=== PATIENT | female | born 1970 | race Two or more races ===

== ENCOUNTER 2019-03-24 11:35 | Inpatient (IN) | payer OTHER ==
[2019-03-24 12:16] VITALS: BMI 38.9
--- NOTE | 2019-03-24 13:00 | PDOC ---
History of Present Illness - General Chief Complaint: Edema Stated Complaint: Edema Time Seen by Provider: 03/24/19 13:00 History Source: Patient Exam Limitations: No Limitations - History of Present Illness Initial Comments: 03/24/19 13:15 48 year old female with PMH DVT/PE on Coumadin, chronic LLE wound (no wound care , uninsured) presented to ED for bruising since yesterday. Pt reported nontraumatic bruising to bilateral arms and legs. Pt reported her LLE wound has been present for 8 years, but has been increasingly painful over the last couple of days, limiting her mobility. Past History - Past Medical History Allergies/Adverse Reactions: Allergies Allergy/AdvReac Type Severity Reaction Status Date / Time No Known Allergies Allergy Verified 03/24/19 12:16 Home Medications: Ambulatory Orders Ferrous Sulfate Liquid [Feosol Liquid] 300 mg PO TID 09/11/12 Furosemide [Lasix -] 40 mg PO HS 09/11/12 Mesalamine [Asacol -] 800 mg PO TID 09/11/12 Multivitamin [Multivitamins] 1 each PO DAILY 09/11/12 Warfarin Sodium [Coumadin] 4 mg PO HS 09/11/12 Amox-Tr/K Cl [Augmentin] 1 each PO BID #14 tablet 09/19/12 Oxycodone HCl/Acetaminophen [Percocet 5-325 mg Tablet] 1 - 2 tab PO Q6H PRN #0 tablet 09/19/12 Pantoprazole Sodium [Protonix -] 40 mg PO BID #0 tablet.ec 09/19/12 Anemia: Yes Cardiac Disorders: Yes (afib) COPD: No GI Disorders: Yes (ulcerative colitis) HTN: Yes - Immunization History Immunization Up to Date: Yes - Suicide/Smoking/Psychosocial Hx Smoking Status: No Smoking History: Never smoked Have you smoked in the past 12 months: No Number of Cigarettes Smoked Daily: 0 If you are a former smoker, when did you quit?: stopped 5 yrs ago Cigars Per Day: 0 Information on smoking cessation initiated: No Hx Alcohol Use: No Drug/Substance Use Hx: No Substance Use Type: None Hx Substance Use Treatment: No Review of Systems - Review of Systems Able to Perform ROS?: Yes Comments:: 03/24/19 13:17 General: denied fever, chills, generalized weakness. HEENT: denied sore throat, rhinorrhea, ear pain. Heart: denied chest pain, palpitations, syncope, diaphoresis. Respiratory: denied shortness of breath, cough, sputum production, hemoptysis. Abdomen: denied abdominal pain, nausea, vomiting, diarrhea, constipation, blood in stool. : denied dysuria, increased urinary frequency, hematuria, urinary incontinence , flank pain. Back: denied back pain. Musculoskeletal: denied joint pain, muscle pain, joint swelling. Neurological: denied headache, dizziness, numbness, tingling, weakness. Skin: admitted to bruising. denied rash, laceration, abrasion. *Physical Exam - Vital Signs Last Vital Signs Temp Pulse Resp BP Pulse Ox 97.9 F 95 H 16 109/62 100 03/24/19 11:35 03/24/19 11:35 03/24/19 11:35 03/24/19 11:35 03/24/19 11:35 - Physical Exam Comments: 03/24/19 13:17 Constitutional: Well-nourished, Well-developed, appearing stated age. morbidly obese. HEENT: head is normocephalic, atraumatic. EOMI. PERRLA. Neck: supple. Full ROM. Heart: regular rhythm. no murmurs, rubs or gallops. Lungs: clear to auscultation bilaterally. no crackles, rhonchi or wheezing. no stridor. Abdomen: soft, nontender. normal bowel sounds. no rebound, guarding, masses. Extremities: peripheral pulses intact. no lower extremity edema. Neurological: CN 2-12 grossly intact. moves all four extremities. Psych: awake, alert, oriented x3. follows commands. answers questions appropriately. Skin: diffuse ecchymoses to left hand, right hand, left foot, right foot. 30 cm cricumferential ulcer to left medial lower leg, draining purulent fluid. erythema to left foot. ED Treatment Course - LABORATORY CBC & Chemistry Diagram: 03/25/19 09:30 03/25/19 09:30 Medical Decision Making - Medical Decision Making 03/24/19 13:18 48 year old female with above PMH presented to ED for diffuse ecchymoses since yesterday. Pt also complaining of increasing pain to chronic LLE wound. Initial Vital Signs Temp Pulse Resp BP Pulse Ox 97.9 F 95 H 16 109/62 100 03/24/19 11:35 03/24/19 11:35 03/24/19 11:35 03/24/19 11:35 03/24/19 11:35 Afebrile. No tachycardia. No tachypnea. Mild hypotension. No hypoxia on room air. Labs ordered: CBC, CMP, coags, BNP, blood cultures, phos, mag, Imaging ordered: none Medications ordered: tylenol IV 03/24/19 14:07 CBC WBC 20.3 K/mm3 (4.0-10.0) H 03/24/19 13:07 RBC 2.66 M/mm3 (3.60-5.2) L 03/24/19 13:07 Hgb 6.0 GM/dL (10.7-15.3) L* 03/24/19 13:07 Hct 19.7 % (32.4-45.2) L D 03/24/19 13:07 MCV 74.1 fl (80-96) L 03/24/19 13:07 MCH 22.4 pg (25.7-33.7) L 03/24/19 13:07 MCHC 30.3 g/dl (32.0-36.0) L 03/24/19 13:07 RDW 21.4 % (11.6-15.6) H 03/24/19 13:07 Plt Count 598 K/MM3 (134-434) H 03/24/19 13:07 MPV 7.3 fl (7.5-11.1) L 03/24/19 13:07 Absolute Neuts (auto) 18.2 K/mm3 (1.5-8.0) H 03/24/19 13:07 Neutrophils % 89.6 % (42.8-82.8) H 03/24/19 13:07 Neutrophils % (Manual) 90.0 % (42.8-82.8) H 03/24/19 13:07 Band Neutrophils % 3.0 % 03/24/19 13:07 Lymphocytes % 6.1 % (8-40) L D 03/24/19 13:07 Lymphocytes % (Manual) 4.0 % (8-40) L 03/24/19 13:07 Monocytes % 4.2 % (3.8-10.2) 03/24/19 13:07 Monocytes % (Manual) 3 % (3.8-10.2) L 03/24/19 13:07 Eosinophils % 0.0 % (0-4.5) D 03/24/19 13:07 Eosinophils % (Manual) 0.0 % (0-4.5) 03/24/19 13:07 Basophils % 0.1 % (0-2.0) 03/24/19 13:07 Basophils % (Manual) 0.0 % (0-2.0) 03/24/19 13:07 Myelocytes % (Man) 0 % (0-2) 03/24/19 13:07 Promyelocytes % (Man) 0 % (0-2) 03/24/19 13:07 Blast Cells % (Manual) 0 % (0-0) 03/24/19 13:07 Nucleated RBC % 0 % (0-0) 03/24/19 13:07 Metamyelocytes 0 % (0-2) 03/24/19 13:07 Hypochromia 1+ 03/24/19 13:07 Platelet Estimate Increased 03/24/19 13:07 Platelet Comment Present 03/24/19 13:07 Polychromasia 1+ 03/24/19 13:07 Poikilocytosis 1+ 03/24/19 13:07 Anisocytosis 2+ 03/24/19 13:07 Microcytosis 1+ 03/24/19 13:07 Macrocytosis 0 03/24/19 13:07 Tear Drop Cells 1+ 03/24/19 13:07 Ovalocytes 1+ 03/24/19 13:07 Microcytic anemia Leukocytosis with left shift. Thrombocytosis. CMP Sodium 141 mmol/L (136-145) 03/24/19 13:07 Potassium 4.0 mmol/L (3.5-5.1) 03/24/19 13:07 Chloride 108 mmol/L (98-107) H 03/24/19 13:07 Carbon Dioxide 26 mmol/L (21-32) 03/24/19 13:07 Anion Gap 7 MMOL/L (8-16) L 03/24/19 13:07 BUN 20.8 mg/dL (7-18) H 03/24/19 13:07 Creatinine 0.8 mg/dL (0.55-1.3) 03/24/19 13:07 Est GFR (CKD-EPI)AfAm 100.33 03/24/19 13:07 Est GFR (CKD-EPI)NonAf 86.57 03/24/19 13:07 Random Glucose 123 mg/dL (74-106) H 03/24/19 13:07 Calcium 7.8 mg/dL (8.5-10.1) L 03/24/19 13:07 Phosphorus 2.3 mg/dL (2.5-4.9) L 03/24/19 13:07 Magnesium 2.3 mg/dL (1.8-2.4) 03/24/19 13:07 Total Bilirubin 0.2 mg/dL (0.2-1) 03/24/19 13:07 AST 11 U/L (15-37) L 03/24/19 13:07 ALT 20 U/L (13-61) 03/24/19 13:07 Alkaline Phosphatase 122 U/L (45-117) H 03/24/19 13:07 B-Natriuretic Peptide 301.5 pg/ml (5-125) H 03/24/19 13:07 Total Protein 5.9 g/dl (6.4-8.2) L 03/24/19 13:07 Albumin 2.3 g/dl (3.4-5.0) L 03/24/19 13:07 TSH 0.79 uIU/ml (0.358-3.74) 03/24/19 13:07 Serum , Qual Negative 03/24/19 13:07 No electrolyte abnormalities. No MANDO. Corrected Calcium 8.7 Low phosphorus. Normal TSH. Mildly elevated BNP. Pt reassessed, pain not improved with Tylenol. Pt informed of results and need for blood transfusion, admission, wound care, IV antibiotics. Pt agree with plan for care. Medications ordered: 1 phos packet, morphine 4 mg IV, vancomycin, zosyn Labs ordered: stool for blood, T/S 03/24/19 15:[address] Hurtado about the patient, pt to be admitted. She recommended CT abdomen/pelvis to rule out retroperitoneal bleeding. Imaging ordered: CT abdomen/pelvis with IV contrast. 03/24/19 17:38 Stool for blood positive. 03/25/19 15:04 Follow up: CT abdomen/pelvis report: Comparison: Prior CT scan of the abdomen pelvis dated 04/29/2012 Visualized lung base appears unremarkable and the heart is within normal limits in size. There is a [id number] hiatus hernia. The stomach is nondistended limiting evaluation of its wall. The liver, spleen, gallbladder , pancreas, both adrenal glands and both kidneys appear unremarkable. There is no evidence of small bowel obstruction. Normal-appearing terminal ileum and appendix. Normal stool burden the colon without wall thickening. There is suggestion of a few diverticula in the mid descending colon without evidence of acute diverticulitis. Inferior vena cava filter is in satisfactory position. No free air, free fluid or gross enlarged lymph nodes are identified. Partially distended urinary bladder without wall thickening. Normal size uterus. There is a cyst in the right and left ovary measuring approximately 2.3 cm on the right and 2.3 cm on the left suggestive of dominant follicles. Perirectal and pericecal fat are clear. There is 1.4 cm anterolisthesis of L5 over S1 with bilateral spondylolysis of L5 pars interarticularis The rest of the included the visualized osseous structures appear intact. Impression: Interval small to moderate size hiatus hernia. Inferior vena cava filter is in satisfactory position. A few diverticula in the mid descending colon without wall thickening or evidence of acute diverticulitis. No CT evidence of an acute process in the abdomen and pelvis. Correlate clinically to determine further evaluation and follow-up. CXR report: Since 08/22/2012, the cardiac silhouette remains within normal limits in size with mild atherosclerotic unfolding of the aortic arch and mild bilateral increased lung markings. Mild elevation of the right hemidiaphragm. Mediastinum and visualized osseous structures appear intact Impression: Mild increased lung markings without gross evidence of focal infiltrates or gross pulmonary venous congestion. Correlate clinically for follow-up. *DC/Admit/Observation/Transfer Diagnosis at time of Disposition: Supratherapeutic INR, Leukocytosis, Wound of lower extremity, Anemia - Discharge Dispostion Condition at time of disposition: Stable Decision to Admit order: Yes - Referrals - Patient Instructions - Post Discharge Activity
[2019-03-24] MEDS ORDERED: ACETAMINOPHEN 1000 MG/100 ML VIAL (NON FORMULARY) IVPB ONE (13:15)
[2019-03-24] MEDS ORDERED: ACETAMINOPHEN INJECTION 100 ML IVPB ONE (13:26)
[2019-03-24 13:36] LABS: BASO % 0.1 % (0-2.0); HEMATOCRIT 19.7 % (32.4-45.2); LYMPH % 6.1 % (8-40); MCH 22.4 pg (25.7-33.7); MCHC 30.3 g/dl (32.0-36.0); MEAN CELL VOLUME 74.1 fl (80-96); MEAN PLT VOLUME 7.3 fl (7.5-11.1); MONO % 4.2 % (3.8-10.2); NEUT % 89.6 % (42.8-82.8); PLATELET COUNT 598 K/MM3 (134-434); RBC 2.66 M/mm3 (3.60-5.2); RDW 21.4 % (11.6-15.6); WHITE BLOOD COUNT 20.3 K/mm3 (4.0-10.0)
[2019-03-24 13:42] LABS: PROTHROMBIN TIME (PATIENT) 63.8 SEC (9.7-13.0)
[2019-03-24 13:45] LABS: ACTIVATED PTT 60.4 SECONDS (25.2-36.5)
[2019-03-24 14:05] LABS: INR 5.32 (0.83-1.09)
[2019-03-24] MEDS ORDERED: SODIUM CHLORIDE 1,000 ML IV STA (14:10)
[2019-03-24 14:13] LABS: ALBUMIN 2.3 g/dl (3.4-5.0); BILIRUBIN,TOTAL 0.2 mg/dL (0.2-1); BLOOD UREA NITROGEN 20.8 mg/dL (7-18); CALCIUM 7.8 mg/dL (8.5-10.1); CREATININE 0.8 mg/dL (0.55-1.3); MAGNESIUM 2.3 mg/dL (1.8-2.4); N-TERMINAL BNP 301.5 pg/ml (5-125); PHOSPHOROUS 2.3 mg/dL (2.5-4.9); TOT PROT 5.9 g/dl (6.4-8.2)
[2019-03-24] MEDS ORDERED: morphine CARPU-JECT 4 MG/1 ML DISP.SYRIN IVPUSH ONE ×2 (14:18→18:35)
[2019-03-24] MEDS ORDERED: NAPH,MB-DB/K PH,MBDB POWDER PACKET PO ONE (14:19)
[2019-03-24] MEDS ORDERED: VANCOMYCIN 1,000 MG in DEXTROSE 5%-WATER - 250 ML IVPB ONE (14:20)
[2019-03-24] MEDS ORDERED: PIPERACILLIN/TAZOB 4.5 GM 4.5 GM in DEXTROSE 5%-WATER 100 ML IVPB ONE (14:20)
[2019-03-24] MEDS ORDERED: CALCIUM CARBONATE 650 MG TABLET PO ONE (14:30)
[2019-03-24 14:47] LABS: ANISOCYTOSIS 2+; MACROCYTOSIS 0; OVALOCYTE 1+; PLATELET ESTIMATE INCREASED; TEAR DROP CELLS 1+
[2019-03-24] MEDS ORDERED: PIPERACILLIN/TAZOB 4.5 GM 4.5 GM/100 ML BAG IVPB ONE (14:49)
[2019-03-24] MEDS ORDERED: VANCOMYCIN 1 GRAM (PRE-DOCKED) 1,000 MG/250 ML BAG IVPB ONE (14:49)
[2019-03-24] MEDS ORDERED: morphine SULFATE 4 MG/ML VIAL ONE ×2 (14:49→18:25)
--- NOTE | 2019-03-24 15:27 | PDOC ---
Documentation entered by Meliton Henning SCRIBE, acting as scribe for Nathaly Cano MD. Nathaly Cano MD: This documentation has been prepared by the Milady phillips Nirvannie, SCRIBE, under my direction and personally reviewed by me in its entirety. I confirm that the documentation accurately reflects all work, treatment, procedures, and medical decision making performed by me. Attending Attestation - Resident Resident Name: Kyleigh Isabel - ED Attending Attestation I have performed the following: I have examined & evaluated the patient, The case was reviewed & discussed with the resident, I agree w/resident's findings & plan, Exceptions are as noted - HPI HPI: 03/24/19 14:10 The patient is a 48 year old female, with a significant past medical history of anemia, ulcerative colitis, DVT/PE, and Afib (on Coumadin), who presents to the emergency department with, blt nontraumatic upper and lower extremity bruising and LLE ulcer with increased pain. She denies recent chest pain or shortness of breath. Allergies: NKDA - Physicial Exam PE: 03/24/19 13:12 GENERAL: Awake, alert, and fully oriented, in no acute distress HEAD: No signs of trauma EYES: PERRLA, EOMI, sclera anicteric, conjunctiva clear ENT: Auricles normal inspection, hearing grossly normal, nares patent, oropharynx clear without exudates. Moist mucosa NECK: Normal ROM, supple, no lymphadenopathy, JVD, or masses LUNGS: Breath sounds equal, clear to auscultation bilaterally. No wheezes, and no crackles HEART: Regular rate and rhythm, normal S1 and S2, no murmurs, rubs or gallops ABDOMEN: Soft, nontender, normoactive bowel sounds. No guarding, no rebound. No masses EXTREMITIES: Normal range of motion. 3+ pitting edema to RLE. No clubbing or cyanosis. No cords, erythema, or tenderness. LLE with large wound 30 cm long ( extending from knee to the ankle, circumferential), +malodorous yellow discharge from the entire wound. No muscle exposure. L foot erythematous and significantly swollen and tender with warmth. NEUROLOGICAL: Cranial nerves II through XII grossly intact. Normal speech. Motor and sensation intact SKIN: Warm, Dry, normal turgor. - Medical Decision Making Pt found to have severe anemia, as well as leukocytosis. Treated with broad spectrum abx for large leg wound. Will admit.
--- NOTE | 2019-03-24 17:33 | HP ---
Admitting History and Physical - Primary Care Physician PCP: Salome Hurtado - Admission History of Present Illness: 48 year old female with PMH DVT/PE on Coumadin, chronic LLE wound (no wound care , uninsured) presented to ED for bruising since yesterday. Pt reported nontraumatic bruising to bilateral arms and legs. Pt reported her LLE wound has been present for 8 years, but has been increasingly painful over the last couple of days, limiting her mobility. - Past Medical History Pulmonary: Yes: Pulmonary Embolus ...LMP: 11/06/11 Heme/Onc: Yes: Other (dvt) - Smoking History Smoking history: Never smoked Have you smoked in the past 12 months: No Aproximately how many cigarettes per day: 0 If you are a former smoker, when did you quit?: stopped 5 yrs ago - Alcohol/Substance Use Hx Alcohol Use: No Home Medications - Allergies Allergies/Adverse Reactions: Allergies Allergy/AdvReac Type Severity Reaction Status Date / Time No Known Allergies Allergy Verified 03/24/19 12:16 - Home Medications Home Medications: Ambulatory Orders Ferrous Sulfate Liquid [Feosol Liquid] 300 mg PO TID 09/11/12 Furosemide [Lasix -] 40 mg PO HS 09/11/12 Mesalamine [Asacol -] 800 mg PO TID 09/11/12 Multivitamin [Multivitamins] 1 each PO DAILY 09/11/12 Warfarin Sodium [Coumadin] 4 mg PO HS 09/11/12 Amox-Tr/K Cl [Augmentin] 1 each PO BID #14 tablet 09/19/12 Oxycodone HCl/Acetaminophen [Percocet 5-325 mg Tablet] 1 - 2 tab PO Q6H PRN #0 tablet 09/19/12 Pantoprazole Sodium [Protonix -] 40 mg PO BID #0 tablet.ec 09/19/12 Physical Examination Vital Signs: Vital Signs Temperature 97.9 F 03/24/19 11:35 Pulse Rate 95 H 03/24/19 11:35 Respiratory Rate 16 03/24/19 11:35 Blood Pressure 109/62 03/24/19 11:35 O2 Sat by Pulse Oximetry (%) 100 03/24/19 11:35 Constitutional: Yes: No Distress HENT: Yes: Atraumatic Neck: Yes: Supple Cardiovascular: Yes: Regular Rate and Rhythm Respiratory: Yes: CTA Bilaterally Gastrointestinal: Yes: Normal Bowel Sounds Edema: No Neurological: Yes: Alert, Oriented Labs: CBC, BMP 03/24/19 13:07 03/24/19 13:07 Problem List - Problems (1) Anemia Assessment/Plan: getting blood transfusion Code(s): D64.9 - ANEMIA, UNSPECIFIED (2) Leukocytosis Code(s): D72.829 - ELEVATED WHITE BLOOD CELL COUNT, UNSPECIFIED (3) Supratherapeutic INR Code(s): R79.1 - ABNORMAL COAGULATION PROFILE (4) Wound of lower extremity Assessment/Plan: iv abx id and vascular consult Code(s): S81.809A - UNSPECIFIED OPEN WOUND, UNSPECIFIED LOWER LEG, INIT ENCNTR Assessment/Plan Laboratory Tests 03/24/19 03/24/19 03/24/19 13:07 13:07 13:07 WBC 20.3 H RBC 2.66 L Hgb 6.0 L* Hct 19.7 L D MCV 74.1 L MCH 22.4 L MCHC 30.3 L RDW 21.4 H Plt Count 598 H MPV 7.3 L Absolute Neuts (auto) 18.2 H Neutrophils % 89.6 H Neutrophils % (Manual) 90.0 H Band Neutrophils % 3.0 Lymphocytes % 6.1 L D Lymphocytes % (Manual) 4.0 L Monocytes % 4.2 Monocytes % (Manual) 3 L Eosinophils % 0.0 D Eosinophils % (Manual) 0.0 Basophils % 0.1 Basophils % (Manual) 0.0 Myelocytes % (Man) 0 Promyelocytes % (Man) 0 Blast Cells % (Manual) 0 Nucleated RBC % 0 Metamyelocytes 0 Hypochromia 1+ Platelet Estimate Increased Platelet Comment Present Polychromasia 1+ Poikilocytosis 1+ Anisocytosis 2+ Microcytosis 1+ Macrocytosis 0 Tear Drop Cells 1+ Ovalocytes 1+ PT with INR 63.80 H INR 5.32 H* PTT (Actin FS) 60.4 H Sodium 141 Potassium 4.0 Chloride 108 H Carbon Dioxide 26 Anion Gap 7 L BUN 20.8 H Creatinine 0.8 Est GFR (CKD-EPI)AfAm 100.33 Est GFR (CKD-EPI)NonAf 86.57 Random Glucose 123 H Calcium 7.8 L Phosphorus 2.3 L Magnesium 2.3 Total Bilirubin 0.2 AST 11 L ALT 20 Alkaline Phosphatase 122 H B-Natriuretic Peptide 301.5 H Total Protein 5.9 L Albumin 2.3 L TSH 0.79 Serum , Qual Stool Occult Blood Crossmatch 03/24/19 03/24/19 03/24/19 13:07 15:41 16:00 WBC RBC Hgb Hct MCV MCH MCHC RDW Plt Count MPV Absolute Neuts (auto) Neutrophils % Neutrophils % (Manual) Band Neutrophils % Lymphocytes % Lymphocytes % (Manual) Monocytes % Monocytes % (Manual) Eosinophils % Eosinophils % (Manual) Basophils % Basophils % (Manual) Myelocytes % (Man) Promyelocytes % (Man) Blast Cells % (Manual) Nucleated RBC % Metamyelocytes Hypochromia Platelet Estimate Platelet Comment Polychromasia Poikilocytosis Anisocytosis Microcytosis Macrocytosis Tear Drop Cells Ovalocytes PT with INR INR PTT (Actin FS) Sodium Potassium Chloride Carbon Dioxide Anion Gap BUN Creatinine Est GFR (CKD-EPI)AfAm Est GFR (CKD-EPI)NonAf Random Glucose Calcium Phosphorus Magnesium Total Bilirubin AST ALT Alkaline Phosphatase B-Natriuretic Peptide Total Protein Albumin TSH Serum , Qual Negative Stool Occult Blood Positive Crossmatch See Detail Active Medications Generic Name Dose Route Start Last Admin Trade Name Freq PRN Reason Stop Dose Admin Acetaminophen 650 mg 03/24/19 17:38 03/25/19 13:29 Tylenol - PO 650 mg Q6H PRN Administration FEVER Furosemide 40 mg 03/24/19 18:00 03/25/19 09:13 Lasix - PO 40 mg DAILY CELESTE Administration Vancomycin HCl 1,250 mg/ 250 mls @ 250 mls/2 hr 03/25/19 14:00 03/25/19 15:05 Dextrose IVPB 250 mls/2 hr Q24H CELESTE Administration Protocol Piperacillin Sod/Tazobactam 50 mls @ 100 mls/hr 03/25/19 18:00 Sod 3.375 gm/ Dextrose IVPB Q8H-IV CELESTE Protocol Mesalamine 800 mg 03/24/19 22:00 03/25/19 13:30 Asacol Hd - PO 800 mg TID CELESTE Administration Oxycodone HCl 10 mg 03/24/19 17:38 03/25/19 09:46 Roxicodone - PO 10 mg Q6H PRN Administration PAIN SCALE 6-10 Pantoprazole Sodium 40 mg 03/24/19 22:00 03/25/19 09:13 Protonix - PO 40 mg BID CELESTE Administration
[2019-03-24] MEDS ORDERED: FUROSEMIDE 40 MG TABLET (FP) ONE (18:25)
[2019-03-24] MEDS: FUROSEMIDE 40 MG TABLET (FP) PO SCH (18:34)
[2019-03-24] MEDS: MESALAMINE 800 MG TABLET.DR PO SCH (21:17)
[2019-03-24] MEDS: PANTOPRAZOLE 40 MG TABLET (FP) PO SCH (21:17)
[2019-03-24] MEDS: oxyCODONE HCL 5 MG TABLET PO PRN (21:18)
[2019-03-24 22:05] LABS: BASO % 0.2 % (0-2.0); EOS % 0.4 % (0-4.5); LYMPH % 7.6 % (8-40); MCH 22.4 pg (25.7-33.7); MCHC 29.7 g/dl (32.0-36.0); MEAN CELL VOLUME 75.4 fl (80-96); MEAN PLT VOLUME 7.2 fl (7.5-11.1); MONO % 4.9 % (3.8-10.2); NEUT % 86.9 % (42.8-82.8); PLATELET COUNT 601 K/MM3 (134-434); RBC 2.52 M/mm3 (3.60-5.2); RDW 21.3 % (11.6-15.6); WHITE BLOOD COUNT 17.7 K/mm3 (4.0-10.0)
[2019-03-24 22:15] LABS: HEMOGLOBIN 5.6 GM/dL (10.7-15.3)
[2019-03-24 22:18] LABS: PROTHROMBIN TIME (PATIENT) 53.5 SEC (9.7-13.0)
[2019-03-24 22:39] LABS: INR 4.47 (0.83-1.09)
[2019-03-25] MEDS: ACETAMINOPHEN 325 MG TABLET (FP) PO PRN ×2 (00:18→13:29)
[2019-03-25] MEDS: oxyCODONE HCL 5 MG TABLET PO PRN ×4 (03:46→22:09)
[2019-03-25] MEDS: MESALAMINE 800 MG TABLET.DR PO SCH ×3 (05:59→22:08)
[2019-03-25] MEDS: FUROSEMIDE 40 MG TABLET (FP) PO SCH (09:13)
[2019-03-25] MEDS: PANTOPRAZOLE 40 MG TABLET (FP) PO SCH ×2 (09:13→22:09)
[2019-03-25 10:29] LABS: BASO % 0.3 % (0-2.0); EOS % 0.6 % (0-4.5); HEMATOCRIT 26.8 % (32.4-45.2); HEMOGLOBIN 8.6 GM/dL (10.7-15.3); LYMPH % 10.9 % (8-40); MCH 25.3 pg (25.7-33.7); MCHC 32.1 g/dl (32.0-36.0); MEAN CELL VOLUME 78.8 fl (80-96); MEAN PLT VOLUME 7.7 fl (7.5-11.1); MONO % 7.3 % (3.8-10.2); NEUT % 80.9 % (42.8-82.8); PLATELET COUNT 518 K/MM3 (134-434); RDW 21.1 % (11.6-15.6); WHITE BLOOD COUNT 12.7 K/mm3 (4.0-10.0)
[2019-03-25 11:46] LABS: ALBUMIN 2.1 g/dl (3.4-5.0); BILIRUBIN,TOTAL 0.7 mg/dL (0.2-1); BLOOD UREA NITROGEN 11.4 mg/dL (7-18); CALCIUM 7.4 mg/dL (8.5-10.1); CREATININE 0.8 mg/dL (0.55-1.3); POTASSIUM 4.2 mmol/L (3.5-5.1); TOT PROT 5.8 g/dl (6.4-8.2)
--- NOTE | 2019-03-25 12:44 | EKG ---
Test Reason : Blood Pressure : / mmHG Vent. Rate : 113 BPM Atrial Rate : 113 BPM P-R Int : 126 ms QRS Dur : 084 ms QT Int : 318 ms P-R-T Axes : 014 -04 -14 degrees QTc Int : 436 ms SINUS TACHYCARDIA MODERATE VOLTAGE CRITERIA FOR LVH, MAY BE NORMAL VARIANT BORDERLINE ECG WHEN COMPARED WITH ECG OF 23-APR-2012 11:52, VENT. RATE HAS INCREASED BY 37 BPM Confirmed by Osbaldo Moya MD ([id number]) on 03/25/2019 12:44:05 PM Referred By: Confirmed By:Osbaldo Moya MD
--- NOTE | 2019-03-25 13:18 | CON.ID ---
Consult Consult Specialty:: infectious diseases Referred by:: Reason for Consultation:: left ext wound - History of Present Illness Chief Complaint: non healing wound of the left leg History of Present Illness: 48 year old female with PMH DVT/PE on Coumadin, chronic LLE wound presented to ED for bruising since yesterday. Pt reported nontraumatic bruising to bilateral arms and legs. Pt reported her LLE wound has been present for 9 years, but has been increasingly painful over the last couple of days, limiting her mobility. i removed the dressing and looked at the wound the wound is extensive and goes from the ankle to the knee joint--she has lost skin uptill that point wound draining foul smelling and is extensive - History Source History Provided By: Patient, Medical Record Limitations to Obtaining History: Language Barrier - Past Medical History Pulmonary: Yes: Pulmonary Embolus ...LMP: 11/06/11 - Alcohol/Substance Use Hx Alcohol Use: No - Smoking History Smoking history: Never smoked Have you smoked in the past 12 months: No Aproximately how many cigarettes per day: 0 If you are a former smoker, when did you quit?: stopped 5 yrs ago Home Medications - Allergies Allergies/Adverse Reactions: Allergies Allergy/AdvReac Type Severity Reaction Status Date / Time No Known Allergies Allergy Verified 03/24/19 12:16 - Home Medications Home Medications: Ambulatory Orders Ferrous Sulfate Liquid [Feosol Liquid] 300 mg PO TID 09/11/12 Furosemide [Lasix -] 40 mg PO HS 09/11/12 Mesalamine [Asacol -] 800 mg PO TID 09/11/12 Multivitamin [Multivitamins] 1 each PO DAILY 09/11/12 Warfarin Sodium [Coumadin] 4 mg PO HS 09/11/12 Amox-Tr/K Cl [Augmentin] 1 each PO BID #14 tablet 09/19/12 Oxycodone HCl/Acetaminophen [Percocet 5-325 mg Tablet] 1 - 2 tab PO Q6H PRN #0 tablet 09/19/12 Pantoprazole Sodium [Protonix -] 40 mg PO BID #0 tablet.ec 09/19/12 Review of Systems - Review of Systems Constitutional: reports: Weakness, Other Eyes: reports: No Symptoms HENT: reports: No Symptoms Neck: reports: No Symptoms Cardiovascular: reports: No Symptoms Respiratory: reports: No Symptoms Gastrointestinal: reports: No Symptoms Genitourinary: reports: No Symptoms Musculoskeletal: reports: No Symptoms Integumentary: reports: Erythema, Wound Neurological: reports: No Symptoms Endocrine: reports: No Symptoms Hematology/Lymphatic: reports: No Symptoms Psychiatric: reports: No Symptoms Physical Exam Vital Signs: Vital Signs Temperature 98.3 F 03/25/19 09:16 Pulse Rate 112 H 03/25/19 09:16 Respiratory Rate 20 03/25/19 09:16 Blood Pressure 113/64 03/25/19 09:16 O2 Sat by Pulse Oximetry (%) 99 03/24/19 22:00 Constitutional: Yes: Well Nourished, Calm, Moderate Distress Eyes: Yes: Conjunctiva Clear HENT: Yes: Atraumatic, Normocephalic Neck: Yes: Supple, Trachea Midline Cardiovascular: Yes: Regular Rate and Rhythm Respiratory: Yes: Regular, CTA Bilaterally Gastrointestinal: Yes: Normal Bowel Sounds, Soft Musculoskeletal: Yes: WNL Extremities: Yes: Erythema, Other Wound/Incision: Yes: Dressing Removed, Other (draining extensive wound founl smell,fron ankle to knee joint) Neurological: Yes: Alert, Oriented Psychiatric: Yes: Alert, Oriented Labs: CBC, BMP 03/25/19 09:30 03/25/19 09:30 Imaging - Results Chest X-ray: Report Reviewed, Image Reviewed Cat Scan: Report Reviewed, Image Reviewed Assessment/Plan Problem List - Problems (1) Anemia Code(s): D64.9 - ANEMIA, UNSPECIFIED (2) Leukocytosis Code(s): D72.829 - ELEVATED WHITE BLOOD CELL COUNT, UNSPECIFIED (3) Supratherapeutic INR Code(s): R79.1 - ABNORMAL COAGULATION PROFILE (4) Wound of lower extremity Code(s): S81.809A - UNSPECIFIED OPEN WOUND, UNSPECIFIED LOWER LEG, INIT ENCNTR plan will start patient on abx wound care plastics rest as per the team cx reports
--- NOTE | 2019-03-25 13:59 | CONSULT ---
Consult Consult Specialty:: vascular Surgery Reason for Consultation:: Left lower ext wound. - Past Medical History Pulmonary: Yes: Pulmonary Embolus ...LMP: 11/06/11 - Alcohol/Substance Use Hx Alcohol Use: No - Smoking History Smoking history: Never smoked Have you smoked in the past 12 months: No Aproximately how many cigarettes per day: 0 If you are a former smoker, when did you quit?: stopped 5 yrs ago Home Medications - Allergies Allergies/Adverse Reactions: Allergies Allergy/AdvReac Type Severity Reaction Status Date / Time No Known Allergies Allergy Verified 03/24/19 12:16 - Home Medications Home Medications: Ambulatory Orders Ferrous Sulfate Liquid [Feosol Liquid] 300 mg PO TID 09/11/12 Furosemide [Lasix -] 40 mg PO HS 09/11/12 Mesalamine [Asacol -] 800 mg PO TID 09/11/12 Multivitamin [Multivitamins] 1 each PO DAILY 09/11/12 Warfarin Sodium [Coumadin] 4 mg PO HS 09/11/12 Amox-Tr/K Cl [Augmentin] 1 each PO BID #14 tablet 09/19/12 Oxycodone HCl/Acetaminophen [Percocet 5-325 mg Tablet] 1 - 2 tab PO Q6H PRN #0 tablet 09/19/12 Pantoprazole Sodium [Protonix -] 40 mg PO BID #0 tablet.ec 09/19/12 Review of Systems - Review of Systems Constitutional: reports: Chills, Lethargy Eyes: reports: No Symptoms HENT: reports: No Symptoms Neck: reports: No Symptoms Cardiovascular: reports: No Symptoms Respiratory: reports: No Symptoms Gastrointestinal: reports: No Symptoms Genitourinary: reports: No Symptoms Musculoskeletal: reports: No Symptoms Integumentary: reports: No Symptoms Neurological: reports: No Symptoms Hematology/Lymphatic: reports: No Symptoms Psychiatric: reports: No Symptoms Physical Exam Vital Signs: Vital Signs Temperature 98.3 F 03/25/19 09:16 Pulse Rate 112 H 03/25/19 09:16 Respiratory Rate 20 03/25/19 09:16 Blood Pressure 113/64 03/25/19 09:16 O2 Sat by Pulse Oximetry (%) 99 03/24/19 22:00 Constitutional: Yes: Well Nourished, No Distress, Calm Eyes: Yes: WNL, Conjunctiva Clear, EOM Intact HENT: Yes: WNL, Atraumatic, Normocephalic Neck: Yes: WNL, Supple, Trachea Midline Cardiovascular: Yes: WNL, Regular Rate and Rhythm Respiratory: Yes: WNL, Regular, CTA Bilaterally Gastrointestinal: Yes: WNL, Normal Bowel Sounds ...Rectal Exam: Yes: WNL Renal/: Yes: WNL Breast(s): Yes: WNL Musculoskeletal: Yes: WNL Extremities: Yes: WNL Edema: Yes (LLE cellulitis , weeping,) Edema: LLE: 3+ Peripheral Pulses WNL: Yes Integumentary: Yes: WNL Neurological: Yes: WNL, Alert, Oriented ...Motor Strength: WNL Psychiatric: Yes: WNL Labs: CBC, BMP 03/25/19 09:30 03/25/19 09:30 Problem List - Problems (1) Wound of left lower extremity Assessment/Plan: Pt seen and examined. ID on case for IV antibiotics Xeroform, 4x4, kerlex for dressing daily Kwame Marcum DO Code(s): S81.802A - UNSPECIFIED OPEN WOUND, LEFT LOWER LEG, INITIAL ENCOUNTER
[2019-03-25] MEDS ORDERED: VANCOMYCIN HCL 1,250 MG in DEXTROSE 5%-WATER - 250 ML IVPB SCH (14:00)
--- NOTE | 2019-03-25 15:35 | PN ---
Progress Note, Physician History of Present Illness: stable - Current Medication List Current Medications: Active Medications Acetaminophen (Tylenol -) 650 mg PO Q6H PRN PRN Reason: FEVER Last Admin: 03/25/19 13:29 Dose: 650 mg Furosemide (Lasix -) 40 mg PO DAILY [facility] Last Admin: 03/25/19 09:13 Dose: 40 mg Vancomycin HCl 1,250 mg/ (Dextrose) 250 mls @ 250 mls/2 hr IVPB Q24H [facility]; Protocol Last Admin: 03/25/19 15:05 Dose: 250 mls/2 hr Piperacillin Sod/Tazobactam (Sod 3.375 gm/ Dextrose) 50 mls @ 100 mls/hr IVPB Q8H-IV [facility]; Protocol Mesalamine (Asacol Hd -) 800 mg PO TID [facility] Last Admin: 03/25/19 13:30 Dose: 800 mg Oxycodone HCl (Roxicodone -) 10 mg PO Q6H PRN PRN Reason: PAIN SCALE 6-10 Last Admin: 03/25/19 09:46 Dose: 10 mg Pantoprazole Sodium (Protonix -) 40 mg PO BID [facility] Last Admin: 03/25/19 09:13 Dose: 40 mg - Objective Vital Signs: Vital Signs Temperature 99.0 F 03/25/19 14:00 Pulse Rate 119 H 03/25/19 14:00 Respiratory Rate 20 03/25/19 14:00 Blood Pressure 113/72 03/25/19 14:00 O2 Sat by Pulse Oximetry (%) 99 03/24/19 22:00 HENT: Yes: Atraumatic Neck: Yes: Supple Cardiovascular: Yes: Regular Rate and Rhythm Respiratory: Yes: CTA Bilaterally Gastrointestinal: Yes: Normal Bowel Sounds Extremities: Yes: Other (LLex wound) Edema: Yes Edema: LLE: 3+ Neurological: Yes: Alert, Oriented Labs: CBC, BMP 03/25/19 09:30 03/25/19 09:30 INR, PTT INR 4.47 (0.83-1.09) H* 03/24/19 21:15 Problem List - Problems (1) Anemia Assessment/Plan: s/p blood transfusion h/h stable Code(s): D64.9 - ANEMIA, UNSPECIFIED (2) Leukocytosis Code(s): D72.829 - ELEVATED WHITE BLOOD CELL COUNT, UNSPECIFIED (3) Supratherapeutic INR Code(s): R79.1 - ABNORMAL COAGULATION PROFILE (4) Wound of lower extremity Assessment/Plan: iv abx id and vascular consult woundcare dressing change Code(s): S81.809A - UNSPECIFIED OPEN WOUND, UNSPECIFIED LOWER LEG, INIT ENCNTR
[2019-03-25] MEDS ORDERED: DEXTROSE 5%-WATER - 50 ML IVPB ONE (17:24)
[2019-03-25] MEDS ORDERED: PIPERACILLIN/TAZOBACTAM 3.375 GM VIAL IVPB ONE (17:24)
[2019-03-25] MEDS: PIPERACILLIN/TAZOB 3.375 GM 3.375 GM in DEXTROSE 5%-WATER - 50 ML IVPB SCH (18:18)
[2019-03-25 20:10] LABS: INR 2.18 (0.83-1.09); PROTHROMBIN TIME (PATIENT) 25.9 SEC (9.7-13.0)
[2019-03-25] MEDS ORDERED: PT OWN MED DRAWER 7, Y5N ONE (21:04)
[2019-03-26] MEDS ORDERED: DEXTROSE 5%-WATER - 50 ML IVPB ONE ×3 (01:27→18:33)
[2019-03-26] MEDS ORDERED: PIPERACILLIN/TAZOBACTAM 3.375 GM VIAL IVPB ONE ×3 (01:27→18:33)
[2019-03-26] MEDS: PIPERACILLIN/TAZOB 3.375 GM 3.375 GM in DEXTROSE 5%-WATER - 50 ML IVPB SCH ×3 (02:03→18:42)
[2019-03-26] MEDS: oxyCODONE HCL 5 MG TABLET PO PRN ×4 (04:08→21:43)
[2019-03-26] MEDS: MESALAMINE 800 MG TABLET.DR PO SCH ×3 (06:46→21:35)
[2019-03-26] MEDS: ACETAMINOPHEN 325 MG TABLET (FP) PO PRN ×2 (09:11→18:44)
[2019-03-26] MEDS: PANTOPRAZOLE 40 MG TABLET (FP) PO SCH ×2 (09:13→21:35)
[2019-03-26] MEDS: FUROSEMIDE 40 MG TABLET (FP) PO SCH (09:13)
--- NOTE | 2019-03-26 12:25 | PN ---
Progress Note, Physician History of Present Illness: stable no new issues - Current Medication List Current Medications: Active Medications Acetaminophen (Tylenol -) 650 mg PO Q6H PRN PRN Reason: FEVER Last Admin: 03/26/19 09:11 Dose: 650 mg Furosemide (Lasix -) 40 mg PO DAILY [facility] Last Admin: 03/26/19 09:13 Dose: 40 mg Piperacillin Sod/Tazobactam (Sod 3.375 gm/ Dextrose) 50 mls @ 100 mls/hr IVPB Q8H-IV [facility]; Protocol Last Admin: 03/26/19 09:14 Dose: 100 mls/hr Mesalamine (Asacol Hd -) 800 mg PO TID [facility] Last Admin: 03/26/19 06:46 Dose: 800 mg Oxycodone HCl (Roxicodone -) 10 mg PO Q6H PRN PRN Reason: PAIN SCALE 6-10 Last Admin: 03/26/19 10:35 Dose: 10 mg Pantoprazole Sodium (Protonix -) 40 mg PO BID [facility] Last Admin: 03/26/19 09:13 Dose: 40 mg - Objective Vital Signs: Vital Signs Temperature 99.3 F 03/26/19 06:00 Pulse Rate 116 H 03/26/19 06:00 Respiratory Rate 20 03/26/19 06:00 Blood Pressure 109/68 03/26/19 06:00 O2 Sat by Pulse Oximetry (%) 100 03/25/19 21:00 Constitutional: Yes: No Distress, Calm Cardiovascular: Yes: Regular Rate and Rhythm Respiratory: Yes: Regular, CTA Bilaterally Gastrointestinal: Yes: Normal Bowel Sounds, Soft Musculoskeletal: Yes: WNL Extremities: Yes: Other Integumentary: Yes: Other Wound/Incision: Yes: Dressing Dry and Intact, Draining Neurological: Yes: Alert, Oriented Psychiatric: Yes: Alert, Oriented Labs: CBC, BMP 03/25/19 09:30 03/25/19 09:30 INR, PTT INR 2.18 (0.83-1.09) H 03/25/19 18:32 Assessment/Plan Problem List - Problems (1) Anemia Code(s): D64.9 - ANEMIA, UNSPECIFIED (2) Leukocytosis Code(s): D72.829 - ELEVATED WHITE BLOOD CELL COUNT, UNSPECIFIED (3) Supratherapeutic INR Code(s): R79.1 - ABNORMAL COAGULATION PROFILE (4) Wound of lower extremity Code(s): S81.809A - UNSPECIFIED OPEN WOUND, UNSPECIFIED LOWER LEG, INIT ENCNTR plan abx wound care plastics rest as per the team cx reports
--- NOTE | 2019-03-26 17:56 | PN ---
Progress Note, Physician History of Present Illness: stable - Current Medication List Current Medications: Active Medications Acetaminophen (Tylenol -) 650 mg PO Q6H PRN PRN Reason: FEVER Last Admin: 03/26/19 09:11 Dose: 650 mg Furosemide (Lasix -) 40 mg PO DAILY [facility] Last Admin: 03/26/19 09:13 Dose: 40 mg Piperacillin Sod/Tazobactam (Sod 3.375 gm/ Dextrose) 50 mls @ 100 mls/hr IVPB Q8H-IV [facility]; Protocol Last Admin: 03/26/19 09:14 Dose: 100 mls/hr Mesalamine (Asacol Hd -) 800 mg PO TID [facility] Last Admin: 03/26/19 16:02 Dose: 800 mg Oxycodone HCl (Roxicodone -) 10 mg PO Q6H PRN PRN Reason: PAIN SCALE 6-10 Last Admin: 03/26/19 16:02 Dose: 10 mg Pantoprazole Sodium (Protonix -) 40 mg PO BID [facility] Last Admin: 03/26/19 09:13 Dose: 40 mg - Objective Vital Signs: Vital Signs Temperature 99.1 F 03/26/19 14:00 Pulse Rate 115 H 03/26/19 14:00 Respiratory Rate 20 03/26/19 14:00 Blood Pressure 107/62 03/26/19 14:00 O2 Sat by Pulse Oximetry (%) 100 03/26/19 09:00 Constitutional: Yes: No Distress HENT: Yes: Atraumatic Neck: Yes: Supple Cardiovascular: Yes: Regular Rate and Rhythm Respiratory: Yes: CTA Bilaterally Gastrointestinal: Yes: Normal Bowel Sounds Extremities: Yes: Other (llex wound) Neurological: Yes: Alert, Oriented Labs: CBC, BMP 03/25/19 09:30 03/25/19 09:30 INR, PTT INR 2.18 (0.83-1.09) H 03/25/19 18:32 Problem List - Problems (1) Anemia Assessment/Plan: s/p blood transfusion h/h stable Code(s): D64.9 - ANEMIA, UNSPECIFIED (2) Leukocytosis Code(s): D72.829 - ELEVATED WHITE BLOOD CELL COUNT, UNSPECIFIED (3) Supratherapeutic INR Code(s): R79.1 - ABNORMAL COAGULATION PROFILE (4) Wound of lower extremity Assessment/Plan: iv abx id and vascular consult woundcare dressing change Code(s): S81.809A - UNSPECIFIED OPEN WOUND, UNSPECIFIED LOWER LEG, INIT ENCNTR
[2019-03-26 18:34] LABS: INR 1.38 (0.83-1.09); PROTHROMBIN TIME (PATIENT) 16.3 SEC (9.7-13.0)
[2019-03-26] MEDS: WARFARIN NA 2 MG TABLET (UD) PO SCH (21:35)
[2019-03-27] MEDS ORDERED: PIPERACILLIN/TAZOBACTAM 3.375 GM VIAL IVPB ONE ×3 (01:58→17:35)
[2019-03-27] MEDS ORDERED: DEXTROSE 5%-WATER - 50 ML IVPB ONE ×3 (01:58→17:35)
[2019-03-27] MEDS: PIPERACILLIN/TAZOB 3.375 GM 3.375 GM in DEXTROSE 5%-WATER - 50 ML IVPB SCH ×3 (02:12→18:05)
[2019-03-27] MEDS: oxyCODONE HCL 5 MG TABLET PO PRN ×5 (02:59→23:59)
[2019-03-27] MEDS: MESALAMINE 800 MG TABLET.DR PO SCH ×3 (06:41→21:15)
[2019-03-27] MEDS: FUROSEMIDE 40 MG TABLET (FP) PO SCH (09:55)
[2019-03-27] MEDS: PANTOPRAZOLE 40 MG TABLET (FP) PO SCH ×2 (09:55→21:15)
[2019-03-27] MEDS: ACETAMINOPHEN 325 MG TABLET (FP) PO PRN (12:42)
--- NOTE | 2019-03-27 15:06 | PN ---
Progress Note, Physician History of Present Illness: Pt seen and examined. Events noted. She is afebrile, complains of LE pain. - Current Medication List Current Medications: Active Medications Acetaminophen (Tylenol -) 650 mg PO Q6H PRN PRN Reason: FEVER Last Admin: 03/27/19 12:42 Dose: 650 mg Furosemide (Lasix -) 40 mg PO DAILY [facility] Last Admin: 03/27/19 09:55 Dose: 40 mg Piperacillin Sod/Tazobactam (Sod 3.375 gm/ Dextrose) 50 mls @ 100 mls/hr IVPB Q8H-IV [facility]; Protocol Last Admin: 03/27/19 09:55 Dose: 100 mls/hr Mesalamine (Asacol Hd -) 800 mg PO TID [facility] Last Admin: 03/27/19 06:41 Dose: 800 mg Oxycodone HCl (Roxicodone -) 10 mg PO Q6H PRN PRN Reason: PAIN SCALE 6-10 Last Admin: 03/27/19 08:16 Dose: 10 mg Pantoprazole Sodium (Protonix -) 40 mg PO BID [facility] Last Admin: 03/27/19 09:55 Dose: 40 mg Warfarin Sodium (Coumadin -) 4 mg PO DAILY@1800 [facility] Last Admin: 03/26/19 21:35 Dose: 4 mg - Objective Vital Signs: Vital Signs Temperature 98.2 F 03/27/19 06:00 Pulse Rate 117 H 03/27/19 06:00 Respiratory Rate 20 03/27/19 06:00 Blood Pressure 117/82 03/27/19 06:00 O2 Sat by Pulse Oximetry (%) 100 03/27/19 09:00 Constitutional: Yes: No Distress, Calm Cardiovascular: Yes: Regular Rate and Rhythm Respiratory: Yes: Regular Gastrointestinal: Yes: Normal Bowel Sounds, Soft, Abdomen, Obese Genitourinary: Yes: WNL Wound/Incision: Yes: Other (LE extensive wound from ankle to knee with mod drainage, +edema/tenderness) Neurological: Yes: Alert Labs: CBC, BMP 03/25/19 09:30 03/25/19 09:30 INR, PTT INR 1.38 (0.83-1.09) H 03/26/19 17:40 Microbiology 03/24/19 14:15 Skin - Superficial Wound Gram Stain - Final 03/24/19 14:15 Skin - Superficial Wound Wound Culture - Final Pseudomonas Aeruginosa Beta Hem Streptococcus Group G Staphylococcus Coagulase Neg 03/24/19 16:00 Blood - Peripheral Venous Blood Culture - Preliminary NO GROWTH OBTAINED AFTER 48 HOURS, INCUBATION TO CONTINUE FOR 3 DAYS. 03/24/19 15:30 Blood - Peripheral Venous Blood Culture - Preliminary NO GROWTH OBTAINED AFTER 48 HOURS, INCUBATION TO CONTINUE FOR 3 DAYS. Problem List - Problems (1) Leukocytosis Code(s): D72.829 - ELEVATED WHITE BLOOD CELL COUNT, UNSPECIFIED (2) Wound of lower extremity Code(s): S81.809A - UNSPECIFIED OPEN WOUND, UNSPECIFIED LOWER LEG, INIT ENCNTR Assessment/Plan Infected LE wound/ulcer Hx of DVT/PE Leukocytosis -- Wound culture isolates noted, continue Zosyn -- Continue wound care WBC trending down Pain control
--- NOTE | 2019-03-27 15:39 | PN ---
Progress Note, Physician History of Present Illness: stable - Current Medication List Current Medications: Active Medications Acetaminophen (Tylenol -) 650 mg PO Q6H PRN PRN Reason: FEVER Last Admin: 03/27/19 12:42 Dose: 650 mg Furosemide (Lasix -) 40 mg PO DAILY [facility] Last Admin: 03/27/19 09:55 Dose: 40 mg Piperacillin Sod/Tazobactam (Sod 3.375 gm/ Dextrose) 50 mls @ 100 mls/hr IVPB Q8H-IV [facility]; Protocol Last Admin: 03/27/19 09:55 Dose: 100 mls/hr Mesalamine (Asacol Hd -) 800 mg PO TID [facility] Last Admin: 03/27/19 15:00 Dose: 800 mg Oxycodone HCl (Roxicodone -) 10 mg PO Q6H PRN PRN Reason: PAIN SCALE 6-10 Last Admin: 03/27/19 15:14 Dose: 10 mg Pantoprazole Sodium (Protonix -) 40 mg PO BID [facility] Last Admin: 03/27/19 09:55 Dose: 40 mg Warfarin Sodium (Coumadin -) 4 mg PO DAILY@1800 [facility] Last Admin: 03/26/19 21:35 Dose: 4 mg - Objective Vital Signs: Vital Signs Temperature 99.6 F 03/27/19 14:00 Pulse Rate 126 H 03/27/19 14:00 Respiratory Rate 18 03/27/19 14:00 Blood Pressure 109/64 03/27/19 14:00 O2 Sat by Pulse Oximetry (%) 100 03/27/19 09:00 Constitutional: Yes: No Distress HENT: Yes: Atraumatic Neck: Yes: Supple Cardiovascular: Yes: Regular Rate and Rhythm Respiratory: Yes: CTA Bilaterally Gastrointestinal: Yes: Normal Bowel Sounds Extremities: Yes: WNL Edema: No Peripheral Pulses WNL: Yes Neurological: Yes: Alert, Oriented Labs: CBC, BMP 03/25/19 09:30 03/25/19 09:30 INR, PTT INR 1.38 (0.83-1.09) H 03/26/19 17:40 Problem List - Problems (1) Anemia Assessment/Plan: s/p blood transfusion h/h stable Code(s): D64.9 - ANEMIA, UNSPECIFIED (2) Leukocytosis Code(s): D72.829 - ELEVATED WHITE BLOOD CELL COUNT, UNSPECIFIED (3) Supratherapeutic INR Code(s): R79.1 - ABNORMAL COAGULATION PROFILE (4) Wound of lower extremity Assessment/Plan: iv abx id and vascular consult woundcare dressing change Code(s): S81.809A - UNSPECIFIED OPEN WOUND, UNSPECIFIED LOWER LEG, INIT ENCNTR
[2019-03-27 18:39] LABS: INR 1.28 (0.83-1.09); PROTHROMBIN TIME (PATIENT) 15.2 SEC (9.7-13.0)
[2019-03-27] MEDS: WARFARIN NA 2 MG TABLET (UD) PO SCH (18:46)
[2019-03-28] MEDS ORDERED: PIPERACILLIN/TAZOBACTAM 3.375 GM VIAL IVPB ONE ×3 (01:10→17:27)
[2019-03-28] MEDS ORDERED: DEXTROSE 5%-WATER - 50 ML IVPB ONE ×3 (01:10→17:27)
[2019-03-28] MEDS: PIPERACILLIN/TAZOB 3.375 GM 3.375 GM in DEXTROSE 5%-WATER - 50 ML IVPB SCH ×3 (01:23→17:53)
[2019-03-28] MEDS: oxyCODONE HCL 5 MG TABLET PO PRN ×5 (04:20→22:12)
[2019-03-28] MEDS: MESALAMINE 800 MG TABLET.DR PO SCH ×3 (05:33→22:11)
[2019-03-28] MEDS: PANTOPRAZOLE 40 MG TABLET (FP) PO SCH ×2 (09:13→22:11)
[2019-03-28] MEDS: FUROSEMIDE 40 MG TABLET (FP) PO SCH (09:14)
--- NOTE | 2019-03-28 13:21 | PN ---
Progress Note, Physician History of Present Illness: stable - Current Medication List Current Medications: Active Medications Acetaminophen (Tylenol -) 650 mg PO Q6H PRN PRN Reason: FEVER Last Admin: 03/27/19 12:42 Dose: 650 mg Furosemide (Lasix -) 40 mg PO DAILY [facility] [place] Last Admin: 03/28/19 09:14 Dose: 40 mg Piperacillin Sod/Tazobactam (Sod 3.375 gm/ Dextrose) 50 mls @ 100 mls/hr IVPB Q8H-IV [facility]; Protocol Last Admin: 03/28/19 09:14 Dose: 100 mls/hr Mesalamine (Asacol Hd -) 800 mg PO TID [facility] Last Admin: 03/28/19 05:33 Dose: 800 mg Oxycodone HCl (Roxicodone -) 10 mg PO Q4H PRN PRN Reason: PAIN SCALE 6-10 Last Admin: 03/28/19 09:12 Dose: 10 mg Pantoprazole Sodium (Protonix -) 40 mg PO BID [facility] [place] Last Admin: 03/28/19 09:13 Dose: 40 mg Warfarin Sodium (Coumadin -) 4 mg PO DAILY@1800 [facility] Last Admin: 03/27/19 18:46 Dose: 4 mg - Objective Vital Signs: Vital Signs Temperature 98.8 F 03/28/19 09:14 Pulse Rate 105 H 03/28/19 09:14 Respiratory Rate 22 H 03/28/19 09:14 Blood Pressure 112/72 03/28/19 09:14 O2 Sat by Pulse Oximetry (%) 99 03/28/19 09:00 Constitutional: Yes: No Distress HENT: Yes: Atraumatic Neck: Yes: Supple Cardiovascular: Yes: Regular Rate and Rhythm Respiratory: Yes: CTA Bilaterally Gastrointestinal: Yes: Normal Bowel Sounds Extremities: Yes: Other (left foot cellulitis) Edema: Yes Edema: LLE: 3+ Peripheral Pulses WNL: Yes Neurological: Yes: Alert, Oriented Labs: CBC, BMP 03/25/19 09:30 03/25/19 09:30 INR, PTT INR 1.28 (0.83-1.09) H 03/27/19 18:00 Problem List - Problems (1) Anemia Assessment/Plan: s/p blood transfusion h/h stable Code(s): D64.9 - ANEMIA, UNSPECIFIED (2) Leukocytosis Code(s): D72.829 - ELEVATED WHITE BLOOD CELL COUNT, UNSPECIFIED (3) Supratherapeutic INR Code(s): R79.1 - ABNORMAL COAGULATION PROFILE (4) Wound of lower extremity Assessment/Plan: iv abx id and vascular consult woundcare dressing change Code(s): S81.809A - UNSPECIFIED OPEN WOUND, UNSPECIFIED LOWER LEG, INIT ENCNTR
--- NOTE | 2019-03-28 14:19 | PN ---
Progress Note, Physician History of Present Illness: stable no new issues dressing present still leaking - Current Medication List Current Medications: Active Medications Acetaminophen (Tylenol -) 650 mg PO Q6H PRN PRN Reason: FEVER Last Admin: 03/27/19 12:42 Dose: 650 mg Furosemide (Lasix -) 40 mg PO DAILY [facility] Last Admin: 03/28/19 09:14 Dose: 40 mg Piperacillin Sod/Tazobactam (Sod 3.375 gm/ Dextrose) 50 mls @ 100 mls/hr IVPB Q8H-IV [facility]; Protocol Last Admin: 03/28/19 09:14 Dose: 100 mls/hr Mesalamine (Asacol Hd -) 800 mg PO TID [facility] Last Admin: 03/28/19 13:27 Dose: 800 mg Oxycodone HCl (Roxicodone -) 10 mg PO Q4H PRN PRN Reason: PAIN SCALE 6-10 Last Admin: 03/28/19 13:26 Dose: 10 mg Pantoprazole Sodium (Protonix -) 40 mg PO BID [facility] Last Admin: 03/28/19 09:13 Dose: 40 mg Warfarin Sodium (Coumadin -) 4 mg PO DAILY@1800 [facility] Last Admin: 03/27/19 18:46 Dose: 4 mg - Objective Vital Signs: Vital Signs Temperature 98.8 F 03/28/19 09:14 Pulse Rate 105 H 03/28/19 09:14 Respiratory Rate 22 H 03/28/19 09:14 Blood Pressure 112/72 03/28/19 09:14 O2 Sat by Pulse Oximetry (%) 99 03/28/19 09:00 Constitutional: Yes: No Distress, Calm Cardiovascular: Yes: Regular Rate and Rhythm Respiratory: Yes: Regular, CTA Bilaterally Gastrointestinal: Yes: Normal Bowel Sounds, Soft Musculoskeletal: Yes: WNL Extremities: Yes: Other Wound/Incision: Yes: Dressing Dry and Intact Neurological: Yes: Alert, Oriented Psychiatric: Yes: Alert, Oriented Labs: CBC, BMP 03/25/19 09:30 03/25/19 09:30 INR, PTT INR 1.28 (0.83-1.09) H 03/27/19 18:00 Assessment/Plan Problem List - Problems (1) Anemia Code(s): D64.9 - ANEMIA, UNSPECIFIED (2) Leukocytosis Code(s): D72.829 - ELEVATED WHITE BLOOD CELL COUNT, UNSPECIFIED (3) Supratherapeutic INR Code(s): R79.1 - ABNORMAL COAGULATION PROFILE (4) Wound of lower extremity Code(s): S81.809A - UNSPECIFIED OPEN WOUND, UNSPECIFIED LOWER LEG, INIT ENCNTR plan abx wound care plastics rest as per the team cx reports final plan has to be made
[2019-03-28] MEDS: ACETAMINOPHEN 325 MG TABLET (FP) PO PRN (16:25)
[2019-03-28 19:35] LABS: BASO % 0.6 % (0-2.0); EOS % 1.8 % (0-4.5); HEMATOCRIT 29.7 % (32.4-45.2); HEMOGLOBIN 9.5 GM/dL (10.7-15.3); LYMPH % 13.8 % (8-40); MCH 24.8 pg (25.7-33.7); MCHC 31.9 g/dl (32.0-36.0); MEAN CELL VOLUME 77.8 fl (80-96); MEAN PLT VOLUME 7.5 fl (7.5-11.1); MONO % 6.8 % (3.8-10.2); PLATELET COUNT 807 K/MM3 (134-434); RBC 3.82 M/mm3 (3.60-5.2); RDW 21.2 % (11.6-15.6); WHITE BLOOD COUNT 12.9 K/mm3 (4.0-10.0)
[2019-03-28 19:52] LABS: INR 1.39 (0.83-1.09); PROTHROMBIN TIME (PATIENT) 16.5 SEC (9.7-13.0)
[2019-03-28 20:02] LABS: ALBUMIN 2.3 g/dl (3.4-5.0); BILIRUBIN,TOTAL 0.3 mg/dL (0.2-1); BLOOD UREA NITROGEN 12.9 mg/dL (7-18); CALCIUM 8.2 mg/dL (8.5-10.1); CREATININE 1.2 mg/dL (0.55-1.3); POTASSIUM 3.6 mmol/L (3.5-5.1); TOT PROT 6.9 g/dl (6.4-8.2)
[2019-03-28] MEDS: WARFARIN NA 2 MG TABLET (UD) PO SCH (20:21)
[2019-03-28 23:10] LABS: ANISOCYTOSIS 1+; PLATELET ESTIMATE INCREASED
[2019-03-29] MEDS ORDERED: PIPERACILLIN/TAZOBACTAM 3.375 GM VIAL IVPB ONE ×3 (02:06→17:53)
[2019-03-29] MEDS ORDERED: DEXTROSE 5%-WATER - 50 ML IVPB ONE ×3 (02:06→17:53)
[2019-03-29] MEDS: oxyCODONE HCL 5 MG TABLET PO PRN ×5 (02:12→21:46)
[2019-03-29] MEDS: PIPERACILLIN/TAZOB 3.375 GM 3.375 GM in DEXTROSE 5%-WATER - 50 ML IVPB SCH ×3 (02:12→18:00)
[2019-03-29] MEDS: MESALAMINE 800 MG TABLET.DR PO SCH ×3 (06:32→21:45)
[2019-03-29 08:00] LABS: INR 1.49 (0.83-1.09); PROTHROMBIN TIME (PATIENT) 17.7 SEC (9.7-13.0)
[2019-03-29] MEDS ORDERED: oxyCODONE HCL 5 MG TABLET PO ONE (09:30)
[2019-03-29] MEDS: PANTOPRAZOLE 40 MG TABLET (FP) PO SCH ×2 (09:40→21:45)
[2019-03-29] MEDS: FUROSEMIDE 40 MG TABLET (FP) PO SCH (09:41)
[2019-03-29] MEDS ORDERED: fentaNYL 25mcg/hr PATCH.TD72 TD SCH (12:15)
--- NOTE | 2019-03-29 13:35 | PN ---
Progress Note, Physician History of Present Illness: stable - Current Medication List Current Medications: Active Medications Furosemide (Lasix -) 40 mg PO DAILY [facility] Last Admin: 03/29/19 09:41 Dose: Not Given Piperacillin Sod/Tazobactam (Sod 3.375 gm/ Dextrose) 50 mls @ 100 mls/hr IVPB Q8H-IV [facility]; Protocol Last Admin: 03/29/19 09:45 Dose: 100 mls/hr Mesalamine (Asacol Hd -) 800 mg PO TID [facility] Last Admin: 03/29/19 06:32 Dose: 800 mg Oxycodone HCl (Roxicodone -) 10 mg PO Q3H PRN PRN Reason: PAIN SCALE 6-10 Last Admin: 03/29/19 12:49 Dose: 10 mg Pantoprazole Sodium (Protonix -) 40 mg PO BID [facility] Last Admin: 03/29/19 09:40 Dose: 40 mg Warfarin Sodium (Coumadin -) 4 mg PO DAILY@1800 [facility] Last Admin: 03/28/19 20:21 Dose: 4 mg - Objective Vital Signs: Vital Signs Temperature 98.1 F 03/29/19 06:00 Pulse Rate 104 H 03/29/19 11:01 Respiratory Rate 20 03/29/19 11:01 Blood Pressure 102/59 L 03/29/19 11:01 O2 Sat by Pulse Oximetry (%) 99 03/28/19 21:00 Constitutional: Yes: No Distress HENT: Yes: Atraumatic Neck: Yes: Supple Cardiovascular: Yes: Regular Rate and Rhythm Respiratory: Yes: CTA Bilaterally Gastrointestinal: Yes: Normal Bowel Sounds Extremities: Yes: Other (left foot cellulitis) Edema: Yes Edema: LLE: 3+ (left foot) Neurological: Yes: Alert, Oriented Labs: CBC, BMP 03/28/19 19:00 03/28/19 19:00 INR, PTT INR 1.49 (0.83-1.09) H 03/29/19 06:00 Problem List - Problems (1) Anemia Assessment/Plan: s/p blood transfusion h/h stable Code(s): D64.9 - ANEMIA, UNSPECIFIED (2) Leukocytosis Code(s): D72.829 - ELEVATED WHITE BLOOD CELL COUNT, UNSPECIFIED (3) Supratherapeutic INR Code(s): R79.1 - ABNORMAL COAGULATION PROFILE (4) Wound of lower extremity Assessment/Plan: iv abx id and vascular consult woundcare dressing change Code(s): S81.809A - UNSPECIFIED OPEN WOUND, UNSPECIFIED LOWER LEG, INIT ENCNTR
--- NOTE | 2019-03-29 13:59 | PN ---
Progress Note, Physician - Current Medication List Current Medications: Active Medications Acetaminophen (Tylenol -) 650 mg PO Q6H PRN PRN Reason: PAIN Furosemide (Lasix -) 40 mg PO DAILY [facility] Last Admin: 03/29/19 09:41 Dose: Not Given Piperacillin Sod/Tazobactam (Sod 3.375 gm/ Dextrose) 50 mls @ 100 mls/hr IVPB Q8H-IV [facility]; Protocol Last Admin: 03/29/19 09:45 Dose: 100 mls/hr Mesalamine (Asacol Hd -) 800 mg PO TID [facility] Last Admin: 03/29/19 06:32 Dose: 800 mg Oxycodone HCl (Roxicodone -) 10 mg PO Q3H PRN PRN Reason: PAIN SCALE 6-10 Last Admin: 03/29/19 12:49 Dose: 10 mg Pantoprazole Sodium (Protonix -) 40 mg PO BID [facility] Last Admin: 03/29/19 09:40 Dose: 40 mg Warfarin Sodium (Coumadin -) 4 mg PO DAILY@1800 [facility] Last Admin: 03/28/19 20:21 Dose: 4 mg - Objective Vital Signs: Vital Signs Temperature 98.1 F 03/29/19 06:00 Pulse Rate 104 H 03/29/19 11:01 Respiratory Rate 20 03/29/19 11:01 Blood Pressure 102/59 L 03/29/19 11:01 O2 Sat by Pulse Oximetry (%) 99 03/28/19 21:00 Labs: CBC, BMP 03/28/19 19:00 03/28/19 19:00 INR, PTT INR 1.49 (0.83-1.09) H 03/29/19 06:00 <Agustín Sheldon - Last Filed: 03/29/19 13:59> History of Present Illness: The patient is a 48 year old female, with a significant past medical history of anemia, ulcerative colitis, DVT/PE, and Afib (on Coumadin), who presents to the emergency department with, blt nontraumatic upper and lower extremity bruising and LLE ulcer with increased pain. She denies recent chest pain or shortness of breath. Allergies: NKDA - Current Medication List Current Medications: Active Medications Acetaminophen (Tylenol -) 650 mg PO Q6H PRN PRN Reason: PAIN Last Admin: 03/29/19 14:59 Dose: 650 mg Furosemide (Lasix -) 40 mg PO DAILY [facility] Last Admin: 03/29/19 09:41 Dose: Not Given Piperacillin Sod/Tazobactam (Sod 3.375 gm/ Dextrose) 50 mls @ 100 mls/hr IVPB Q8H-IV [facility]; Protocol Last Admin: 03/29/19 09:45 Dose: 100 mls/hr Mesalamine (Asacol Hd -) 800 mg PO TID [facility] Last Admin: 03/29/19 14:52 Dose: 800 mg Oxycodone HCl (Roxicodone -) 10 mg PO Q3H PRN PRN Reason: PAIN SCALE 6-10 Last Admin: 03/29/19 17:03 Dose: 10 mg Pantoprazole Sodium (Protonix -) 40 mg PO BID [facility] Last Admin: 03/29/19 09:40 Dose: 40 mg Warfarin Sodium (Coumadin -) 4 mg PO DAILY@1800 [facility] Last Admin: 03/28/19 20:21 Dose: 4 mg - Objective Vital Signs: Vital Signs Temperature 98.9 F 03/29/19 14:58 Pulse Rate 118 H 03/29/19 14:58 Respiratory Rate 20 03/29/19 14:58 Blood Pressure 105/64 03/29/19 14:58 O2 Sat by Pulse Oximetry (%) 99 03/28/19 21:00 Labs: CBC, BMP 03/28/19 19:00 03/28/19 19:00 INR, PTT INR 1.49 (0.83-1.09) H 03/29/19 06:00 <Colton Nixon - Last Filed: 03/29/19 17:31>
[2019-03-29] MEDS: ACETAMINOPHEN 325 MG TABLET (FP) PO PRN (14:59)
--- NOTE | 2019-03-29 17:22 | CON.CARD ---
Consult Consult Specialty:: cardiology Reason for Consultation:: tachycardia - History of Present Illness Chief Complaint: PT A&Ox3; easily SOB; moderate pain in left LE. History of Present Illness: The patient is a 48 year old female (b. [place]), with a significant past medical history of anemia, ulcerative colitis, obesity, sedentary lifestyle, DVT/PE, and Afib (on Coumadin), who presents to the emergency department with, bilateral nontraumatic upper and lower extremity bruising and LLE ulcer with increased pain. She denies recent chest pain or shortness of breath. Allergies: NKDA - History Source History Provided By: Patient, Medical Record Limitations to Obtaining History: No Limitations - Past Medical History Cardio/Vascular: Yes: HTN Pulmonary: Yes: Pulmonary Embolus ...LMP: 11/06/11 Heme/Onc: Yes: Anemia Psych: Yes: Anxiety - Alcohol/Substance Use Hx Alcohol Use: No - Smoking History Smoking history: Never smoked Have you smoked in the past 12 months: No Aproximately how many cigarettes per day: 0 If you are a former smoker, when did you quit?: stopped 5 yrs ago Home Medications - Allergies Allergies/Adverse Reactions: Allergies Allergy/AdvReac Type Severity Reaction Status Date / Time No Known Allergies Allergy Verified 03/24/19 12:16 - Home Medications Home Medications: Ambulatory Orders Ferrous Sulfate Liquid [Feosol Liquid] 300 mg PO TID 09/11/12 Furosemide [Lasix -] 40 mg PO HS 09/11/12 Mesalamine [Asacol -] 800 mg PO TID 09/11/12 Multivitamin [Multivitamins] 1 each PO DAILY 09/11/12 Warfarin Sodium [Coumadin] 4 mg PO HS 09/11/12 Amox-Tr/K Cl [Augmentin] 1 each PO BID #14 tablet 09/19/12 Oxycodone HCl/Acetaminophen [Percocet 5-325 mg Tablet] 1 - 2 tab PO Q6H PRN #0 tablet 09/19/12 Pantoprazole Sodium [Protonix -] 40 mg PO BID #0 tablet.ec 09/19/12 Review of Systems - Review of Systems Constitutional: reports: No Symptoms Eyes: reports: No Symptoms HENT: reports: No Symptoms Neck: reports: No Symptoms Cardiovascular: denies: Chest Pain Respiratory: denies: SOB Gastrointestinal: reports: No Symptoms Genitourinary: reports: No Symptoms Breasts: reports: No Symptoms Reported Musculoskeletal: reports: Muscle Weakness Integumentary: reports: Bruising Neurological: reports: No Symptoms Endocrine: reports: No Symptoms Hematology/Lymphatic: reports: Easily Bruised Psychiatric: reports: Anxiety - Risk Factors Known Risk Factors: Yes: Hypertension, Physical Inactivity, Other (overweight; sedentary) Vital Signs: Vital Signs Temperature 98.9 F 03/29/19 14:58 Pulse Rate 118 H 03/29/19 14:58 Respiratory Rate 20 03/29/19 14:58 Blood Pressure 105/64 03/29/19 14:58 O2 Sat by Pulse Oximetry (%) 99 03/28/19 21:00 Constitutional: Yes: Anxious Eyes: Yes: WNL HENT: Yes: WNL Neck: Yes: WNL Respiratory: Yes: WNL Gastrointestinal: Yes: Soft, Abdomen, Obese Renal/: No: Anuria Cardiovascular: Yes: Tachycardia JVD: No Carotid Bruit: No PMI: Displaced Heart Sounds: Yes: S1, S2 Murmur: Yes: Systolic Murmur, Grade 2 Musculoskeletal: Yes: Muscle Weakness Extremities: Yes: Cool Edema: No Peripheral Pulses WNL: Yes Integumentary: Yes: Bruising Neurological: Yes: Alert, Oriented Psychiatric: Yes: Other - Other Data Labs, Other Data: CBC, BMP 03/28/19 19:00 03/28/19 19:00 INR, PTT INR 1.49 (0.83-1.09) H 03/29/19 06:00 Abnormal Lab Results 03/30/19 03/30/19 03/30/19 07:37 07:37 07:37 RBC 3.32 L Hgb 8.3 L Hct 25.7 L MCV 77.5 L MCH 24.9 L RDW 21.2 H Plt Count 643 H D MPV 7.3 L PT with INR 19.80 H INR 1.67 H Potassium 3.1 L Anion Gap 7 L Random Glucose 125 H Calcium 8.2 L Alkaline Phosphatase 322 H Total Protein 6.0 L Albumin 2.1 L Triglycerides 189 H Ejection Fraction %: LVEF < 40 % Imaging - Results Chest X-ray: Image Reviewed EKG: Image Reviewed (sinus tachycardia) Problem List - Problems (1) Obesity Code(s): E66.9 - OBESITY, UNSPECIFIED (2) Pain Code(s): R52 - PAIN, UNSPECIFIED (3) Ulcerative colitis Code(s): K51.90 - ULCERATIVE COLITIS, UNSPECIFIED, WITHOUT COMPLICATIONS (4) Pulmonary embolism Assessment/Plan: On warfarin (for PE and AF). Give IV heaprin or sc Lovenox until INR 2-3 Consider change to DOAC if pt has trouble maintainng INR in therapeutic range ( this is if DOAC is considered effective, given her many medical problems) Code(s): I26.99 - OTHER PULMONARY EMBOLISM WITHOUT ACUTE COR PULMONALE (5) Atrial fibrillation Assessment/Plan: On warfarin for anticoagulation. Would recommend metoprolol or carvedilol if needed for HR control (AF; cardiomyopathy). Code(s): I48.91 - UNSPECIFIED ATRIAL FIBRILLATION (7) Anxiety and depression Code(s): F41.9 - ANXIETY DISORDER, UNSPECIFIED; F32.9 - MAJOR DEPRESSIVE DISORDER, SINGLE EPISODE, UNSPECIFIED (8) Sedentary lifestyle Code(s): Z91.89 - OTH PERSONAL RISK FACTORS, NOT ELSEWHERE CLASSIFIED (9) Anemia Code(s): D64.9 - ANEMIA, UNSPECIFIED (10) Leukocytosis Code(s): D72.829 - ELEVATED WHITE BLOOD CELL COUNT, UNSPECIFIED (11) Supratherapeutic INR Code(s): R79.1 - ABNORMAL COAGULATION PROFILE (12) Wound of left lower extremity Code(s): S81.802A - UNSPECIFIED OPEN WOUND, LEFT LOWER LEG, INITIAL ENCOUNTER (13) Sinus tachycardia Assessment/Plan: Multiple contributers to pt's tachycardia, including lito, PE/tachypnea, anemia, anxiety/depression, infection, dehydration. Will discontinue furosemid (no JVD; no clear signs of CHF on CXR). Code(s): R00.0 - TACHYCARDIA, UNSPECIFIED
[2019-03-29] MEDS: WARFARIN NA 2 MG TABLET (UD) PO SCH (18:00)
[2019-03-29] MEDS ORDERED: diphenhydrAMINE HCL 25 MG CAPSULE (FP) PO ONE (23:15)
[2019-03-30] MEDS ORDERED: PIPERACILLIN/TAZOBACTAM 3.375 GM VIAL IVPB ONE ×3 (01:11→16:55)
[2019-03-30] MEDS ORDERED: DEXTROSE 5%-WATER - 50 ML IVPB ONE ×3 (01:12→16:55)
[2019-03-30] MEDS: oxyCODONE HCL 5 MG TABLET PO PRN ×6 (01:35→23:37)
[2019-03-30] MEDS: PIPERACILLIN/TAZOB 3.375 GM 3.375 GM in DEXTROSE 5%-WATER - 50 ML IVPB SCH ×3 (01:37→17:02)
[2019-03-30] MEDS: ACETAMINOPHEN 325 MG TABLET (FP) PO PRN ×2 (03:03→22:48)
[2019-03-30] MEDS: MESALAMINE 800 MG TABLET.DR PO SCH ×3 (05:41→22:48)
[2019-03-30 08:23] LABS: BASO % 0.9 % (0-2.0); EOS % 2.6 % (0-4.5); HEMATOCRIT 25.7 % (32.4-45.2); HEMOGLOBIN 8.3 GM/dL (10.7-15.3); INR 1.67 (0.83-1.09); LYMPH % 19.2 % (8-40); MCH 24.9 pg (25.7-33.7); MCHC 32.1 g/dl (32.0-36.0); MEAN CELL VOLUME 77.5 fl (80-96); MEAN PLT VOLUME 7.3 fl (7.5-11.1); MONO % 8.3 % (3.8-10.2); PROTHROMBIN TIME (PATIENT) 19.8 SEC (9.7-13.0); RBC 3.32 M/mm3 (3.60-5.2); RDW 21.2 % (11.6-15.6); WHITE BLOOD COUNT 8.2 K/mm3 (4.0-10.0)
[2019-03-30 08:46] LABS: ALBUMIN 2.1 g/dl (3.4-5.0); BILIRUBIN,TOTAL 0.3 mg/dL (0.2-1); BLOOD UREA NITROGEN 9.8 mg/dL (7-18); CALCIUM 8.2 mg/dL (8.5-10.1); CREATININE 0.7 mg/dL (0.55-1.3); POTASSIUM 3.1 mmol/L (3.5-5.1)
[2019-03-30 09:18] LABS: PLATELET COUNT 643 K/MM3 (134-434)
[2019-03-30] MEDS: PANTOPRAZOLE 40 MG TABLET (FP) PO SCH ×2 (10:11→22:47)
--- NOTE | 2019-03-30 12:22 | PN ---
Progress Note, Physician History of Present Illness: stable - Current Medication List Current Medications: Active Medications Acetaminophen (Tylenol -) 650 mg PO Q6H PRN PRN Reason: PAIN Last Admin: 03/30/19 03:03 Dose: 650 mg Piperacillin Sod/Tazobactam (Sod 3.375 gm/ Dextrose) 50 mls @ 100 mls/hr IVPB Q8H-IV [facility]; Protocol Last Admin: 03/30/19 10:11 Dose: 100 mls/hr Mesalamine (Asacol Hd -) 800 mg PO TID [facility] Last Admin: 03/30/19 05:41 Dose: 800 mg Oxycodone HCl (Roxicodone -) 10 mg PO Q3H PRN PRN Reason: PAIN SCALE 6-10 Last Admin: 03/30/19 10:04 Dose: 10 mg Pantoprazole Sodium (Protonix -) 40 mg PO BID [facility] Last Admin: 03/30/19 10:11 Dose: 40 mg Warfarin Sodium (Coumadin -) 4 mg PO DAILY@1800 [facility] Last Admin: 03/29/19 18:00 Dose: 4 mg - Objective Vital Signs: Vital Signs Temperature 98.5 F 03/30/19 05:38 Pulse Rate 98 H 03/30/19 05:38 Respiratory Rate 20 03/30/19 05:38 Blood Pressure 98/62 03/30/19 05:38 O2 Sat by Pulse Oximetry (%) 96 03/29/19 10:00 Constitutional: Yes: No Distress HENT: Yes: Atraumatic Neck: Yes: Supple Cardiovascular: Yes: Regular Rate and Rhythm Respiratory: Yes: CTA Bilaterally Gastrointestinal: Yes: Normal Bowel Sounds Extremities: Yes: Other (llex cellulitis) Neurological: Yes: Alert, Oriented Labs: CBC, BMP 03/30/19 07:37 03/30/19 07:37 INR, PTT INR 1.67 (0.83-1.09) H 03/30/19 07:37 Problem List - Problems (1) Anemia Assessment/Plan: s/p blood transfusion h/h stable Code(s): D64.9 - ANEMIA, UNSPECIFIED (2) Leukocytosis Code(s): D72.829 - ELEVATED WHITE BLOOD CELL COUNT, UNSPECIFIED (3) Supratherapeutic INR Assessment/Plan: on coumadin now monitor Code(s): R79.1 - ABNORMAL COAGULATION PROFILE (4) Wound of lower extremity Assessment/Plan: iv abx id and vascular consult woundcare dressing change Code(s): S81.809A - UNSPECIFIED OPEN WOUND, UNSPECIFIED LOWER LEG, INIT ENCNTR
--- NOTE | 2019-03-30 13:06 | PN ---
Progress Note, Physician History of Present Illness: stable no new issues - Current Medication List Current Medications: Active Medications Acetaminophen (Tylenol -) 650 mg PO Q6H PRN PRN Reason: PAIN Last Admin: 03/30/19 03:03 Dose: 650 mg Piperacillin Sod/Tazobactam (Sod 3.375 gm/ Dextrose) 50 mls @ 100 mls/hr IVPB Q8H-IV [facility]LE[facility]; Protocol Last Admin: 03/30/19 10:11 Dose: 100 mls/hr Mesalamine (Asacol Hd -) 800 mg PO TID [facility] Last Admin: 03/30/19 05:41 Dose: 800 mg Oxycodone HCl (Roxicodone -) 10 mg PO Q3H PRN PRN Reason: PAIN SCALE 6-10 Last Admin: 03/30/19 10:04 Dose: 10 mg Pantoprazole Sodium (Protonix -) 40 mg PO BID [facility] Last Admin: 03/30/19 10:11 Dose: 40 mg Warfarin Sodium (Coumadin -) 4 mg PO DAILY@1800 [facility] Last Admin: 03/29/19 18:00 Dose: 4 mg - Objective Vital Signs: Vital Signs Temperature 98.7 F 03/30/19 12:57 Pulse Rate 108 H 03/30/19 12:57 Respiratory Rate 20 03/30/19 12:57 Blood Pressure 105/69 03/30/19 12:57 O2 Sat by Pulse Oximetry (%) 96 03/29/19 10:00 Constitutional: Yes: No Distress, Calm Cardiovascular: Yes: Regular Rate and Rhythm Respiratory: Yes: Regular, CTA Bilaterally Gastrointestinal: Yes: Normal Bowel Sounds, Soft Musculoskeletal: Yes: WNL Extremities: Yes: Other Wound/Incision: Yes: Dressing Dry and Intact Neurological: Yes: Alert, Oriented Psychiatric: Yes: Alert, Oriented Labs: CBC, BMP 03/30/19 07:37 03/30/19 07:37 INR, PTT INR 1.67 (0.83-1.09) H 03/30/19 07:37 Assessment/Plan Problem List - Problems (1) Anemia Code(s): D64.9 - ANEMIA, UNSPECIFIED (2) Leukocytosis Code(s): D72.829 - ELEVATED WHITE BLOOD CELL COUNT, UNSPECIFIED (3) Supratherapeutic INR Code(s): R79.1 - ABNORMAL COAGULATION PROFILE (4) Wound of lower extremity Code(s): S81.809A - UNSPECIFIED OPEN WOUND, UNSPECIFIED LOWER LEG, INIT ENCNTR plan abx wound care plastics rest as per the team cx reports final plan has to be made
[2019-03-30] MEDS: WARFARIN NA 2 MG TABLET (UD) PO SCH (17:02)
--- NOTE | 2019-03-30 21:29 | PN ---
Progress Note, Physician Chief Complaint: Pt A&Ox3; c/o pain in LLE. History of Present Illness: The patient is a 48 year old female ([place]), with a significant past medical history of anemia, ulcerative colitis, obesity, sedentary lifestyle, DVT/PE, and Afib (on Coumadin), who presents to the emergency department with, bilateral nontraumatic upper and lower extremity bruising and LLE ulcer with increased pain. She denies recent chest pain or shortness of breath. Allergies: NKDA - Current Medication List Current Medications: Active Medications Acetaminophen (Tylenol -) 650 mg PO Q6H PRN PRN Reason: PAIN Last Admin: 03/30/19 03:03 Dose: 650 mg Diphenhydramine HCl (Benadryl -) 25 mg PO HS PRN PRN Reason: INSOMNIA Piperacillin Sod/Tazobactam (Sod 3.375 gm/ Dextrose) 50 mls @ 100 mls/hr IVPB Q8H-IV [facility]LE[facility]; Protocol Last Admin: 03/30/19 17:02 Dose: 100 mls/hr Mesalamine (Asacol Hd -) 800 mg PO TID [facility] Last Admin: 03/30/19 13:07 Dose: 800 mg Morphine Sulfate (Morphine Sulfate) 2 mg IVPUSH Q24H PRN PRN Reason: PAIN LEVEL 4 - 6 Oxycodone HCl (Roxicodone -) 10 mg PO Q3H PRN PRN Reason: PAIN SCALE 6-10 Last Admin: 03/30/19 16:58 Dose: 10 mg Pantoprazole Sodium (Protonix -) 40 mg PO BID [facility] Last Admin: 03/30/19 10:11 Dose: 40 mg Potassium Chloride (K-Dur -) 40 meq PO BID [facility] Warfarin Sodium (Coumadin -) 4 mg PO DAILY@1800 [facility] Last Admin: 03/30/19 17:02 Dose: 4 mg - Objective Vital Signs: Vital Signs Temperature 98.8 F 03/30/19 18:00 Pulse Rate 120 H 03/30/19 18:00 Respiratory Rate 20 03/30/19 18:00 Blood Pressure 103/58 L 03/30/19 18:00 O2 Sat by Pulse Oximetry (%) 96 03/29/19 10:00 Constitutional: Yes: Obese Eyes: Yes: WNL HENT: Yes: WNL Neck: Yes: WNL Cardiovascular: Yes: Tachycardia Respiratory: Yes: Regular Gastrointestinal: Yes: Soft, Abdomen, Obese ...Rectal Exam: Yes: Deferred Genitourinary: No: Anuria Breast(s): Yes: WNL Musculoskeletal: Yes: Joint Stiffness, Joint Swelling, Muscle Pain, Muscle Weakness Extremities: Yes: Cool Edema: Yes Edema: LUE: 2+ (foot and toes swollen) Peripheral Pulses WNL: No Peripheral Pulses: Left Doralis Pedis: 1+, Right Dorsalis Pedis: 2+ Integumentary: Yes: Venous Stasis Changes, Other Wound/Incision: Yes: Dressing Dry and Intact (LLE dressing foot-->near knee; toes edematous) Neurological: Yes: Alert, Oriented Psychiatric: Yes: Alert, Oriented Labs: CBC, BMP 03/30/19 07:37 03/30/19 07:37 INR, PTT INR 1.67 (0.83-1.09) H 03/30/19 07:37 Abnormal Lab Results 03/30/19 03/30/19 03/30/19 07:37 07:37 07:37 RBC 3.32 L Hgb 8.3 L Hct 25.7 L MCV 77.5 L MCH 24.9 L RDW 21.2 H Plt Count 643 H D MPV 7.3 L PT with INR 19.80 H INR 1.67 H Potassium 3.1 L Anion Gap 7 L Random Glucose 125 H Calcium 8.2 L Alkaline Phosphatase 322 H Total Protein 6.0 L Albumin 2.1 L Triglycerides 189 H Problem List - Problems (1) Obesity Code(s): E66.9 - OBESITY, UNSPECIFIED (2) Pain Code(s): R52 - PAIN, UNSPECIFIED (3) Ulcerative colitis Code(s): K51.90 - ULCERATIVE COLITIS, UNSPECIFIED, WITHOUT COMPLICATIONS (4) Pulmonary embolism Assessment/Plan: On warfarin (for PE and AF). Give IV heparin until INR 2-3. Consider change to DOAC if pt has trouble maintainng INR in therapeutic range ( this is if DOAC is considered effective, given her many medical problems) Code(s): I26.99 - OTHER PULMONARY EMBOLISM WITHOUT ACUTE COR PULMONALE (5) Atrial fibrillation Assessment/Plan: On warfarin for anticoagulation; start IV heparin until INR 2-3. Would recommend metoprolol or carvedilol if needed for HR control (AF; cardiomyopathy). Replete K, and keep 4-4.5 F/u magnesium level, and keep 2-2.4. Code(s): I48.91 - UNSPECIFIED ATRIAL FIBRILLATION (6) S/P IVC filter Assessment/Plan: filter in place (abominal CT). (7) Anxiety and depression Code(s): F41.9 - ANXIETY DISORDER, UNSPECIFIED; F32.9 - MAJOR DEPRESSIVE DISORDER, SINGLE EPISODE, UNSPECIFIED (8) Sedentary lifestyle Code(s): Z91.89 - [facility] PERSONAL RISK FACTORS, NOT ELSEWHERE CLASSIFIED (9) Anemia Code(s): D64.9 - ANEMIA, UNSPECIFIED (10) Leukocytosis Code(s): D72.829 - ELEVATED WHITE BLOOD CELL COUNT, UNSPECIFIED (11) Supratherapeutic INR Assessment/Plan: on IV heparin, warfarin. Code(s): R79.1 - ABNORMAL COAGULATION PROFILE (12) Wound of left lower extremity Code(s): S81.802A - UNSPECIFIED OPEN WOUND, LEFT LOWER LEG, INITIAL ENCOUNTER (13) Sinus tachycardia Assessment/Plan: Multiple contributors to pt's tachycardia, including pain, PE/tachypnea, anemia , anxiety/depression, infection, dehydration. Discontinued furosemide (no JVD; no clear signs of CHF on CXR). On warfarin for PE, AF. Code(s): R00.0 - TACHYCARDIA, UNSPECIFIED
[2019-03-30] MEDS ORDERED: ENOXAPARIN NA (PORCINE) 100 MG/1 ML DISP.SYRIN SQ SCH (22:00)
[2019-03-30] MEDS ORDERED: HEPARIN NA (PORCINE) 5,000 UNITS/ML 1ML VIAL SQ ONE (22:00)
[2019-03-30] MEDS: diphenhydrAMINE HCL 25 MG CAPSULE (FP) PO PRN (22:47)
[2019-03-30] MEDS: POTASSIUM CHLORIDE TABS 10 MEQ TABLET.ER (FP) PO SCH (22:55)
[2019-03-30] MEDS: HEPARIN SOD,PORK IN 0.45% NACL 25,000 UNITS/500 ML INFUS.BAG IVPB SCH (23:40)
[2019-03-31 02:15] LABS: MAGNESIUM 2.3 mg/dL (1.8-2.4)
[2019-03-31] MEDS ORDERED: DEXTROSE 5%-WATER - 50 ML IVPB ONE ×3 (02:50→17:27)
[2019-03-31] MEDS ORDERED: PIPERACILLIN/TAZOBACTAM 3.375 GM VIAL IVPB ONE ×3 (02:50→17:26)
[2019-03-31] MEDS: PIPERACILLIN/TAZOB 3.375 GM 3.375 GM in DEXTROSE 5%-WATER - 50 ML IVPB SCH ×3 (02:55→17:29)
[2019-03-31] MEDS: oxyCODONE HCL 5 MG TABLET PO PRN ×7 (02:55→23:47)
[2019-03-31] MEDS: MESALAMINE 800 MG TABLET.DR PO SCH ×3 (06:38→21:24)
[2019-03-31 07:06] LABS: BASO % 0.7 % (0-2.0); HEMATOCRIT 26.5 % (32.4-45.2); HEMOGLOBIN 8.6 GM/dL (10.7-15.3); LYMPH % 19.7 % (8-40); MCH 25.3 pg (25.7-33.7); MCHC 32.3 g/dl (32.0-36.0); MEAN CELL VOLUME 78.2 fl (80-96); MEAN PLT VOLUME 7.6 fl (7.5-11.1); MONO % 7.5 % (3.8-10.2); NEUT % 69.1 % (42.8-82.8); PLATELET COUNT 691 K/MM3 (134-434); RBC 3.39 M/mm3 (3.60-5.2); RDW 20.5 % (11.6-15.6); WHITE BLOOD COUNT 8.1 K/mm3 (4.0-10.0)
[2019-03-31 07:33] LABS: ALBUMIN 2.1 g/dl (3.4-5.0); BILIRUBIN,TOTAL 0.3 mg/dL (0.2-1); BLOOD UREA NITROGEN 10.8 mg/dL (7-18); CALCIUM 7.9 mg/dL (8.5-10.1); CREATININE 0.8 mg/dL (0.55-1.3); POTASSIUM 3.3 mmol/L (3.5-5.1); TOT PROT 6.2 g/dl (6.4-8.2)
[2019-03-31 07:42] LABS: INR 1.63 (0.83-1.09); PROTHROMBIN TIME (PATIENT) 19.3 SEC (9.7-13.0)
--- NOTE | 2019-03-31 09:39 | EKG ---
Test Reason : Blood Pressure : / mmHG Vent. Rate : 110 BPM Atrial Rate : 110 BPM P-R Int : 124 ms QRS Dur : 088 ms QT Int : 326 ms P-R-T Axes : 021 -05 -20 degrees QTc Int : 441 ms SINUS TACHYCARDIA OTHERWISE NORMAL ECG WHEN COMPARED WITH ECG OF 24-MAR-2019 21:12, NO SIGNIFICANT CHANGE WAS FOUND Confirmed by JESSICA MCALLISTER MD ([id number]) on 03/31/2019 9:38:23 AM Referred By: Confirmed By:JESSICA MCALLISTER MD
[2019-03-31] MEDS: POTASSIUM CHLORIDE TABS 10 MEQ TABLET.ER (FP) PO SCH ×2 (09:54→21:23)
[2019-03-31] MEDS: PANTOPRAZOLE 40 MG TABLET (FP) PO SCH ×2 (09:54→21:23)
[2019-03-31] MEDS: HEPARIN NA (PORCINE) 5,000 UNITS/ML 1ML VIAL IVPUSH PRN ×2 (10:10→17:53)
--- NOTE | 2019-03-31 10:35 | PN ---
Progress Note, Physician History of Present Illness: stable no new issues - Current Medication List Current Medications: Active Medications Acetaminophen (Tylenol -) 650 mg PO Q6H PRN PRN Reason: PAIN Last Admin: 03/30/19 22:48 Dose: 650 mg Diphenhydramine HCl (Benadryl -) 25 mg PO HS PRN PRN Reason: INSOMNIA Last Admin: 03/30/19 22:47 Dose: 25 mg Heparin Sodium (Porcine) (Heparin -) 1,000 unit IVPUSH PRN PRN PRN Reason: Heparin Last Admin: 03/31/19 10:10 Dose: 1,000 unit Piperacillin Sod/Tazobactam (Sod 3.375 gm/ Dextrose) 50 mls @ 100 mls/hr IVPB Q8H-IV [facility]; Protocol Last Admin: 03/31/19 09:55 Dose: 100 mls/hr HEPARIN SOD,PORK IN 0.45% NACL (Heparin-1/2ns 25,000 Units/500) 25,000 units in 500 mls @ 20 mls/hr IVPB TITR [facility]; Protocol Last Titration: 03/31/19 10:08 Dose: 1,100 units/hr, 22 mls/hr Mesalamine (Asacol Hd -) 800 mg PO TID [facility] Last Admin: 03/31/19 06:38 Dose: 800 mg Morphine Sulfate (Morphine Sulfate) 2 mg IVPUSH Q24H PRN PRN Reason: PAIN LEVEL 4 - 6 Oxycodone HCl (Roxicodone -) 10 mg PO Q3H PRN PRN Reason: PAIN SCALE 6-10 Last Admin: 03/31/19 10:04 Dose: 10 mg Pantoprazole Sodium (Protonix -) 40 mg PO BID [facility] Last Admin: 03/31/19 09:54 Dose: 40 mg Potassium Chloride (K-Dur -) 40 meq PO BID [facility] Last Admin: 03/31/19 09:54 Dose: 40 meq Warfarin Sodium (Coumadin -) 4 mg PO DAILY@1800 [facility] Last Admin: 03/30/19 17:02 Dose: 4 mg - Objective Vital Signs: Vital Signs Temperature 98.0 F 03/31/19 07:05 Pulse Rate 90 03/31/19 07:05 Respiratory Rate 18 03/31/19 07:05 Blood Pressure 111/70 03/31/19 07:05 O2 Sat by Pulse Oximetry (%) 98 03/30/19 21:00 Constitutional: Yes: No Distress, Calm Cardiovascular: Yes: Regular Rate and Rhythm Respiratory: Yes: Regular, CTA Bilaterally Gastrointestinal: Yes: Normal Bowel Sounds, Soft Musculoskeletal: Yes: WNL Extremities: Yes: Other Neurological: Yes: Alert, Oriented Psychiatric: Yes: Alert, Oriented Labs: CBC, BMP 03/31/19 05:45 03/31/19 05:45 INR, PTT INR 1.63 (0.83-1.09) H 03/31/19 05:45 Assessment/Plan Problem List - Problems (1) Anemia Code(s): D64.9 - ANEMIA, UNSPECIFIED (2) Leukocytosis Code(s): D72.829 - ELEVATED WHITE BLOOD CELL COUNT, UNSPECIFIED (3) Supratherapeutic INR Code(s): R79.1 - ABNORMAL COAGULATION PROFILE (4) Wound of lower extremity Code(s): S81.809A - UNSPECIFIED OPEN WOUND, UNSPECIFIED LOWER LEG, INIT ENCNTR plan abx wound care plastics rest as per the team cx reports final plan has to be made patient is going to need oysterman wound care
--- NOTE | 2019-03-31 11:19 | PN ---
Progress Note, Physician History of Present Illness: c/o left leg discomfort, denies chest pain or dyspnea. - Current Medication List Current Medications: Active Medications Acetaminophen (Tylenol -) 650 mg PO Q6H PRN PRN Reason: PAIN Last Admin: 03/30/19 22:48 Dose: 650 mg Diphenhydramine HCl (Benadryl -) 25 mg PO HS PRN PRN Reason: INSOMNIA Last Admin: 03/30/19 22:47 Dose: 25 mg Heparin Sodium (Porcine) (Heparin -) 1,000 unit IVPUSH PRN PRN PRN Reason: Heparin Last Admin: 03/31/19 10:10 Dose: 1,000 unit Piperacillin Sod/Tazobactam (Sod 3.375 gm/ Dextrose) 50 mls @ 100 mls/hr IVPB Q8H-IV [facility]; Protocol Last Admin: 03/31/19 09:55 Dose: 100 mls/hr HEPARIN SOD,PORK IN 0.45% NACL (Heparin-1/2ns 25,000 Units/500) 25,000 units in 500 mls @ 20 mls/hr IVPB TITR [facility]; Protocol Last Titration: 03/31/19 10:08 Dose: 1,100 units/hr, 22 mls/hr Mesalamine (Asacol Hd -) 800 mg PO TID [facility] Last Admin: 03/31/19 06:38 Dose: 800 mg Morphine Sulfate (Morphine Sulfate) 2 mg IVPUSH Q24H PRN PRN Reason: PAIN LEVEL 4 - 6 Oxycodone HCl (Roxicodone -) 10 mg PO Q3H PRN PRN Reason: PAIN SCALE 6-10 Last Admin: 03/31/19 10:04 Dose: 10 mg Pantoprazole Sodium (Protonix -) 40 mg PO BID [facility] Last Admin: 03/31/19 09:54 Dose: 40 mg Potassium Chloride (K-Dur -) 40 meq PO BID [facility] Last Admin: 03/31/19 09:54 Dose: 40 meq Warfarin Sodium (Coumadin -) 4 mg PO DAILY@1800 [facility] Last Admin: 03/30/19 17:02 Dose: 4 mg - Objective Vital Signs: Vital Signs Temperature 98.7 F 03/31/19 09:00 Pulse Rate 103 H 03/31/19 09:00 Respiratory Rate 18 03/31/19 09:00 Blood Pressure 143/60 03/31/19 09:00 O2 Sat by Pulse Oximetry (%) 98 03/30/19 21:00 Constitutional: Yes: No Distress, Calm Neck: Yes: Supple Cardiovascular: Yes: Tachycardia Respiratory: Yes: Regular, Diminished Gastrointestinal: Yes: Soft, Hypoactive Bowel Sounds Edema: No Wound/Incision: Yes: Dressing Dry and Intact (LLE) Labs: CBC, BMP 03/31/19 05:45 03/31/19 05:45 INR, PTT INR 1.63 (0.83-1.09) H 03/31/19 05:45 - ....Imaging EKG: Report Reviewed (ST @ 110) Assessment/Plan Problem List - Problems (1) Obesity Code(s): E66.9 - OBESITY, UNSPECIFIED (2) Pain Code(s): R52 - PAIN, UNSPECIFIED (3) Ulcerative colitis Code(s): K51.90 - ULCERATIVE COLITIS, UNSPECIFIED, WITHOUT COMPLICATIONS (4) Pulmonary embolism Assessment/Plan: On warfarin (for PE and AF). Give IV heparin until INR 2-3. Consider change to DOAC if pt has trouble maintainng INR in therapeutic range ( this is if DOAC is considered effective, given her many medical problems) Code(s): I26.99 - OTHER PULMONARY EMBOLISM WITHOUT ACUTE COR PULMONALE (5) Paroxysmal Atrial fibrillation Assessment/Plan: On warfarin for anticoagulation; start IV heparin until INR 2-3. Start Toprol XL for HR control (PAF; cardiomyopathy). Replete K, and keep 4-4.5 F/u magnesium level, and keep 2-2.4. Code(s): I48.91 - UNSPECIFIED ATRIAL FIBRILLATION (6) S/P IVC filter Assessment/Plan: filter in place (abominal CT). (7) Anxiety and depression Code(s): F41.9 - ANXIETY DISORDER, UNSPECIFIED; F32.9 - MAJOR DEPRESSIVE DISORDER, SINGLE EPISODE, UNSPECIFIED (8) Sedentary lifestyle Code(s): Z91.89 - [facility] PERSONAL RISK FACTORS, NOT ELSEWHERE CLASSIFIED (9) Anemia Code(s): D64.9 - ANEMIA, UNSPECIFIED (10) Leukocytosis Code(s): D72.829 - ELEVATED WHITE BLOOD CELL COUNT, UNSPECIFIED (11) Supratherapeutic INR Assessment/Plan: on IV heparin, warfarin. Code(s): R79.1 - ABNORMAL COAGULATION PROFILE (12) Wound of left lower extremity Code(s): S81.802A - UNSPECIFIED OPEN WOUND, LEFT LOWER LEG, INITIAL ENCOUNTER Abx course per ID, wound care, plastics eval (13) Sinus tachycardia Assessment/Plan: Multiple contributors to pt's tachycardia, including pain, PE/tachypnea, anemia , anxiety/depression, infection, dehydration. Discontinued furosemide (no JVD; no clear signs of CHF on CXR). On warfarin for PE, AF, started Toprol XL 12.5 qd Code(s): R00.0 - TACHYCARDIA, UNSPECIFIED
[2019-03-31] MEDS: MORPHINE SULFATE 2 MG/ML VIAL IVPUSH PRN (13:56)
[2019-03-31] MEDS: WARFARIN NA 2 MG TABLET (UD) PO SCH (17:29)
[2019-03-31] MEDS: metoPROLOL SUCCINATE 25 MG TAB.SR.24H (FP) PO SCH (18:28)
--- NOTE | 2019-03-31 20:15 | PN ---
Progress Note, Physician History of Present Illness: stable - Current Medication List Current Medications: Active Medications Acetaminophen (Tylenol -) 650 mg PO Q6H PRN PRN Reason: PAIN Last Admin: 03/30/19 22:48 Dose: 650 mg Diphenhydramine HCl (Benadryl -) 25 mg PO HS PRN PRN Reason: INSOMNIA Last Admin: 03/30/19 22:47 Dose: 25 mg Heparin Sodium (Porcine) (Heparin -) 1,000 unit IVPUSH PRN PRN PRN Reason: Heparin Last Admin: 03/31/19 17:53 Dose: 1,000 unit Piperacillin Sod/Tazobactam (Sod 3.375 gm/ Dextrose) 50 mls @ 100 mls/hr IVPB Q8H-IV [facility]; Protocol Last Admin: 03/31/19 17:29 Dose: 100 mls/hr HEPARIN SOD,PORK IN 0.45% NACL (Heparin-1/2ns 25,000 Units/500) 25,000 units in 500 mls @ 20 mls/hr IVPB TITR [facility]; Protocol Last Titration: 03/31/19 17:53 Dose: 1,200 units/hr, 24 mls/hr Mesalamine (Asacol Hd -) 800 mg PO TID [facility] Last Admin: 03/31/19 13:13 Dose: 800 mg Metoprolol Succinate (Toprol Xl -) 12.5 mg PO DAILY [facility] Last Admin: 03/31/19 18:28 Dose: 12.5 mg Morphine Sulfate (Morphine Sulfate) 2 mg IVPUSH Q24H PRN PRN Reason: PAIN LEVEL 4 - 6 Last Admin: 03/31/19 13:56 Dose: 2 mg Oxycodone HCl (Roxicodone -) 10 mg PO Q3H PRN PRN Reason: PAIN SCALE 6-10 Last Admin: 03/31/19 16:35 Dose: 10 mg Pantoprazole Sodium (Protonix -) 40 mg PO BID [facility] Last Admin: 03/31/19 09:54 Dose: 40 mg Potassium Chloride (K-Dur -) 40 meq PO BID [facility] Last Admin: 03/31/19 09:54 Dose: 40 meq Warfarin Sodium (Coumadin -) 4 mg PO DAILY@1800 [facility] Last Admin: 03/31/19 17:29 Dose: 4 mg - Objective Vital Signs: Vital Signs Temperature 97.9 F 03/31/19 17:52 Pulse Rate 123 H 03/31/19 17:52 Respiratory Rate 20 03/31/19 17:52 Blood Pressure 116/76 03/31/19 17:52 O2 Sat by Pulse Oximetry (%) 97 03/31/19 10:00 Constitutional: Yes: No Distress HENT: Yes: Atraumatic Neck: Yes: Supple Cardiovascular: Yes: Regular Rate and Rhythm Respiratory: Yes: CTA Bilaterally Gastrointestinal: Yes: Normal Bowel Sounds Extremities: Yes: Other (llex cellulitis) Neurological: Yes: Alert, Oriented Labs: CBC, BMP 03/31/19 05:45 03/31/19 05:45 INR, PTT INR 1.63 (0.83-1.09) H 03/31/19 05:45 Problem List - Problems (1) Anemia Assessment/Plan: s/p blood transfusion h/h stable Code(s): D64.9 - ANEMIA, UNSPECIFIED (2) Leukocytosis Code(s): D72.829 - ELEVATED WHITE BLOOD CELL COUNT, UNSPECIFIED (3) Supratherapeutic INR Assessment/Plan: on coumadin now monitor Code(s): R79.1 - ABNORMAL COAGULATION PROFILE (4) Wound of lower extremity Assessment/Plan: iv abx id and vascular consult woundcare dressing change Code(s): S81.809A - UNSPECIFIED OPEN WOUND, UNSPECIFIED LOWER LEG, INIT ENCNTR
[2019-03-31] MEDS: ACETAMINOPHEN 325 MG TABLET (FP) PO PRN (20:40)
[2019-03-31] MEDS: diphenhydrAMINE HCL 25 MG CAPSULE (FP) PO PRN (21:26)
[2019-04-01] MEDS ORDERED: DEXTROSE 5%-WATER - 50 ML IVPB ONE ×3 (01:07→17:39)
[2019-04-01] MEDS ORDERED: PIPERACILLIN/TAZOBACTAM 3.375 GM VIAL IVPB ONE ×3 (01:07→17:39)
[2019-04-01] MEDS: PIPERACILLIN/TAZOB 3.375 GM 3.375 GM in DEXTROSE 5%-WATER - 50 ML IVPB SCH ×3 (01:23→17:43)
[2019-04-01] MEDS: HEPARIN SOD,PORK IN 0.45% NACL 25,000 UNITS/500 ML INFUS.BAG IVPB SCH (02:40)
[2019-04-01] MEDS: oxyCODONE HCL 5 MG TABLET PO PRN ×7 (02:42→23:37)
[2019-04-01] MEDS: MESALAMINE 800 MG TABLET.DR PO SCH ×3 (05:14→21:53)
[2019-04-01 07:46] LABS: INR 1.9 (0.83-1.09); PROTHROMBIN TIME (PATIENT) 22.6 SEC (9.7-13.0)
[2019-04-01 07:55] LABS: HEMATOCRIT 25.7 % (32.4-45.2); MCH 24.4 pg (25.7-33.7); MCHC 31.2 g/dl (32.0-36.0); MEAN CELL VOLUME 78.4 fl (80-96); MEAN PLT VOLUME 7.8 fl (7.5-11.1); PLATELET COUNT 684 K/MM3 (134-434); RBC 3.28 M/mm3 (3.60-5.2); RDW 21.1 % (11.6-15.6); WHITE BLOOD COUNT 10.9 K/mm3 (4.0-10.0)
[2019-04-01] MEDS: HEPARIN NA (PORCINE) 5,000 UNITS/ML 1ML VIAL IVPUSH PRN ×2 (08:59→18:29)
[2019-04-01] MEDS: POTASSIUM CHLORIDE TABS 10 MEQ TABLET.ER (FP) PO SCH ×2 (10:12→21:53)
[2019-04-01] MEDS: metoPROLOL SUCCINATE 25 MG TAB.SR.24H (FP) PO SCH (10:12)
[2019-04-01] MEDS: PANTOPRAZOLE 40 MG TABLET (FP) PO SCH ×2 (10:12→21:53)
[2019-04-01] MEDS: MORPHINE SULFATE 2 MG/ML VIAL IVPUSH PRN (14:01)
--- NOTE | 2019-04-01 15:22 | PN ---
Progress Note, Physician History of Present Illness: patient stable wound still oozing - Current Medication List Current Medications: Active Medications Acetaminophen (Tylenol -) 650 mg PO Q6H PRN PRN Reason: PAIN Last Admin: 03/31/19 20:40 Dose: 650 mg Diphenhydramine HCl (Benadryl -) 25 mg PO HS PRN PRN Reason: INSOMNIA Last Admin: 03/31/19 21:26 Dose: 25 mg Heparin Sodium (Porcine) (Heparin -) 1,000 unit IVPUSH PRN PRN PRN Reason: Heparin Last Admin: 04/01/19 08:59 Dose: 1,000 unit Piperacillin Sod/Tazobactam (Sod 3.375 gm/ Dextrose) 50 mls @ 100 mls/hr IVPB Q8H-IV [facility]; Protocol Last Admin: 04/01/19 10:12 Dose: 100 mls/hr HEPARIN SOD,PORK IN 0.45% NACL (Heparin-1/2ns 25,000 Units/500) 25,000 units in 500 mls @ 20 mls/hr IVPB TITR [facility]; Protocol Last Titration: 04/01/19 08:59 Dose: 1,000 units/hr, 20 mls/hr Mesalamine (Asacol Hd -) 800 mg PO TID [facility] Last Admin: 04/01/19 14:08 Dose: 800 mg Metoprolol Succinate (Toprol Xl -) 12.5 mg PO DAILY [facility] Last Admin: 04/01/19 10:12 Dose: 12.5 mg Morphine Sulfate (Morphine Sulfate) 2 mg IVPUSH Q24H PRN PRN Reason: PAIN LEVEL 4 - 6 Last Admin: 04/01/19 14:01 Dose: 2 mg Oxycodone HCl (Roxicodone -) 10 mg PO Q3H PRN PRN Reason: PAIN SCALE 6-10 Last Admin: 04/01/19 12:27 Dose: 10 mg Pantoprazole Sodium (Protonix -) 40 mg PO BID [facility] Last Admin: 04/01/19 10:12 Dose: 40 mg Potassium Chloride (K-Dur -) 40 meq PO BID [facility] Last Admin: 04/01/19 10:12 Dose: 40 meq Warfarin Sodium (Coumadin -) 4 mg PO DAILY@1800 [facility] - Objective Vital Signs: Vital Signs Temperature 99.5 F 04/01/19 08:00 Pulse Rate 106 H 04/01/19 08:00 Respiratory Rate 20 04/01/19 08:00 Blood Pressure 91/63 04/01/19 08:00 O2 Sat by Pulse Oximetry (%) 97 04/01/19 09:00 Constitutional: Yes: No Distress, Calm Cardiovascular: Yes: S1, S2 Respiratory: Yes: Regular, CTA Bilaterally Gastrointestinal: Yes: Normal Bowel Sounds, Soft Musculoskeletal: Yes: WNL Extremities: Yes: WNL Wound/Incision: Yes: Dressing Dry and Intact, Draining Neurological: Yes: Alert, Oriented Psychiatric: Yes: Alert, Oriented Labs: CBC, BMP 04/01/19 06:30 03/31/19 05:45 INR, PTT INR 1.90 (0.83-1.09) H 04/01/19 06:30 Assessment/Plan Problem List - Problems (1) Anemia Code(s): D64.9 - ANEMIA, UNSPECIFIED (2) Leukocytosis Code(s): D72.829 - ELEVATED WHITE BLOOD CELL COUNT, UNSPECIFIED (3) Supratherapeutic INR Code(s): R79.1 - ABNORMAL COAGULATION PROFILE (4) Wound of lower extremity Code(s): S81.809A - UNSPECIFIED OPEN WOUND, UNSPECIFIED LOWER LEG, INIT ENCNTR plan abx wound care plastics rest as per the team cx reports final plan has to be made
[2019-04-01] MEDS: ACETAMINOPHEN 325 MG TABLET (FP) PO PRN (16:19)
--- NOTE | 2019-04-01 17:34 | PN ---
Progress Note, Physician - Current Medication List Current Medications: Active Medications Acetaminophen (Tylenol -) 650 mg PO Q6H PRN PRN Reason: PAIN Last Admin: 04/01/19 16:19 Dose: 650 mg Diphenhydramine HCl (Benadryl -) 25 mg PO HS PRN PRN Reason: INSOMNIA Last Admin: 03/31/19 21:26 Dose: 25 mg Heparin Sodium (Porcine) (Heparin -) 1,000 unit IVPUSH PRN PRN PRN Reason: Heparin Last Admin: 04/01/19 08:59 Dose: 1,000 unit Piperacillin Sod/Tazobactam (Sod 3.375 gm/ Dextrose) 50 mls @ 100 mls/hr IVPB Q8H-IV [facility]; Protocol Last Admin: 04/01/19 10:12 Dose: 100 mls/hr HEPARIN SOD,PORK IN 0.45% NACL (Heparin-1/2ns 25,000 Units/500) 25,000 units in 500 mls @ 20 mls/hr IVPB TITR [facility]; Protocol Last Titration: 04/01/19 08:59 Dose: 1,000 units/hr, 20 mls/hr Mesalamine (Asacol Hd -) 800 mg PO TID [facility] Last Admin: 04/01/19 14:08 Dose: 800 mg Metoprolol Succinate (Toprol Xl -) 12.5 mg PO DAILY [facility] Last Admin: 04/01/19 10:12 Dose: 12.5 mg Morphine Sulfate (Morphine Sulfate) 2 mg IVPUSH Q24H PRN PRN Reason: PAIN LEVEL 4 - 6 Last Admin: 04/01/19 14:01 Dose: 2 mg Oxycodone HCl (Roxicodone -) 10 mg PO Q3H PRN PRN Reason: PAIN SCALE 6-10 Last Admin: 04/01/19 16:21 Dose: 10 mg Pantoprazole Sodium (Protonix -) 40 mg PO BID [facility] Last Admin: 04/01/19 10:12 Dose: 40 mg Potassium Chloride (K-Dur -) 40 meq PO BID [facility] Last Admin: 04/01/19 10:12 Dose: 40 meq Warfarin Sodium (Coumadin -) 4 mg PO DAILY@1800 [facility] - Objective Vital Signs: Vital Signs Temperature 100.3 F H 04/01/19 14:00 Pulse Rate 104 H 04/01/19 14:00 Respiratory Rate 18 04/01/19 14:00 Blood Pressure 103/64 04/01/19 14:00 O2 Sat by Pulse Oximetry (%) 97 04/01/19 09:00 Constitutional: Yes: No Distress HENT: Yes: Atraumatic Neck: Yes: Supple Cardiovascular: Yes: Regular Rate and Rhythm Respiratory: Yes: CTA Bilaterally Gastrointestinal: Yes: Normal Bowel Sounds Extremities: Yes: Other (llex cellulitis) Neurological: Yes: Alert, Oriented Labs: CBC, BMP 04/01/19 06:30 03/31/19 05:45 INR, PTT INR 1.90 (0.83-1.09) H 04/01/19 06:30 Problem List - Problems (1) Anemia Assessment/Plan: s/p blood transfusion h/h stable Code(s): D64.9 - ANEMIA, UNSPECIFIED (2) Leukocytosis Code(s): D72.829 - ELEVATED WHITE BLOOD CELL COUNT, UNSPECIFIED (3) Supratherapeutic INR Assessment/Plan: on coumadin now and iv heparin Code(s): R79.1 - ABNORMAL COAGULATION PROFILE (4) Wound of lower extremity Assessment/Plan: iv abx id and vascular consult woundcare dressing change Code(s): S81.809A - UNSPECIFIED OPEN WOUND, UNSPECIFIED LOWER LEG, INIT ENCNTR
[2019-04-01] MEDS: WARFARIN NA 2 MG TABLET (UD) PO SCH (17:43)
[2019-04-01] MEDS: diphenhydrAMINE HCL 25 MG CAPSULE (FP) PO PRN (21:52)
[2019-04-02] MEDS ORDERED: DEXTROSE 5%-WATER - 50 ML IVPB ONE ×3 (01:23→17:16)
[2019-04-02] MEDS ORDERED: PIPERACILLIN/TAZOBACTAM 3.375 GM VIAL IVPB ONE ×3 (01:23→17:16)
[2019-04-02] MEDS: PIPERACILLIN/TAZOB 3.375 GM 3.375 GM in DEXTROSE 5%-WATER - 50 ML IVPB SCH ×3 (01:29→17:18)
[2019-04-02] MEDS: HEPARIN NA (PORCINE) 5,000 UNITS/ML 1ML VIAL IVPUSH PRN ×3 (01:33→16:47)
[2019-04-02] MEDS: HEPARIN SOD,PORK IN 0.45% NACL 25,000 UNITS/500 ML INFUS.BAG IVPB SCH ×2 (01:34→22:44)
[2019-04-02] MEDS: oxyCODONE HCL 5 MG TABLET PO PRN ×5 (03:16→23:26)
[2019-04-02] MEDS: MESALAMINE 800 MG TABLET.DR PO SCH ×3 (05:54→21:40)
[2019-04-02 08:19] LABS: HEMATOCRIT 23.8 % (32.4-45.2); HEMOGLOBIN 7.5 GM/dL (10.7-15.3); MCH 24.9 pg (25.7-33.7); MCHC 31.7 g/dl (32.0-36.0); MEAN CELL VOLUME 78.4 fl (80-96); MEAN PLT VOLUME 7.7 fl (7.5-11.1); PLATELET COUNT 605 K/MM3 (134-434); RBC 3.03 M/mm3 (3.60-5.2); RDW 20.8 % (11.6-15.6)
[2019-04-02 08:19] LABS: INR 1.72 (0.83-1.09); PROTHROMBIN TIME (PATIENT) 20.4 SEC (9.7-13.0)
[2019-04-02 08:22] LABS: ACTIVATED PTT 41.1 SECONDS (25.2-36.5)
[2019-04-02] MEDS: PANTOPRAZOLE 40 MG TABLET (FP) PO SCH ×2 (09:27→21:40)
[2019-04-02] MEDS: metoPROLOL SUCCINATE 25 MG TAB.SR.24H (FP) PO SCH (09:27)
[2019-04-02] MEDS: POTASSIUM CHLORIDE TABS 10 MEQ TABLET.ER (FP) PO SCH ×2 (09:30→21:39)
[2019-04-02] MEDS: ACETAMINOPHEN 325 MG TABLET (FP) PO PRN (11:30)
--- NOTE | 2019-04-02 12:49 | PN ---
Progress Note, Physician - Current Medication List Current Medications: Active Medications Acetaminophen (Tylenol -) 650 mg PO Q6H PRN PRN Reason: PAIN Last Admin: 04/02/19 11:30 Dose: 650 mg Diphenhydramine HCl (Benadryl -) 25 mg PO HS PRN PRN Reason: INSOMNIA Last Admin: 04/01/19 21:52 Dose: 25 mg Heparin Sodium (Porcine) (Heparin -) 1,000 unit IVPUSH PRN PRN PRN Reason: Heparin Last Admin: 04/02/19 09:11 Dose: 1,000 unit Piperacillin Sod/Tazobactam (Sod 3.375 gm/ Dextrose) 50 mls @ 100 mls/hr IVPB Q8H-IV [facility]; Protocol Last Admin: 04/02/19 09:27 Dose: 100 mls/hr HEPARIN SOD,PORK IN 0.45% NACL (Heparin-1/2ns 25,000 Units/500) 25,000 units in 500 mls @ 20 mls/hr IVPB TITR [facility]; Protocol Last Titration: 04/02/19 09:46 Dose: 1,300 units/hr, 26 mls/hr Mesalamine (Asacol Hd -) 800 mg PO TID [facility] Last Admin: 04/02/19 05:54 Dose: 800 mg Metoprolol Succinate (Toprol Xl -) 12.5 mg PO DAILY [facility] Last Admin: 04/02/19 09:27 Dose: 12.5 mg Morphine Sulfate (Morphine Sulfate) 2 mg IVPUSH Q24H PRN PRN Reason: PAIN LEVEL 4 - 6 Last Admin: 04/01/19 14:01 Dose: 2 mg Oxycodone HCl (Roxicodone -) 10 mg PO Q3H PRN PRN Reason: PAIN SCALE 6-10 Last Admin: 04/02/19 09:31 Dose: 10 mg Pantoprazole Sodium (Protonix -) 40 mg PO BID [facility] Last Admin: 04/02/19 09:27 Dose: 40 mg Potassium Chloride (K-Dur -) 40 meq PO BID [facility] Last Admin: 04/02/19 09:30 Dose: 40 meq Warfarin Sodium (Coumadin -) 4 mg PO DAILY@1800 [facility] Last Admin: 04/01/19 17:43 Dose: 4 mg - Objective Vital Signs: Vital Signs Temperature 98.5 F 04/02/19 06:36 Pulse Rate 84 06/19/19 10:00 Respiratory Rate 18 04/02/19 10:00 Blood Pressure 108/60 04/02/19 10:00 O2 Sat by Pulse Oximetry (%) 98 04/01/19 21:00 Labs: CBC, BMP 04/02/19 06:49 03/31/19 05:45 INR, PTT INR 1.72 (0.83-1.09) H 04/02/19 06:40
--- NOTE | 2019-04-02 15:05 | PN ---
Progress Note, Physician History of Present Illness: c/o left leg discomfort, resting comfortably, denies chest pain or dyspnea. - Current Medication List Current Medications: Active Medications Acetaminophen (Tylenol -) 650 mg PO Q6H PRN PRN Reason: PAIN Last Admin: 04/02/19 11:30 Dose: 650 mg Diphenhydramine HCl (Benadryl -) 25 mg PO HS PRN PRN Reason: INSOMNIA Last Admin: 04/01/19 21:52 Dose: 25 mg Heparin Sodium (Porcine) (Heparin -) 1,000 unit IVPUSH PRN PRN PRN Reason: Heparin Last Admin: 04/02/19 09:11 Dose: 1,000 unit Piperacillin Sod/Tazobactam (Sod 3.375 gm/ Dextrose) 50 mls @ 100 mls/hr IVPB Q8H-IV [facility]; Protocol Last Admin: 04/02/19 09:27 Dose: 100 mls/hr HEPARIN SOD,PORK IN 0.45% NACL (Heparin-1/2ns 25,000 Units/500) 25,000 units in 500 mls @ 20 mls/hr IVPB TITR [facility]; Protocol Last Titration: 04/02/19 09:46 Dose: 1,300 units/hr, 26 mls/hr Mesalamine (Asacol Hd -) 800 mg PO TID [facility] Last Admin: 04/02/19 13:32 Dose: 800 mg Metoprolol Succinate (Toprol Xl -) 12.5 mg PO DAILY [facility] Last Admin: 04/02/19 09:27 Dose: 12.5 mg Morphine Sulfate (Morphine Sulfate) 2 mg IVPUSH Q24H PRN PRN Reason: PAIN LEVEL 4 - 6 Last Admin: 04/01/19 14:01 Dose: 2 mg Oxycodone HCl (Roxicodone -) 10 mg PO Q3H PRN PRN Reason: PAIN SCALE 6-10 Last Admin: 04/02/19 13:28 Dose: 10 mg Pantoprazole Sodium (Protonix -) 40 mg PO BID [facility] Last Admin: 04/02/19 09:27 Dose: 40 mg Potassium Chloride (K-Dur -) 40 meq PO BID [facility] Last Admin: 04/02/19 09:30 Dose: 40 meq Warfarin Sodium (Coumadin -) 4 mg PO DAILY@1800 [facility] Last Admin: 04/01/19 17:43 Dose: 4 mg - Objective Vital Signs: Vital Signs Temperature 98.5 F 04/02/19 06:36 Pulse Rate 84 04/02/19 10:00 Respiratory Rate 18 04/02/19 10:00 Blood Pressure 108/60 04/02/19 10:00 O2 Sat by Pulse Oximetry (%) 98 04/01/19 21:00 Constitutional: Yes: No Distress, Calm Neck: Yes: Supple Cardiovascular: Yes: Regular Rate and Rhythm Respiratory: Yes: Regular, Diminished Gastrointestinal: Yes: Normal Bowel Sounds, Soft Edema: Yes Labs: CBC, BMP 04/02/19 06:49 03/31/19 05:45 INR, PTT INR 1.72 (0.83-1.09) H 04/02/19 06:40 Assessment/Plan Problem List - Problems (1) Obesity Code(s): E66.9 - OBESITY, UNSPECIFIED (2) Pain Code(s): R52 - PAIN, UNSPECIFIED (3) Ulcerative colitis Code(s): K51.90 - ULCERATIVE COLITIS, UNSPECIFIED, WITHOUT COMPLICATIONS (4) Pulmonary embolism Assessment/Plan: On warfarin (for PE and AF). Give IV heparin until INR 2-3. Consider change to DOAC if pt has trouble maintainng INR in therapeutic range ( this is if DOAC is considered effective, given her many medical problems) Code(s): I26.99 - OTHER PULMONARY EMBOLISM WITHOUT ACUTE COR PULMONALE (5) Paroxysmal Atrial fibrillation Assessment/Plan: On warfarin for anticoagulation; start IV heparin until INR 2-3. Start Toprol XL for HR control (PAF; cardiomyopathy). Replete K, and keep 4-4.5 F/u magnesium level, and keep 2-2.4. Code(s): I48.91 - UNSPECIFIED ATRIAL FIBRILLATION (6) S/P IVC filter Assessment/Plan: filter in place (abominal CT). (7) Anxiety and depression Code(s): F41.9 - ANXIETY DISORDER, UNSPECIFIED; F32.9 - MAJOR DEPRESSIVE DISORDER, SINGLE EPISODE, UNSPECIFIED (8) Sedentary lifestyle Code(s): Z91.89 - OTH PERSONAL RISK FACTORS, NOT ELSEWHERE CLASSIFIED (9) Anemia Code(s): D64.9 - ANEMIA, UNSPECIFIED (10) Leukocytosis Code(s): D72.829 - ELEVATED WHITE BLOOD CELL COUNT, UNSPECIFIED (11) Supratherapeutic INR Assessment/Plan: on IV heparin, warfarin. Code(s): R79.1 - ABNORMAL COAGULATION PROFILE (12) Wound of left lower extremity Code(s): S81.802A - UNSPECIFIED OPEN WOUND, LEFT LOWER LEG, INITIAL ENCOUNTER Abx course per ID, wound care, plastics eval (13) Sinus tachycardia Assessment/Plan: Multiple contributors to pt's tachycardia, including pain, PE/tachypnea, anemia , anxiety/depression, infection, dehydration. Discontinued furosemide (no JVD; no clear signs of CHF on CXR). On warfarin for PE, AF, started Toprol XL 12.5 qd Code(s): R00.0 - TACHYCARDIA, UNSPECIFIED
[2019-04-02] MEDS: MORPHINE SULFATE 2 MG/ML VIAL IVPUSH PRN (16:56)
[2019-04-02] MEDS: WARFARIN NA 2 MG TABLET (UD) PO SCH (17:18)
[2019-04-02] MEDS ORDERED: WARFARIN NA 5 MG TABLET (UD) PO SCH (18:34)
--- NOTE | 2019-04-02 18:34 | PN ---
Progress Note, Physician History of Present Illness: stable - Current Medication List Current Medications: Active Medications Acetaminophen (Tylenol -) 650 mg PO Q6H PRN PRN Reason: PAIN Last Admin: 04/02/19 11:30 Dose: 650 mg Diphenhydramine HCl (Benadryl -) 25 mg PO HS PRN PRN Reason: INSOMNIA Last Admin: 04/01/19 21:52 Dose: 25 mg Heparin Sodium (Porcine) (Heparin -) 1,000 unit IVPUSH PRN PRN PRN Reason: Heparin Last Admin: 04/02/19 16:47 Dose: 1,000 unit Piperacillin Sod/Tazobactam (Sod 3.375 gm/ Dextrose) 50 mls @ 100 mls/hr IVPB Q8H-IV [facility]; Protocol Last Admin: 04/02/19 17:18 Dose: 100 mls/hr HEPARIN SOD,PORK IN 0.45% NACL (Heparin-1/2ns 25,000 Units/500) 25,000 units in 500 mls @ 20 mls/hr IVPB TITR [facility]; Protocol Last Titration: 04/02/19 09:46 Dose: 1,300 units/hr, 26 mls/hr Mesalamine (Asacol Hd -) 800 mg PO TID [facility] Last Admin: 04/02/19 13:32 Dose: 800 mg Metoprolol Succinate (Toprol Xl -) 12.5 mg PO DAILY [facility] Last Admin: 04/02/19 09:27 Dose: 12.5 mg Morphine Sulfate (Morphine Sulfate) 2 mg IVPUSH Q24H PRN PRN Reason: PAIN LEVEL 4 - 6 Last Admin: 04/02/19 16:56 Dose: 2 mg Oxycodone HCl (Roxicodone -) 10 mg PO Q3H PRN PRN Reason: PAIN SCALE 6-10 Last Admin: 04/02/19 13:28 Dose: 10 mg Pantoprazole Sodium (Protonix -) 40 mg PO BID [facility] Last Admin: 04/02/19 09:27 Dose: 40 mg Potassium Chloride (K-Dur -) 40 meq PO BID [facility] Last Admin: 04/02/19 09:30 Dose: 40 meq Warfarin Sodium (Coumadin -) 4 mg PO DAILY@1800 [facility] Last Admin: 04/02/19 17:18 Dose: 4 mg - Objective Vital Signs: Vital Signs Temperature 98.1 F 04/02/19 14:00 Pulse Rate 96 H 04/02/19 14:00 Respiratory Rate 18 04/02/19 14:00 Blood Pressure 99/61 04/02/19 14:00 O2 Sat by Pulse Oximetry (%) 98 04/01/19 21:00 Constitutional: Yes: No Distress HENT: Yes: Atraumatic Neck: Yes: Supple Cardiovascular: Yes: Regular Rate and Rhythm Respiratory: Yes: CTA Bilaterally Extremities: Yes: Other (L quentin cellulitis) Neurological: Yes: Alert, Oriented Labs: CBC, BMP 04/02/19 06:49 03/31/19 05:45 INR, PTT INR 1.72 (0.83-1.09) H 04/02/19 06:40 Problem List - Problems (1) Anemia Assessment/Plan: s/p blood transfusion h/h stable Code(s): D64.9 - ANEMIA, UNSPECIFIED (2) Leukocytosis Code(s): D72.829 - ELEVATED WHITE BLOOD CELL COUNT, UNSPECIFIED (3) Supratherapeutic INR Assessment/Plan: on coumadin now and iv heparin Code(s): R79.1 - ABNORMAL COAGULATION PROFILE (4) Wound of lower extremity Code(s): S81.809A - UNSPECIFIED OPEN WOUND, UNSPECIFIED LOWER LEG, INIT ENCNTR
[2019-04-02] MEDS: diphenhydrAMINE HCL 25 MG CAPSULE (FP) PO PRN (21:39)
[2019-04-02] MEDS ORDERED: PT OWN MED DRAWER 7, Y5N ONE (22:39)
[2019-04-03] MEDS: HEPARIN NA (PORCINE) 5,000 UNITS/ML 1ML VIAL IVPUSH PRN ×3 (00:14→19:49)
[2019-04-03] MEDS ORDERED: DEXTROSE 5%-WATER - 50 ML IVPB ONE ×4 (01:39→23:39)
[2019-04-03] MEDS ORDERED: PIPERACILLIN/TAZOBACTAM 3.375 GM VIAL IVPB ONE ×4 (01:39→23:39)
[2019-04-03] MEDS: PIPERACILLIN/TAZOB 3.375 GM 3.375 GM in DEXTROSE 5%-WATER - 50 ML IVPB SCH ×3 (02:28→17:50)
[2019-04-03] MEDS: oxyCODONE HCL 5 MG TABLET PO PRN ×6 (02:28→23:40)
[2019-04-03] MEDS: MESALAMINE 800 MG TABLET.DR PO SCH ×3 (05:35→21:16)
[2019-04-03 07:54] LABS: HEMATOCRIT 22.7 % (32.4-45.2); HEMOGLOBIN 7.1 GM/dL (10.7-15.3); MCH 24.6 pg (25.7-33.7); MCHC 31.5 g/dl (32.0-36.0); MEAN CELL VOLUME 78.3 fl (80-96); MEAN PLT VOLUME 7.6 fl (7.5-11.1); PLATELET COUNT 653 K/MM3 (134-434); RDW 21.1 % (11.6-15.6); WHITE BLOOD COUNT 8.2 K/mm3 (4.0-10.0)
[2019-04-03 08:06] LABS: INR 1.62 (0.83-1.09); PROTHROMBIN TIME (PATIENT) 19.2 SEC (9.7-13.0)
[2019-04-03] MEDS: metoPROLOL SUCCINATE 25 MG TAB.SR.24H (FP) PO SCH (09:53)
[2019-04-03] MEDS: POTASSIUM CHLORIDE TABS 10 MEQ TABLET.ER (FP) PO SCH ×2 (09:55→21:15)
[2019-04-03] MEDS: PANTOPRAZOLE 40 MG TABLET (FP) PO SCH ×2 (11:00→21:15)
--- NOTE | 2019-04-03 14:51 | PN ---
Progress Note, Physician History of Present Illness: c/o left leg discomfort, resting comfortably, denies chest pain or dyspnea. - Current Medication List Current Medications: Active Medications Acetaminophen (Tylenol -) 650 mg PO Q6H PRN PRN Reason: PAIN Last Admin: 04/02/19 11:30 Dose: 650 mg Diphenhydramine HCl (Benadryl -) 25 mg PO HS PRN PRN Reason: INSOMNIA Last Admin: 04/02/19 21:39 Dose: 25 mg Heparin Sodium (Porcine) (Heparin -) 1,000 unit IVPUSH PRN PRN PRN Reason: Heparin Last Admin: 04/03/19 09:53 Dose: 1,000 unit Piperacillin Sod/Tazobactam (Sod 3.375 gm/ Dextrose) 50 mls @ 100 mls/hr IVPB Q8H-IV [facility]; Protocol Last Admin: 04/03/19 10:23 Dose: 100 mls/hr HEPARIN SOD,PORK IN 0.45% NACL (Heparin-1/2ns 25,000 Units/500) 25,000 units in 500 mls @ 20 mls/hr IVPB TITR [facility]; Protocol Last Titration: 04/03/19 10:01 Dose: 1,500 units/hr, 30 mls/hr Mesalamine (Asacol Hd -) 800 mg PO TID [facility] Last Admin: 04/03/19 05:35 Dose: 800 mg Metoprolol Succinate (Toprol Xl -) 12.5 mg PO DAILY [facility] Last Admin: 04/03/19 09:53 Dose: 12.5 mg Morphine Sulfate (Morphine Sulfate) 2 mg IVPUSH Q24H PRN PRN Reason: PAIN LEVEL 4 - 6 Last Admin: 04/02/19 16:56 Dose: 2 mg Oxycodone HCl (Roxicodone -) 10 mg PO Q3H PRN PRN Reason: PAIN SCALE 6-10 Last Admin: 04/03/19 12:25 Dose: 10 mg Pantoprazole Sodium (Protonix -) 40 mg PO BID [facility] Last Admin: 04/03/19 11:00 Dose: 40 mg Potassium Chloride (K-Dur -) 40 meq PO BID [facility] Last Admin: 04/03/19 09:55 Dose: 40 meq Warfarin Sodium (Coumadin -) 5 mg PO DAILY@1800 [facility] - Objective Vital Signs: Vital Signs Temperature 98.7 F 04/03/19 09:00 Pulse Rate 105 H 04/03/19 09:00 Respiratory Rate 18 04/03/19 09:00 Blood Pressure 106/64 04/03/19 09:00 O2 Sat by Pulse Oximetry (%) 98 04/01/19 21:00 Constitutional: Yes: No Distress, Calm Neck: Yes: Supple Cardiovascular: Yes: Tachycardia Respiratory: Yes: Regular, Diminished Gastrointestinal: Yes: Normal Bowel Sounds, Soft, Abdomen, Obese Edema: Yes Labs: CBC, BMP 04/03/19 06:25 03/31/19 05:45 INR, PTT INR 1.62 (0.83-1.09) H 04/03/19 06:25 Assessment/Plan Problem List - Problems (1) Obesity Code(s): E66.9 - OBESITY, UNSPECIFIED (2) Pain Code(s): R52 - PAIN, UNSPECIFIED (3) Ulcerative colitis Code(s): K51.90 - ULCERATIVE COLITIS, UNSPECIFIED, WITHOUT COMPLICATIONS (4) Pulmonary embolism Assessment/Plan: On warfarin (for PE and AF). Give IV heparin until INR 2-3. Consider change to DOAC if pt has trouble maintainng INR in therapeutic range ( this is if DOAC is considered effective, given her many medical problems) Code(s): I26.99 - OTHER PULMONARY EMBOLISM WITHOUT ACUTE COR PULMONALE (5) Paroxysmal Atrial fibrillation Assessment/Plan: On warfarin for anticoagulation; start IV heparin until INR 2-3. Increase Toprol XL 25 qd for HR control (PAF; cardiomyopathy). Replete K, and keep 4-4.5 F/u magnesium level, and keep 2-2.4. Code(s): I48.91 - UNSPECIFIED ATRIAL FIBRILLATION (6) S/P IVC filter Assessment/Plan: filter in place (abominal CT). (7) Anxiety and depression Code(s): F41.9 - ANXIETY DISORDER, UNSPECIFIED; F32.9 - MAJOR DEPRESSIVE DISORDER, SINGLE EPISODE, UNSPECIFIED (8) Sedentary lifestyle Code(s): Z91.89 - OTH PERSONAL RISK FACTORS, NOT ELSEWHERE CLASSIFIED (9) Anemia Code(s): D64.9 - ANEMIA, UNSPECIFIED Monitor Hgb and transfuse as needed (11) Subtherapeutic INR Assessment/Plan: on IV heparin, warfarin. Code(s): R79.1 - ABNORMAL COAGULATION PROFILE (12) Wound of left lower extremity Code(s): S81.802A - UNSPECIFIED OPEN WOUND, LEFT LOWER LEG, INITIAL ENCOUNTER Abx course per ID, wound care, plastics eval (13) Sinus tachycardia Assessment/Plan: Multiple contributors to pt's tachycardia, including pain, PE/tachypnea, anemia , anxiety/depression, infection, dehydration. Discontinued furosemide (no JVD; no clear signs of CHF on CXR). On warfarin for PE, AF, increase Toprol XL 25 qd Code(s): R00.0 - TACHYCARDIA, UNSPECIFIED
[2019-04-03] MEDS ORDERED: metoPROLOL SUCCINATE 25 MG TAB.SR.24H (FP) PO SCH (14:52)
--- NOTE | 2019-04-03 16:22 | PN ---
Progress Note, Physician History of Present Illness: stable no new issues - Current Medication List Current Medications: Active Medications Acetaminophen (Tylenol -) 650 mg PO Q6H PRN PRN Reason: PAIN Last Admin: 04/02/19 11:30 Dose: 650 mg Diphenhydramine HCl (Benadryl -) 25 mg PO HS PRN PRN Reason: INSOMNIA Last Admin: 04/02/19 21:39 Dose: 25 mg Heparin Sodium (Porcine) (Heparin -) 1,000 unit IVPUSH PRN PRN PRN Reason: Heparin Last Admin: 04/03/19 09:53 Dose: 1,000 unit Piperacillin Sod/Tazobactam (Sod 3.375 gm/ Dextrose) 50 mls @ 100 mls/hr IVPB Q8H-IV [facility]; Protocol Last Admin: 04/03/19 10:23 Dose: 100 mls/hr HEPARIN SOD,PORK IN 0.45% NACL (Heparin-1/2ns 25,000 Units/500) 25,000 units in 500 mls @ 20 mls/hr IVPB TITR [facility]; Protocol Last Titration: 04/03/19 10:01 Dose: 1,500 units/hr, 30 mls/hr Mesalamine (Asacol Hd -) 800 mg PO TID [facility] Last Admin: 04/03/19 15:17 Dose: 800 mg Metoprolol Succinate (Toprol Xl -) 25 mg PO DAILY [facility] Morphine Sulfate (Morphine Sulfate) 2 mg IVPUSH Q24H PRN PRN Reason: PAIN LEVEL 4 - 6 Last Admin: 04/02/19 16:56 Dose: 2 mg Oxycodone HCl (Roxicodone -) 10 mg PO Q3H PRN PRN Reason: PAIN SCALE 6-10 Last Admin: 04/03/19 12:25 Dose: 10 mg Pantoprazole Sodium (Protonix -) 40 mg PO BID [facility] Last Admin: 04/03/19 11:00 Dose: 40 mg Potassium Chloride (K-Dur -) 40 meq PO BID [facility] Last Admin: 04/03/19 09:55 Dose: 40 meq Warfarin Sodium (Coumadin -) 5 mg PO DAILY@1800 [facility] - Objective Vital Signs: Vital Signs Temperature 98.4 F 04/03/19 14:14 Pulse Rate 113 H 04/03/19 14:14 Respiratory Rate 18 04/03/19 14:14 Blood Pressure 96/56 L 04/03/19 14:14 O2 Sat by Pulse Oximetry (%) 98 04/01/19 21:00 Constitutional: Yes: No Distress, Calm Neck: Yes: Supple Cardiovascular: Yes: Regular Rate and Rhythm Respiratory: Yes: Regular, CTA Bilaterally Gastrointestinal: Yes: Normal Bowel Sounds, Soft Musculoskeletal: Yes: WNL Extremities: Yes: Other Wound/Incision: Yes: Dressing Dry and Intact Neurological: Yes: Alert, Oriented Psychiatric: Yes: Alert, Oriented Labs: CBC, BMP 04/03/19 06:25 03/31/19 05:45 INR, PTT INR 1.62 (0.83-1.09) H 04/03/19 06:25 Assessment/Plan Problem List - Problems (1) Anemia Code(s): D64.9 - ANEMIA, UNSPECIFIED (2) Leukocytosis Code(s): D72.829 - ELEVATED WHITE BLOOD CELL COUNT, UNSPECIFIED (3) Supratherapeutic INR Code(s): R79.1 - ABNORMAL COAGULATION PROFILE (4) Wound of lower extremity Code(s): S81.809A - UNSPECIFIED OPEN WOUND, UNSPECIFIED LOWER LEG, INIT ENCNTR plan abx wound care plastics rest as per the team cx reports final plan has to be made
[2019-04-03] MEDS: MORPHINE SULFATE 2 MG/ML VIAL IVPUSH PRN (16:41)
[2019-04-03] MEDS ORDERED: PT OWN MED DRAWER 7, Y5N ONE (17:44)
[2019-04-03] MEDS: HEPARIN SOD,PORK IN 0.45% NACL 25,000 UNITS/500 ML INFUS.BAG IVPB SCH (17:55)
--- NOTE | 2019-04-03 18:18 | PN ---
Progress Note, Physician History of Present Illness: stable - Current Medication List Current Medications: Active Medications Acetaminophen (Tylenol -) 650 mg PO Q6H PRN PRN Reason: PAIN Last Admin: 04/02/19 11:30 Dose: 650 mg Diphenhydramine HCl (Benadryl -) 25 mg PO HS PRN PRN Reason: INSOMNIA Last Admin: 04/02/19 21:39 Dose: 25 mg Heparin Sodium (Porcine) (Heparin -) 1,000 unit IVPUSH PRN PRN PRN Reason: Heparin Last Admin: 04/03/19 09:53 Dose: 1,000 unit Piperacillin Sod/Tazobactam (Sod 3.375 gm/ Dextrose) 50 mls @ 100 mls/hr IVPB Q8H-IV [facility]; Protocol Last Admin: 04/03/19 17:50 Dose: 100 mls/hr HEPARIN SOD,PORK IN 0.45% NACL (Heparin-1/2ns 25,000 Units/500) 25,000 units in 500 mls @ 20 mls/hr IVPB TITR [facility]; Protocol Last Admin: 04/03/19 17:55 Dose: 1,500 units/hr, 30 mls/hr Mesalamine (Asacol Hd -) 800 mg PO TID [facility] Last Admin: 04/03/19 15:17 Dose: 800 mg Metoprolol Succinate (Toprol Xl -) 25 mg PO DAILY [facility] Morphine Sulfate (Morphine Sulfate) 2 mg IVPUSH Q24H PRN PRN Reason: PAIN LEVEL 4 - 6 Last Admin: 04/03/19 16:41 Dose: 2 mg Nystatin (Mycostatin Cream -) 1 applic TP BID [facility] Oxycodone HCl (Roxicodone -) 10 mg PO Q3H PRN PRN Reason: PAIN SCALE 6-10 Last Admin: 04/03/19 12:25 Dose: 10 mg Pantoprazole Sodium (Protonix -) 40 mg PO BID [facility] Last Admin: 04/03/19 11:00 Dose: 40 mg Potassium Chloride (K-Dur -) 40 meq PO BID [facility] Last Admin: 04/03/19 09:55 Dose: 40 meq Warfarin Sodium (Coumadin -) 5 mg PO DAILY@1800 [facility] Last Admin: 04/03/19 17:51 Dose: 5 mg - Objective Vital Signs: Vital Signs Temperature 98.8 F 04/03/19 18:00 Pulse Rate 103 H 04/03/19 18:00 Respiratory Rate 20 04/03/19 18:00 Blood Pressure 110/59 L 04/03/19 18:00 O2 Sat by Pulse Oximetry (%) 98 04/01/19 21:00 Constitutional: Yes: No Distress HENT: Yes: Atraumatic Neck: Yes: Supple Cardiovascular: Yes: Regular Rate and Rhythm Respiratory: Yes: CTA Bilaterally Gastrointestinal: Yes: Normal Bowel Sounds Musculoskeletal: Yes: WNL Extremities: Yes: Other (llex) Edema: Yes Neurological: Yes: Alert, Oriented Labs: CBC, BMP 04/03/19 06:25 03/31/19 05:45 INR, PTT INR 1.62 (0.83-1.09) H 04/03/19 06:25 Problem List - Problems (1) Anemia Assessment/Plan: s/p blood transfusion h/h stable Code(s): D64.9 - ANEMIA, UNSPECIFIED (2) Leukocytosis Code(s): D72.829 - ELEVATED WHITE BLOOD CELL COUNT, UNSPECIFIED (3) Supratherapeutic INR Assessment/Plan: on coumadin now and iv heparin Code(s): R79.1 - ABNORMAL COAGULATION PROFILE (4) Wound of lower extremity Assessment/Plan: iv abx id and vascular consult woundcare dressing change Code(s): S81.809A - UNSPECIFIED OPEN WOUND, UNSPECIFIED LOWER LEG, INIT ENCNTR
[2019-04-03] MEDS: NYSTATIN 100,000 UNIT/GM TOPICAL CREAM 15 GM TUBE TP SCH (21:27)
[2019-04-03] MEDS: diphenhydrAMINE HCL 25 MG CAPSULE (FP) PO PRN (21:30)
[2019-04-04] MEDS: HEPARIN SOD,PORK IN 0.45% NACL 25,000 UNITS/500 ML INFUS.BAG IVPB SCH ×2 (00:28→12:35)
[2019-04-04] MEDS: PIPERACILLIN/TAZOB 3.375 GM 3.375 GM in DEXTROSE 5%-WATER - 50 ML IVPB SCH ×2 (02:08→09:20)
[2019-04-04] MEDS: oxyCODONE HCL 5 MG TABLET PO PRN ×6 (03:01→20:47)
[2019-04-04] MEDS: MESALAMINE 800 MG TABLET.DR PO SCH ×3 (06:16→21:09)
[2019-04-04 07:59] LABS: HEMATOCRIT 23.9 % (32.4-45.2); HEMOGLOBIN 7.4 GM/dL (10.7-15.3); MCH 24.2 pg (25.7-33.7); MCHC 30.8 g/dl (32.0-36.0); MEAN CELL VOLUME 78.5 fl (80-96); MEAN PLT VOLUME 7.4 fl (7.5-11.1); PLATELET COUNT 736 K/MM3 (134-434); RBC 3.05 M/mm3 (3.60-5.2); RDW 21.6 % (11.6-15.6)
[2019-04-04 08:08] LABS: INR 1.6 (0.83-1.09)
[2019-04-04] MEDS ORDERED: DEXTROSE 5%-WATER - 50 ML IVPB ONE (09:16)
[2019-04-04] MEDS ORDERED: PIPERACILLIN/TAZOBACTAM 3.375 GM VIAL IVPB ONE (09:16)
[2019-04-04] MEDS: PANTOPRAZOLE 40 MG TABLET (FP) PO SCH ×2 (09:19→21:08)
[2019-04-04] MEDS: POTASSIUM CHLORIDE TABS 10 MEQ TABLET.ER (FP) PO SCH ×2 (09:19→21:08)
[2019-04-04] MEDS: NYSTATIN 100,000 UNIT/GM TOPICAL CREAM 15 GM TUBE TP SCH ×2 (09:20→21:08)
[2019-04-04] MEDS: metoPROLOL SUCCINATE 25 MG TAB.SR.24H (FP) PO SCH (11:10)
--- NOTE | 2019-04-04 14:34 | PN ---
Progress Note, Physician History of Present Illness: c/o left leg discomfort, resting comfortably, denies chest pain or dyspnea. Toprol XL decreased 12.5 qd for borderline BP. - Current Medication List Current Medications: Active Medications Acetaminophen (Tylenol -) 650 mg PO Q6H PRN PRN Reason: PAIN Last Admin: 04/02/19 11:30 Dose: 650 mg Diphenhydramine HCl (Benadryl -) 25 mg PO HS PRN PRN Reason: INSOMNIA Last Admin: 04/03/19 21:30 Dose: 25 mg Heparin Sodium (Porcine) (Heparin -) 1,000 unit IVPUSH PRN PRN PRN Reason: Heparin Last Admin: 04/03/19 19:49 Dose: 1,000 unit Piperacillin Sod/Tazobactam (Sod 3.375 gm/ Dextrose) 50 mls @ 100 mls/hr IVPB Q8H-IV [facility]; Protocol Last Admin: 04/04/19 09:20 Dose: 100 mls/hr HEPARIN SOD,PORK IN 0.45% NACL (Heparin-1/2ns 25,000 Units/500) 25,000 units in 500 mls @ 20 mls/hr IVPB TITR [facility]; Protocol Last Admin: 04/04/19 12:35 Dose: 1,600 units/hr, 32 mls/hr Mesalamine (Asacol Hd -) 800 mg PO TID [facility] Last Admin: 04/04/19 13:35 Dose: 800 mg Metoprolol Succinate (Toprol Xl -) 12.5 mg PO DAILY [facility] Last Admin: 04/04/19 11:10 Dose: 12.5 mg Morphine Sulfate (Morphine Sulfate) 2 mg IVPUSH Q24H PRN PRN Reason: PAIN LEVEL 4 - 6 Last Admin: 04/03/19 16:41 Dose: 2 mg Nystatin (Mycostatin Cream -) 1 applic TP BID [facility] Last Admin: 04/04/19 09:20 Dose: 1 applic Oxycodone HCl (Roxicodone -) 10 mg PO Q3H PRN PRN Reason: PAIN SCALE 6-10 Last Admin: 04/04/19 13:35 Dose: 10 mg Pantoprazole Sodium (Protonix -) 40 mg PO BID [facility] Last Admin: 04/04/19 09:19 Dose: 40 mg Potassium Chloride (K-Dur -) 40 meq PO BID [facility] Last Admin: 04/04/19 09:19 Dose: 40 meq Warfarin Sodium (Coumadin -) 5 mg PO DAILY@1800 [facility] Last Admin: 04/03/19 17:51 Dose: 5 mg - Objective Vital Signs: Vital Signs Temperature 99.0 F 04/04/19 06:00 Pulse Rate 53 L 04/04/19 06:00 Respiratory Rate 20 04/04/19 06:00 Blood Pressure 110/59 L 04/04/19 06:00 O2 Sat by Pulse Oximetry (%) 98 04/01/19 21:00 Constitutional: Yes: No Distress, Calm Neck: Yes: Supple Cardiovascular: Yes: Regular Rate and Rhythm Respiratory: Yes: Regular, Diminished Gastrointestinal: Yes: Normal Bowel Sounds, Soft, Abdomen, Obese Edema: Yes Wound/Incision: Yes: Dressing Dry and Intact Labs: CBC, BMP 04/04/19 06:40 03/31/19 05:45 INR, PTT INR 1.60 (0.83-1.09) H 04/04/19 06:40 Assessment/Plan Problem List - Problems (1) Obesity Code(s): E66.9 - OBESITY, UNSPECIFIED (2) Pain Code(s): R52 - PAIN, UNSPECIFIED (3) Ulcerative colitis Code(s): K51.90 - ULCERATIVE COLITIS, UNSPECIFIED, WITHOUT COMPLICATIONS (4) Pulmonary embolism Assessment/Plan: On warfarin (for PE and AF). Continue IV heparin until INR 2-3. Consider change to DOAC if pt has trouble maintainng INR in therapeutic range ( this is if DOAC is considered effective, given her many medical problems) Code(s): I26.99 - OTHER PULMONARY EMBOLISM WITHOUT ACUTE COR PULMONALE (5) Paroxysmal Atrial fibrillation Assessment/Plan: On warfarin for anticoagulation; continue IV heparin until INR 2-3. Increase Toprol XL 25 qd for HR control as hemodynamics tolerate (PAF; cardiomyopathy). Replete K, and keep 4-4.5 F/u magnesium level, and keep 2-2.4. Code(s): I48.91 - UNSPECIFIED ATRIAL FIBRILLATION (6) S/P IVC filter Assessment/Plan: filter in place (abominal CT). (7) Anxiety and depression Code(s): F41.9 - ANXIETY DISORDER, UNSPECIFIED; F32.9 - MAJOR DEPRESSIVE DISORDER, SINGLE EPISODE, UNSPECIFIED (8) Sedentary lifestyle Code(s): Z91.89 - OTH PERSONAL RISK FACTORS, NOT ELSEWHERE CLASSIFIED (9) Anemia Code(s): D64.9 - ANEMIA, UNSPECIFIED Monitor Hgb and transfuse as needed (11) Subtherapeutic INR Assessment/Plan: on IV heparin, warfarin. Code(s): R79.1 - ABNORMAL COAGULATION PROFILE (12) Wound of left lower extremity Code(s): S81.802A - UNSPECIFIED OPEN WOUND, LEFT LOWER LEG, INITIAL ENCOUNTER Abx course per ID, wound care, plastics eval (13) Sinus tachycardia Assessment/Plan: Multiple contributors to pt's tachycardia, including pain, PE/tachypnea, anemia , anxiety/depression, infection, dehydration. Discontinued furosemide (no JVD; no clear signs of CHF on CXR). On warfarin for PE, AF, increase Toprol XL 25 qd as hemodynamics tolerate Code(s): R00.0 - TACHYCARDIA, UNSPECIFIED a
--- NOTE | 2019-04-04 14:50 | PN ---
Progress Note, Physician History of Present Illness: patient stable no new issues - Current Medication List Current Medications: Active Medications Acetaminophen (Tylenol -) 650 mg PO Q6H PRN PRN Reason: PAIN Last Admin: 04/02/19 11:30 Dose: 650 mg Diphenhydramine HCl (Benadryl -) 25 mg PO HS PRN PRN Reason: INSOMNIA Last Admin: 04/03/19 21:30 Dose: 25 mg Heparin Sodium (Porcine) (Heparin -) 1,000 unit IVPUSH PRN PRN PRN Reason: Heparin Last Admin: 04/03/19 19:49 Dose: 1,000 unit Piperacillin Sod/Tazobactam (Sod 3.375 gm/ Dextrose) 50 mls @ 100 mls/hr IVPB Q8H-IV [facility]; Protocol Last Admin: 04/04/19 09:20 Dose: 100 mls/hr HEPARIN SOD,PORK IN 0.45% NACL (Heparin-1/2ns 25,000 Units/500) 25,000 units in 500 mls @ 20 mls/hr IVPB TITR [facility]; Protocol Last Admin: 04/04/19 12:35 Dose: 1,600 units/hr, 32 mls/hr Mesalamine (Asacol Hd -) 800 mg PO TID [facility] Last Admin: 04/04/19 13:35 Dose: 800 mg Metoprolol Succinate (Toprol Xl -) 12.5 mg PO DAILY [facility] Last Admin: 04/04/19 11:10 Dose: 12.5 mg Morphine Sulfate (Morphine Sulfate) 2 mg IVPUSH Q24H PRN PRN Reason: PAIN LEVEL 4 - 6 Last Admin: 04/03/19 16:41 Dose: 2 mg Nystatin (Mycostatin Cream -) 1 applic TP BID [facility] Last Admin: 04/04/19 09:20 Dose: 1 applic Oxycodone HCl (Roxicodone -) 10 mg PO Q3H PRN PRN Reason: PAIN SCALE 6-10 Last Admin: 04/04/19 13:35 Dose: 10 mg Pantoprazole Sodium (Protonix -) 40 mg PO BID [facility] Last Admin: 04/04/19 09:19 Dose: 40 mg Potassium Chloride (K-Dur -) 40 meq PO BID [facility] Last Admin: 04/04/19 09:19 Dose: 40 meq Warfarin Sodium (Coumadin -) 5 mg PO DAILY@1800 [facility] Last Admin: 04/03/19 17:51 Dose: 5 mg - Objective Vital Signs: Vital Signs Temperature 99.0 F 04/04/19 06:00 Pulse Rate 53 L 04/04/19 06:00 Respiratory Rate 20 04/04/19 06:00 Blood Pressure 110/59 L 04/04/19 06:00 O2 Sat by Pulse Oximetry (%) 98 04/01/19 21:00 Constitutional: Yes: No Distress, Calm Cardiovascular: Yes: Regular Rate and Rhythm Respiratory: Yes: Regular, CTA Bilaterally Gastrointestinal: Yes: Normal Bowel Sounds, Soft Musculoskeletal: Yes: WNL Extremities: Yes: Other Wound/Incision: Yes: Dressing Dry and Intact Neurological: Yes: Alert, Oriented Psychiatric: Yes: Alert, Oriented Labs: CBC, BMP 04/04/19 06:40 03/31/19 05:45 INR, PTT INR 1.60 (0.83-1.09) H 04/04/19 06:40 Assessment/Plan Problem List - Problems (1) Anemia Code(s): D64.9 - ANEMIA, UNSPECIFIED (2) Leukocytosis Code(s): D72.829 - ELEVATED WHITE BLOOD CELL COUNT, UNSPECIFIED (3) Supratherapeutic INR Code(s): R79.1 - ABNORMAL COAGULATION PROFILE (4) Wound of lower extremity Code(s): S81.809A - UNSPECIFIED OPEN WOUND, UNSPECIFIED LOWER LEG, INIT ENCNTR patient has got iv abx for 11 days now can switch to oral levaquin for 7 more days patient needs a definitive treatment wounds will again get infected abx cannot continue indefinitely patient needs to be followed by wound care and might need plastics rest as per the team wound care
--- NOTE | 2019-04-04 17:28 | PN ---
Progress Note, Physician - Current Medication List Current Medications: Active Medications Acetaminophen (Tylenol -) 650 mg PO Q6H PRN PRN Reason: PAIN Last Admin: 04/02/19 11:30 Dose: 650 mg Diphenhydramine HCl (Benadryl -) 25 mg PO HS PRN PRN Reason: INSOMNIA Last Admin: 04/03/19 21:30 Dose: 25 mg Heparin Sodium (Porcine) (Heparin -) 1,000 unit IVPUSH PRN PRN PRN Reason: Heparin Last Admin: 04/03/19 19:49 Dose: 1,000 unit Piperacillin Sod/Tazobactam (Sod 3.375 gm/ Dextrose) 50 mls @ 100 mls/hr IVPB Q8H-IV [facility]; Protocol Last Admin: 04/04/19 09:20 Dose: 100 mls/hr HEPARIN SOD,PORK IN 0.45% NACL (Heparin-1/2ns 25,000 Units/500) 25,000 units in 500 mls @ 20 mls/hr IVPB TITR [facility]; Protocol Last Admin: 04/04/19 12:35 Dose: 1,600 units/hr, 32 mls/hr Mesalamine (Asacol Hd -) 800 mg PO TID [facility] Last Admin: 04/04/19 13:35 Dose: 800 mg Metoprolol Succinate (Toprol Xl -) 12.5 mg PO DAILY [facility] Last Admin: 04/04/19 11:10 Dose: 12.5 mg Morphine Sulfate (Morphine Sulfate) 2 mg IVPUSH Q24H PRN PRN Reason: PAIN LEVEL 4 - 6 Last Admin: 04/03/19 16:41 Dose: 2 mg Nystatin (Mycostatin Cream -) 1 applic TP BID [facility] Last Admin: 04/04/19 09:20 Dose: 1 applic Oxycodone HCl (Roxicodone -) 10 mg PO Q3H PRN PRN Reason: PAIN SCALE 6-10 Last Admin: 04/04/19 16:52 Dose: 10 mg Pantoprazole Sodium (Protonix -) 40 mg PO BID [facility] Last Admin: 04/04/19 09:19 Dose: 40 mg Potassium Chloride (K-Dur -) 40 meq PO BID [facility] Last Admin: 04/04/19 09:19 Dose: 40 meq Warfarin Sodium (Coumadin -) 5 mg PO DAILY@1800 [facility] Last Admin: 04/03/19 17:51 Dose: 5 mg - Objective Vital Signs: Vital Signs Temperature 99.2 F 04/04/19 14:00 Pulse Rate 62 04/04/19 14:00 Respiratory Rate 20 04/04/19 14:00 Blood Pressure 98/62 04/04/19 14:00 O2 Sat by Pulse Oximetry (%) 98 04/01/19 21:00 Constitutional: Yes: No Distress HENT: Yes: Atraumatic Neck: Yes: Supple Cardiovascular: Yes: Regular Rate and Rhythm Respiratory: Yes: CTA Bilaterally Gastrointestinal: Yes: Normal Bowel Sounds Extremities: Yes: Other (llex cellulitis) Neurological: Yes: Alert, Oriented Labs: CBC, BMP 04/04/19 06:40 03/31/19 05:45 INR, PTT INR 1.60 (0.83-1.09) H 04/04/19 06:40 Problem List - Problems (1) Anemia Assessment/Plan: s/p blood transfusion h/h stable Code(s): D64.9 - ANEMIA, UNSPECIFIED (2) Leukocytosis Code(s): D72.829 - ELEVATED WHITE BLOOD CELL COUNT, UNSPECIFIED (3) Supratherapeutic INR Assessment/Plan: on coumadin now and iv heparin Code(s): R79.1 - ABNORMAL COAGULATION PROFILE (4) Wound of lower extremity Assessment/Plan: iv abx id and vascular consult woundcare dressing change Code(s): S81.809A - UNSPECIFIED OPEN WOUND, UNSPECIFIED LOWER LEG, INIT ENCNTR (5) Hypokalemia Assessment/Plan: on po k Code(s): E87.6 - HYPOKALEMIA
[2019-04-04] MEDS ORDERED: PT OWN MED DRAWER 7, Y5N ONE (17:57)
[2019-04-04] MEDS: WARFARIN NA 7.5 MG TABLET (FP) PO SCH (18:07)
[2019-04-05] MEDS: oxyCODONE HCL 5 MG TABLET PO PRN ×5 (01:47→20:40)
[2019-04-05] MEDS: diphenhydrAMINE HCL 25 MG CAPSULE (FP) PO PRN ×2 (01:47→21:32)
[2019-04-05] MEDS: HEPARIN SOD,PORK IN 0.45% NACL 25,000 UNITS/500 ML INFUS.BAG IVPB SCH ×2 (02:50→02:55)
[2019-04-05] MEDS: MESALAMINE 800 MG TABLET.DR PO SCH ×3 (05:42→21:31)
[2019-04-05 08:36] LABS: BASO % 1.6 % (0-2.0); EOS % 6.5 % (0-4.5); HEMATOCRIT 25.2 % (32.4-45.2); HEMOGLOBIN 7.8 GM/dL (10.7-15.3); LYMPH % 25.6 % (8-40); MCH 24.3 pg (25.7-33.7); MCHC 31.2 g/dl (32.0-36.0); MEAN CELL VOLUME 77.8 fl (80-96); MEAN PLT VOLUME 7.3 fl (7.5-11.1); MONO % 13.5 % (3.8-10.2); NEUT % 52.8 % (42.8-82.8); PLATELET COUNT 776 K/MM3 (134-434); RBC 3.23 M/mm3 (3.60-5.2); RDW 21.6 % (11.6-15.6)
[2019-04-05 09:03] LABS: ALBUMIN 2.1 g/dl (3.4-5.0); BILIRUBIN,TOTAL 0.4 mg/dL (0.2-1); BLOOD UREA NITROGEN 7.9 mg/dL (7-18); CALCIUM 8.8 mg/dL (8.5-10.1); CREATININE 0.8 mg/dL (0.55-1.3); POTASSIUM 4.6 mmol/L (3.5-5.1)
[2019-04-05 09:34] LABS: INR 2.13 (0.83-1.09); PROTHROMBIN TIME (PATIENT) 25.3 SEC (9.7-13.0)
[2019-04-05] MEDS: metoPROLOL SUCCINATE 25 MG TAB.SR.24H (FP) PO SCH (12:04)
[2019-04-05] MEDS: POTASSIUM CHLORIDE TABS 10 MEQ TABLET.ER (FP) PO SCH ×2 (12:04→21:31)
[2019-04-05] MEDS: PANTOPRAZOLE 40 MG TABLET (FP) PO SCH ×2 (12:05→21:32)
[2019-04-05] MEDS: NYSTATIN 100,000 UNIT/GM TOPICAL CREAM 15 GM TUBE TP SCH ×2 (12:05→21:59)
[2019-04-05] MEDS ORDERED: PT OWN MED DRAWER 7, Y5N ONE (12:07)
[2019-04-05 13:11] LABS: ANISOCYTOSIS 1+
[2019-04-05 13:12] LABS: PLATELET ESTIMATE INCREASED
[2019-04-05] MEDS: WARFARIN NA 7.5 MG TABLET (FP) PO SCH (18:05)
--- NOTE | 2019-04-05 22:57 | PN ---
Progress Note, Physician History of Present Illness: No new complaints - Current Medication List Current Medications: Active Medications Acetaminophen (Tylenol -) 650 mg PO Q6H PRN PRN Reason: PAIN Last Admin: 04/02/19 11:30 Dose: 650 mg Diphenhydramine HCl (Benadryl -) 25 mg PO HS PRN PRN Reason: INSOMNIA Last Admin: 04/05/19 21:32 Dose: 25 mg Levofloxacin (Levaquin -) 750 mg PO DAILY@0600 [facility] Last Admin: 04/05/19 05:41 Dose: 750 mg Mesalamine (Asacol Hd -) 800 mg PO TID [facility] Last Admin: 04/05/19 21:31 Dose: 800 mg Metoprolol Succinate (Toprol Xl -) 12.5 mg PO DAILY [facility] Last Admin: 04/05/19 12:04 Dose: 12.5 mg Nystatin (Mycostatin Cream -) 1 applic TP BID [facility] Last Admin: 04/05/19 21:59 Dose: 1 applic Oxycodone HCl (Roxicodone -) 10 mg PO Q4H PRN PRN Reason: PAIN 6-10 Last Admin: 04/05/19 20:40 Dose: 10 mg Pantoprazole Sodium (Protonix -) 40 mg PO BID [facility] Last Admin: 04/05/19 21:32 Dose: 40 mg Potassium Chloride (K-Dur -) 40 meq PO BID [facility] Last Admin: 04/05/19 21:31 Dose: 40 meq Warfarin Sodium (Coumadin -) 7.5 mg PO DAILY@1800 [facility] Last Admin: 04/05/19 18:05 Dose: 7.5 mg - Objective Vital Signs: Vital Signs Temperature 98.5 F 04/05/19 21:00 Pulse Rate 105 H 04/05/19 21:00 Respiratory Rate 18 04/05/19 21:00 Blood Pressure 98/63 04/05/19 21:00 O2 Sat by Pulse Oximetry (%) 98 04/04/19 09:00 Neck: Yes: WNL, Supple Cardiovascular: Yes: WNL, Regular Rate and Rhythm Respiratory: Yes: WNL, Regular, CTA Bilaterally Extremities: Yes: Other (Leg w/ dressing) Labs: CBC, BMP 04/05/19 08:00 04/05/19 08:00 INR, PTT INR 2.13 (0.83-1.09) H 04/05/19 08:00 Problem List - Problems (1) Leukocytosis Assessment/Plan: Due to leg ulcers Cont antibx Code(s): D72.829 - ELEVATED WHITE BLOOD CELL COUNT, UNSPECIFIED (2) Paroxysmal A-fib Assessment/Plan: Heart rate controlled Cont warfarin Monitor PT/INR Code(s): I48.0 - PAROXYSMAL ATRIAL FIBRILLATION (3) HTN (hypertension) Assessment/Plan: BP better controlled Cont antihypertensives Code(s): I10 - ESSENTIAL (PRIMARY) HYPERTENSION (4) Anemia Assessment/Plan: H/H stable Code(s): D64.9 - ANEMIA, UNSPECIFIED (5) Pulmonary embolism Assessment/Plan: Cont warfarin Monitor PT/INR Code(s): I26.99 - OTHER PULMONARY EMBOLISM WITHOUT ACUTE COR PULMONALE (7) Ulcerative colitis Code(s): K51.90 - ULCERATIVE COLITIS, UNSPECIFIED, WITHOUT COMPLICATIONS
[2019-04-06] MEDS: oxyCODONE HCL 5 MG TABLET PO PRN ×6 (02:45→23:07)
[2019-04-06] MEDS: ACETAMINOPHEN 325 MG TABLET (FP) PO PRN ×2 (05:44→18:21)
[2019-04-06] MEDS: MESALAMINE 800 MG TABLET.DR PO SCH ×3 (05:45→22:23)
[2019-04-06 09:18] LABS: INR 3.19 (0.83-1.09); PROTHROMBIN TIME (PATIENT) 38.1 SEC (9.7-13.0)
[2019-04-06] MEDS: POTASSIUM CHLORIDE TABS 10 MEQ TABLET.ER (FP) PO SCH ×2 (10:50→22:23)
[2019-04-06] MEDS: metoPROLOL SUCCINATE 25 MG TAB.SR.24H (FP) PO SCH (10:50)
[2019-04-06] MEDS: PANTOPRAZOLE 40 MG TABLET (FP) PO SCH ×2 (10:50→22:23)
[2019-04-06] MEDS ORDERED: PT OWN MED DRAWER 7, Y5N ONE (10:52)
--- NOTE | 2019-04-06 14:59 | PN ---
Progress Note, Physician History of Present Illness: Pt seen and examined. Events noted. She states her LE has less pain. No other specific complaints. - Current Medication List Current Medications: Active Medications Acetaminophen (Tylenol -) 650 mg PO Q6H PRN PRN Reason: PAIN Last Admin: 04/06/19 05:44 Dose: 650 mg Diphenhydramine HCl (Benadryl -) 25 mg PO HS PRN PRN Reason: INSOMNIA Last Admin: 04/05/19 21:32 Dose: 25 mg Levofloxacin (Levaquin -) 750 mg PO DAILY@0600 [facility] Last Admin: 04/06/19 05:45 Dose: 750 mg Mesalamine (Asacol Hd -) 800 mg PO TID [facility] Last Admin: 04/06/19 14:43 Dose: 800 mg Metoprolol Succinate (Toprol Xl -) 12.5 mg PO DAILY [facility] Last Admin: 04/06/19 10:50 Dose: 12.5 mg Nystatin (Mycostatin Cream -) 1 applic TP BID [facility] Last Admin: 04/05/19 21:59 Dose: 1 applic Oxycodone HCl (Roxicodone -) 10 mg PO Q4H PRN PRN Reason: PAIN 6-10 Last Admin: 04/06/19 14:43 Dose: 10 mg Pantoprazole Sodium (Protonix -) 40 mg PO BID [facility] Last Admin: 04/06/19 10:50 Dose: 40 mg Potassium Chloride (K-Dur -) 40 meq PO BID [facility] Last Admin: 04/06/19 10:50 Dose: 40 meq Warfarin Sodium (Coumadin -) 7.5 mg PO DAILY@1800 [facility] Last Admin: 04/05/19 18:05 Dose: 7.5 mg - Objective Vital Signs: Vital Signs Temperature 98 F 04/06/19 13:48 Pulse Rate 110 H 04/06/19 13:48 Respiratory Rate 18 04/06/19 13:48 Blood Pressure 116/68 04/06/19 13:48 O2 Sat by Pulse Oximetry (%) 98 04/04/19 09:00 Constitutional: Yes: No Distress Cardiovascular: Yes: Regular Rate and Rhythm Respiratory: Yes: Regular Gastrointestinal: Yes: Normal Bowel Sounds, Soft, Abdomen, Obese Wound/Incision: Yes: Other (dressing with mod greenish drainage, less leg erythema/tenderness/warmth) Neurological: Yes: Alert, Oriented Labs: CBC, BMP 04/05/19 08:00 04/05/19 08:00 INR, PTT INR 3.19 (0.83-1.09) H 04/06/19 08:20 Microbiology 03/24/19 16:00 Blood - Peripheral Venous Blood Culture - Final NO GROWTH AFTER 5 DAYS INCUBATION 03/24/19 15:30 Blood - Peripheral Venous Blood Culture - Final NO GROWTH AFTER 5 DAYS INCUBATION 03/24/19 14:15 Skin - Superficial Wound Gram Stain - Final 03/24/19 14:15 Skin - Superficial Wound Wound Culture - Final Pseudomonas Aeruginosa Beta Hem Streptococcus Group G Staphylococcus Coagulase Neg Problem List - Problems (1) Leukocytosis Code(s): D72.829 - ELEVATED WHITE BLOOD CELL COUNT, UNSPECIFIED (2) Wound of lower extremity Code(s): S81.809A - UNSPECIFIED OPEN WOUND, UNSPECIFIED LOWER LEG, INIT ENCNTR Assessment/Plan Infected LE wound/Chronic nonhealing ulcers, Cellulitis Hx of DVT/PE Paroxysmal AFIB Leukocytosis - resolved -- Pt is on coumadin, there is concern for potential interaction with levaquin -- will switch back to Zosyn to continue treatment (wound culture isolates reviewed) -- Continue wound care, recommend evaluation by plastic surgery -- pain is controlled
[2019-04-06] MEDS ORDERED: PIPERACILLIN/TAZOBACTAM 3.375 GM VIAL IVPB ONE (18:04)
[2019-04-06] MEDS ORDERED: DEXTROSE 5%-WATER - 50 ML IVPB ONE (18:04)
[2019-04-06] MEDS: PIPERACILLIN/TAZOB 3.375 GM 3.375 GM in DEXTROSE 5%-WATER - 50 ML IVPB SCH (18:20)
[2019-04-06] MEDS: WARFARIN NA 7.5 MG TABLET (FP) PO SCH (18:20)
--- NOTE | 2019-04-06 19:33 | PN ---
Progress Note, Physician History of Present Illness: No new complaints - Current Medication List Current Medications: Active Medications Acetaminophen (Tylenol -) 650 mg PO Q6H PRN PRN Reason: PAIN Last Admin: 04/06/19 18:21 Dose: 650 mg Diphenhydramine HCl (Benadryl -) 25 mg PO HS PRN PRN Reason: INSOMNIA Last Admin: 04/05/19 21:32 Dose: 25 mg Piperacillin Sod/Tazobactam (Sod 3.375 gm/ Dextrose) 50 mls @ 100 mls/hr IVPB Q8H-IV [facility]; Protocol Last Admin: 04/06/19 18:20 Dose: 100 mls/hr Mesalamine (Asacol Hd -) 800 mg PO TID [facility] Last Admin: 04/06/19 14:43 Dose: 800 mg Metoprolol Succinate (Toprol Xl -) 12.5 mg PO DAILY [facility] Last Admin: 04/06/19 10:50 Dose: 12.5 mg Nystatin (Mycostatin Cream -) 1 applic TP BID [facility] Last Admin: 04/05/19 21:59 Dose: 1 applic Oxycodone HCl (Roxicodone -) 10 mg PO Q4H PRN PRN Reason: PAIN 6-10 Last Admin: 04/06/19 19:08 Dose: 10 mg Pantoprazole Sodium (Protonix -) 40 mg PO BID [facility] Last Admin: 04/06/19 10:50 Dose: 40 mg Potassium Chloride (K-Dur -) 40 meq PO BID [facility] Last Admin: 04/06/19 10:50 Dose: 40 meq Warfarin Sodium (Coumadin -) 7.5 mg PO DAILY@1800 [facility] Last Admin: 04/06/19 18:20 Dose: Not Given - Objective Vital Signs: Vital Signs Temperature 98.1 F 04/06/19 18:00 Pulse Rate 106 H 04/06/19 18:00 Respiratory Rate 20 04/06/19 18:00 Blood Pressure 103/71 04/06/19 18:00 O2 Sat by Pulse Oximetry (%) 98 04/04/19 09:00 Neck: Yes: WNL, Supple Cardiovascular: Yes: WNL, Regular Rate and Rhythm Respiratory: Yes: WNL, Regular, CTA Bilaterally Gastrointestinal: Yes: WNL, Normal Bowel Sounds, Soft Extremities: Yes: Other (leg in dressing) Labs: CBC, BMP 04/05/19 08:00 04/05/19 08:00 INR, PTT INR 3.19 (0.83-1.09) H 04/06/19 08:20 Problem List - Problems (1) Leukocytosis Assessment/Plan: Due to leg ulcers Changed to IV antibxs due to interaction btwn levaquin and warfarin Code(s): D72.829 - ELEVATED WHITE BLOOD CELL COUNT, UNSPECIFIED (2) Paroxysmal A-fib Assessment/Plan: Heart rate controlled warfarin held for today Monitor PT/INR Code(s): I48.0 - PAROXYSMAL ATRIAL FIBRILLATION (3) HTN (hypertension) Assessment/Plan: BP better controlled Cont antihypertensives Code(s): I10 - ESSENTIAL (PRIMARY) HYPERTENSION (4) Anemia Assessment/Plan: H/H stable Code(s): D64.9 - ANEMIA, UNSPECIFIED (5) Pulmonary embolism Assessment/Plan: Cont warfarin Monitor PT/INR Code(s): I26.99 - OTHER PULMONARY EMBOLISM WITHOUT ACUTE COR PULMONALE (7) Ulcerative colitis Code(s): K51.90 - ULCERATIVE COLITIS, UNSPECIFIED, WITHOUT COMPLICATIONS
[2019-04-06] MEDS: NYSTATIN 100,000 UNIT/GM TOPICAL CREAM 15 GM TUBE TP SCH (23:08)
[2019-04-07] MEDS ORDERED: DEXTROSE 5%-WATER - 50 ML IVPB ONE ×3 (00:59→17:13)
[2019-04-07] MEDS ORDERED: PIPERACILLIN/TAZOBACTAM 3.375 GM VIAL IVPB ONE ×3 (00:59→17:13)
[2019-04-07] MEDS: PIPERACILLIN/TAZOB 3.375 GM 3.375 GM in DEXTROSE 5%-WATER - 50 ML IVPB SCH ×3 (01:45→17:22)
[2019-04-07] MEDS: MESALAMINE 800 MG TABLET.DR PO SCH ×3 (05:43→21:17)
[2019-04-07] MEDS: oxyCODONE HCL 5 MG TABLET PO PRN ×4 (05:43→20:40)
[2019-04-07 09:42] LABS: INR 2.95 (0.83-1.09); PROTHROMBIN TIME (PATIENT) 35.2 SEC (9.7-13.0)
[2019-04-07] MEDS: metoPROLOL SUCCINATE 25 MG TAB.SR.24H (FP) PO SCH (10:43)
[2019-04-07] MEDS: PANTOPRAZOLE 40 MG TABLET (FP) PO SCH ×2 (10:43→21:17)
[2019-04-07] MEDS: POTASSIUM CHLORIDE TABS 10 MEQ TABLET.ER (FP) PO SCH ×2 (10:52→21:16)
--- NOTE | 2019-04-07 11:46 | PN ---
Progress Note, Physician History of Present Illness: Left leg discomfort improving, resting comfortably, denies chest pain or dyspnea. Hemodynamics stable. - Current Medication List Current Medications: Active Medications Acetaminophen (Tylenol -) 650 mg PO Q6H PRN PRN Reason: PAIN Last Admin: 04/06/19 18:21 Dose: 650 mg Diphenhydramine HCl (Benadryl -) 25 mg PO HS PRN PRN Reason: INSOMNIA Last Admin: 04/05/19 21:32 Dose: 25 mg Piperacillin Sod/Tazobactam (Sod 3.375 gm/ Dextrose) 50 mls @ 100 mls/hr IVPB Q8H-IV [facility]; Protocol Last Admin: 04/07/19 10:43 Dose: 100 mls/hr Mesalamine (Asacol Hd -) 800 mg PO TID [facility] Last Admin: 04/07/19 05:43 Dose: 800 mg Metoprolol Succinate (Toprol Xl -) 12.5 mg PO DAILY [facility] Last Admin: 04/07/19 10:43 Dose: 12.5 mg Nystatin (Mycostatin Cream -) 1 applic TP BID [facility] Last Admin: 04/06/19 23:08 Dose: 1 applic Oxycodone HCl (Roxicodone -) 10 mg PO Q4H PRN PRN Reason: PAIN 6-10 Last Admin: 04/07/19 10:52 Dose: 10 mg Pantoprazole Sodium (Protonix -) 40 mg PO BID [facility] Last Admin: 04/07/19 10:43 Dose: 40 mg Potassium Chloride (K-Dur -) 40 meq PO BID [facility] Last Admin: 04/07/19 10:52 Dose: 40 meq Warfarin Sodium (Coumadin -) 7.5 mg PO DAILY@1800 [facility] Last Admin: 04/06/19 18:20 Dose: Not Given - Objective Vital Signs: Vital Signs Temperature 98.7 F 04/07/19 09:40 Pulse Rate 112 H 04/07/19 09:40 Respiratory Rate 20 04/07/19 09:40 Blood Pressure 117/75 04/07/19 09:40 O2 Sat by Pulse Oximetry (%) 97 04/06/19 21:00 Constitutional: Yes: No Distress, Calm Neck: Yes: Supple Cardiovascular: Yes: Tachycardia Respiratory: Yes: Regular, Diminished Gastrointestinal: Yes: Soft, Hypoactive Bowel Sounds Edema: No Wound/Incision: Yes: Dressing Dry and Intact Labs: CBC, BMP 04/05/19 08:00 04/05/19 08:00 INR, PTT INR 2.95 (0.83-1.09) H 04/07/19 09:00 Assessment/Plan Problem List - Problems (1) Obesity Code(s): E66.9 - OBESITY, UNSPECIFIED (2) Pain Code(s): R52 - PAIN, UNSPECIFIED (3) Ulcerative colitis Code(s): K51.90 - ULCERATIVE COLITIS, UNSPECIFIED, WITHOUT COMPLICATIONS (4) Pulmonary embolism Assessment/Plan: On warfarin (for PE and AF) per INR 2-3. Consider change to DOAC if pt has trouble maintainng INR in therapeutic range ( this is if DOAC is considered effective, given her many medical problems) Code(s): I26.99 - OTHER PULMONARY EMBOLISM WITHOUT ACUTE COR PULMONALE (5) Paroxysmal Atrial fibrillation Assessment/Plan: On warfarin for anticoagulation per INR 2-3. Increase Toprol XL 25 qd for HR control as hemodynamics tolerate (PAF; cardiomyopathy). Replete K, and keep 4-4.5 F/u magnesium level, and keep 2-2.4. Code(s): I48.91 - UNSPECIFIED ATRIAL FIBRILLATION (6) S/P IVC filter Assessment/Plan: filter in place (abominal CT). (7) Anxiety and depression Code(s): F41.9 - ANXIETY DISORDER, UNSPECIFIED; F32.9 - MAJOR DEPRESSIVE DISORDER, SINGLE EPISODE, UNSPECIFIED (8) Sedentary lifestyle Code(s): Z91.89 - OTH PERSONAL RISK FACTORS, NOT ELSEWHERE CLASSIFIED (9) Anemia Code(s): D64.9 - ANEMIA, UNSPECIFIED Monitor Hgb and transfuse as needed (12) Wound of left lower extremity Code(s): S81.802A - UNSPECIFIED OPEN WOUND, LEFT LOWER LEG, INITIAL ENCOUNTER Abx course per ID, wound care, plastics eval (13) Sinus tachycardia Assessment/Plan: Multiple contributors to pt's tachycardia, including pain, PE/tachypnea, anemia , anxiety/depression, infection, dehydration. Discontinued furosemide (no JVD; no clear signs of CHF on CXR). On warfarin for PE, AF, increase Toprol XL 25 qd as hemodynamics tolerate Code(s): R00.0 - TACHYCARDIA, UNSPECIFIED
[2019-04-07] MEDS: NYSTATIN 100,000 UNIT/GM TOPICAL CREAM 15 GM TUBE TP SCH ×2 (12:05→21:17)
--- NOTE | 2019-04-07 14:11 | PN ---
Progress Note, Physician - Current Medication List Current Medications: Active Medications Acetaminophen (Tylenol -) 650 mg PO Q6H PRN PRN Reason: PAIN Last Admin: 04/06/19 18:21 Dose: 650 mg Diphenhydramine HCl (Benadryl -) 25 mg PO HS PRN PRN Reason: INSOMNIA Last Admin: 04/05/19 21:32 Dose: 25 mg Piperacillin Sod/Tazobactam (Sod 3.375 gm/ Dextrose) 50 mls @ 100 mls/hr IVPB Q8H-IV [facility]; Protocol Last Admin: 04/07/19 10:43 Dose: 100 mls/hr Mesalamine (Asacol Hd -) 800 mg PO TID [facility] Last Admin: 04/07/19 14:03 Dose: 800 mg Metoprolol Succinate (Toprol Xl -) 25 mg PO DAILY [facility] Nystatin (Mycostatin Cream -) 1 applic TP BID [facility] Last Admin: 04/07/19 12:05 Dose: 1 applic Oxycodone HCl (Roxicodone -) 10 mg PO Q4H PRN PRN Reason: PAIN 6-10 Last Admin: 04/07/19 10:52 Dose: 10 mg Pantoprazole Sodium (Protonix -) 40 mg PO BID [facility] Last Admin: 04/07/19 10:43 Dose: 40 mg Potassium Chloride (K-Dur -) 40 meq PO BID [facility] Last Admin: 04/07/19 10:52 Dose: 40 meq Warfarin Sodium (Coumadin -) 7.5 mg PO DAILY@1800 [facility] Last Admin: 04/06/19 18:20 Dose: Not Given - Objective Vital Signs: Vital Signs Temperature 98.7 F 04/07/19 09:40 Pulse Rate 112 H 04/07/19 09:40 Respiratory Rate 20 04/07/19 09:40 Blood Pressure 117/75 04/07/19 09:40 O2 Sat by Pulse Oximetry (%) 97 04/07/19 09:00 Labs: CBC, BMP 04/05/19 08:00 04/05/19 08:00 INR, PTT INR 2.95 (0.83-1.09) H 04/07/19 09:00
[2019-04-07] MEDS: ACETAMINOPHEN 325 MG TABLET (FP) PO PRN (14:14)
--- NOTE | 2019-04-07 16:32 | PN ---
Progress Note, Physician History of Present Illness: stable - Current Medication List Current Medications: Active Medications Acetaminophen (Tylenol -) 650 mg PO Q6H PRN PRN Reason: PAIN Last Admin: 04/07/19 14:14 Dose: 650 mg Diphenhydramine HCl (Benadryl -) 25 mg PO HS PRN PRN Reason: INSOMNIA Last Admin: 04/05/19 21:32 Dose: 25 mg Piperacillin Sod/Tazobactam (Sod 3.375 gm/ Dextrose) 50 mls @ 100 mls/hr IVPB Q8H-IV CELESTE; Protocol Last Admin: 04/07/19 10:43 Dose: 100 mls/hr Mesalamine (Asacol Hd -) 800 mg PO TID [facility] Last Admin: 04/07/19 14:03 Dose: 800 mg Metoprolol Succinate (Toprol Xl -) 25 mg PO DAILY [facility] Nystatin (Mycostatin Cream -) 1 applic TP BID [facility] Last Admin: 04/07/19 12:05 Dose: 1 applic Oxycodone HCl (Roxicodone -) 10 mg PO Q4H PRN PRN Reason: PAIN 6-10 Last Admin: 04/07/19 10:52 Dose: 10 mg Pantoprazole Sodium (Protonix -) 40 mg PO BID [facility] Last Admin: 04/07/19 10:43 Dose: 40 mg Potassium Chloride (K-Dur -) 40 meq PO BID [facility] Last Admin: 04/07/19 10:52 Dose: 40 meq Warfarin Sodium (Coumadin -) 7.5 mg PO DAILY@1800 [facility] Last Admin: 04/06/19 18:20 Dose: Not Given - Objective Vital Signs: Vital Signs Temperature 97.9 F 04/07/19 14:00 Pulse Rate 113 H 04/07/19 14:00 Respiratory Rate 20 04/07/19 14:00 Blood Pressure 134/49 L 04/07/19 14:00 O2 Sat by Pulse Oximetry (%) 97 04/07/19 09:00 Constitutional: Yes: No Distress HENT: Yes: Atraumatic Neck: Yes: Supple Cardiovascular: Yes: Regular Rate and Rhythm Respiratory: Yes: CTA Bilaterally Gastrointestinal: Yes: Normal Bowel Sounds Extremities: Yes: Other (llex cellulitis) Edema: Yes Edema: LLE: 2+ Neurological: Yes: Alert, Oriented Labs: CBC, BMP 04/05/19 08:00 04/05/19 08:00 INR, PTT INR 2.95 (0.83-1.09) H 04/07/19 09:00 Problem List - Problems (1) Anemia Assessment/Plan: s/p blood transfusion h/h stable Code(s): D64.9 - ANEMIA, UNSPECIFIED (2) Leukocytosis Code(s): D72.829 - ELEVATED WHITE BLOOD CELL COUNT, UNSPECIFIED (3) Supratherapeutic INR Assessment/Plan: on coumadin Code(s): R79.1 - ABNORMAL COAGULATION PROFILE (4) Wound of lower extremity Assessment/Plan: iv abx id and vascular consult woundcare dressing change Code(s): S81.809A - UNSPECIFIED OPEN WOUND, UNSPECIFIED LOWER LEG, INIT ENCNTR (5) Hypokalemia Assessment/Plan: on po k Code(s): E87.6 - HYPOKALEMIA
[2019-04-07] MEDS: WARFARIN NA 2 MG TABLET (UD) PO SCH (17:23)
[2019-04-07] MEDS: diphenhydrAMINE HCL 25 MG CAPSULE (FP) PO PRN (21:17)
[2019-04-08] MEDS: oxyCODONE HCL 5 MG TABLET PO PRN ×4 (03:26→18:05)
[2019-04-08] MEDS: MESALAMINE 800 MG TABLET.DR PO SCH ×2 (05:41→14:05)
[2019-04-08 09:04] LABS: INR 2.79 (0.83-1.09); PROTHROMBIN TIME (PATIENT) 33.3 SEC (9.7-13.0)
[2019-04-08] MEDS: PANTOPRAZOLE 40 MG TABLET (FP) PO SCH (09:16)
[2019-04-08] MEDS: POTASSIUM CHLORIDE TABS 10 MEQ TABLET.ER (FP) PO SCH (09:16)
[2019-04-08] MEDS: NYSTATIN 100,000 UNIT/GM TOPICAL CREAM 15 GM TUBE TP SCH (09:17)
[2019-04-08] MEDS ORDERED: metoPROLOL SUCCINATE 25 MG TAB.SR.24H (FP) PO SCH (10:00)
--- NOTE | 2019-04-08 13:29 | PN ---
Progress Note, Physician - Current Medication List Current Medications: Active Medications Acetaminophen (Tylenol -) 650 mg PO Q6H PRN PRN Reason: PAIN Last Admin: 04/07/19 14:14 Dose: 650 mg Diphenhydramine HCl (Benadryl -) 25 mg PO HS PRN PRN Reason: INSOMNIA Last Admin: 04/07/19 21:17 Dose: 25 mg Mesalamine (Asacol Hd -) 800 mg PO TID [facility] Last Admin: 04/08/19 05:41 Dose: 800 mg Metoprolol Succinate (Toprol Xl -) 25 mg PO DAILY [facility] Last Admin: 04/08/19 09:16 Dose: 25 mg Nystatin (Mycostatin Cream -) 1 applic TP BID [facility] Last Admin: 04/08/19 09:17 Dose: 1 applic Oxycodone HCl (Roxicodone -) 10 mg PO Q4H PRN PRN Reason: PAIN 6-10 Last Admin: 04/08/19 10:06 Dose: 10 mg Pantoprazole Sodium (Protonix -) 40 mg PO BID [facility] Last Admin: 04/08/19 09:16 Dose: 40 mg Potassium Chloride (K-Dur -) 40 meq PO BID [facility] Last Admin: 04/08/19 09:16 Dose: 40 meq Warfarin Sodium (Coumadin -) 4 mg PO DAILY@1800 [facility] Last Admin: 04/07/19 17:23 Dose: 4 mg - Objective Vital Signs: Vital Signs Temperature 99.2 F 04/08/19 09:19 Pulse Rate 108 H 04/08/19 09:19 Respiratory Rate 16 04/08/19 09:19 Blood Pressure 105/68 04/08/19 09:19 O2 Sat by Pulse Oximetry (%) 97 04/08/19 09:00 Labs: CBC, BMP 04/05/19 08:00 04/05/19 08:00 INR, PTT INR 2.79 (0.83-1.09) H 04/08/19 08:25
--- NOTE | 2019-04-08 15:45 | DS ---
Physical Examination Vital Signs: Vital Signs Temperature 99.2 F 04/08/19 09:19 Pulse Rate 108 H 04/08/19 09:19 Respiratory Rate 16 04/08/19 09:19 Blood Pressure 105/68 04/08/19 09:19 O2 Sat by Pulse Oximetry (%) 97 04/08/19 09:00 Constitutional: Yes: No Distress HENT: Yes: Atraumatic Neck: Yes: Supple Cardiovascular: Yes: Regular Rate and Rhythm Respiratory: Yes: CTA Bilaterally Gastrointestinal: Yes: Normal Bowel Sounds Extremities: Yes: WNL Neurological: Yes: Alert, Oriented Labs: CBC, BMP 04/05/19 08:00 04/05/19 08:00 Discharge Summary Reason For Visit: WOUND OF LOWER EXTREMITY, LEUKOCYTOSIS Current Active Problems Anemia (Acute) Anxiety and depression (Acute) Atrial fibrillation (Acute) HTN (hypertension) (Acute) Hypokalemia (Acute) Leukocytosis (Acute) Obesity (Acute) Pain (Acute) Paroxysmal A-fib (Acute) Pulmonary embolism (Acute) S/P IVC filter (Acute) Sedentary lifestyle (Acute) Sinus tachycardia (Acute) Supratherapeutic INR (Acute) Ulcerative colitis (Acute) Wound of left lower extremity (Acute) Wound of lower extremity (Acute) Condition: Stable - Instructions Referrals: Agustín Sheldon MD [Staff Physician] - Kwame Marcum DO [Staff Physician] - - Home Medications Comprehensive Discharge Medication List: Ambulatory Orders Ferrous Sulfate Liquid [Feosol Liquid] 300 mg PO TID 09/11/12 Furosemide [Lasix -] 40 mg PO HS 09/11/12 Mesalamine [Asacol -] 800 mg PO TID 09/11/12 Multivitamin [Multivitamins] 1 each PO DAILY 09/11/12 Warfarin Sodium [Coumadin] 4 mg PO HS 09/11/12 Amox-Tr/K Cl [Augmentin 875-125mg Tablet -] 1 each PO BID #14 tablet 09/19/12 Oxycodone HCl/Acetaminophen [Percocet 5-325 mg Tablet] 1 - 2 tab PO Q6H PRN #0 tablet 09/19/12 Pantoprazole Sodium [Protonix -] 40 mg PO BID #0 tablet.ec 09/19/12 [facility]
[2019-04-08] MEDS: WARFARIN NA 2 MG TABLET (UD) PO SCH (17:06)
[2019-04-08 18:16] VITALS: BP 103/56; PULSE 94; TEMP 98.3
== END 2019-04-08 21:25 | disposition home or self-care (01) | DRG 384 ==
LOC: JER 11:35 → JERBED 14:08 → J5S 19:31
PROVIDERS: ADMIT Internal Medicine; ATTEND Internal Medicine
PROC: 30233N1 Transfusion of Nonautologous Red Blood Cells into Peripheral Vein, Percutaneous Approach (ICD-10-PCS; principal; 2019-03-24)
DX: S81.809A Unspecified open wound, unspecified lower leg, initial encounter (principal); D72.829 Elevated white blood cell count, unspecified; R79.1 Abnormal coagulation profile; Z68.39 Body mass index [BMI] 39.0-39.9, adult; D47.3 Essential (hemorrhagic) thrombocythemia; I10 Essential (primary) hypertension; R58 Hemorrhage, not elsewhere classified; F41.8 Other specified anxiety disorders; D64.9 Anemia, unspecified; I48.0 Paroxysmal atrial fibrillation; I42.9 Cardiomyopathy, unspecified; E66.01 Morbid (severe) obesity due to excess calories; I26.99 Other pulmonary embolism without acute cor pulmonale; I95.9 Hypotension, unspecified; E87.6 Hypokalemia; E86.0 Dehydration; T14.90XA Injury, unspecified, initial encounter; X58.XXXA Exposure to other specified factors, initial encounter; Y93.9 Activity, unspecified; Y92.89 Other specified places as the place of occurrence of the external cause; Y99.9 Unspecified external cause status
CPT/HCPCS: 36415; 36430; 36511; 71045-TC-FY; 74177-TC; 80053; 80061; 82272; 83036; 83721; 83735; 83880; 84100; 84443; 84703; 85025; 85027; 85610; 85730; 86850; 86900; 86901; 86922; 87040; 87070; 87186; 87205; 93005; 93010; 97116-GP; 97161-GP; 99283-25; J0131; J1644; J7030; P9038; P9058

== ENCOUNTER 2019-06-17 19:30 | Emergency (ER) | payer OTHER ==
--- NOTE | 2019-06-17 19:51 | PDOC ---
Rapid Medical Evaluation Time Seen by Provider: 06/17/19 19:46 Medical Evaluation: Allergies Allergy/AdvReac Type Severity Reaction Status Date / Time No Known Allergies Allergy Verified 03/24/19 12:16 06/17/19 19:47 I have performed a brief in-person evaluation of this patient. The patient presents with a chief complaint of: R buttock pain radiating to the RLE for 2 years intermittently, worsening lately. Pt not taking any pain meds. NO PMHx I have ordered the following: alexandru Rivas The patient will proceed to the ED for further evaluation. Discharge Disposition - Diagnosis Sciatica Qualifiers: Laterality: right Qualified Code(s): M54.31 - Sciatica, right side - Referrals - Patient Instructions - Post Discharge Activity
[2019-06-17] MEDS ORDERED: IBUPROFEN 600 MG TABLET (FP) PO ONE (19:52)
[2019-06-17] MEDS ORDERED: METHOCARBAMOL 500 MG TABLET PO ONE (19:52)
[2019-06-17 19:53] VITALS: BP 127/75; PULSE 82; TEMP 98; BMI 39.6
[2019-06-17] MEDS ORDERED: KETOROLAC TROMETHAMINE 60 MG/2 ML VIAL ONE (20:05)
[2019-06-17] MEDS ORDERED: KETOROLAC TROMETHAMINE 60 MG/2 ML VIAL IM ONE (20:05)
--- NOTE | 2019-06-17 20:18 | PDOC ---
History of Present Illness - General Chief Complaint: Back Pain Stated Complaint: BACK PAIN Time Seen by Provider: 06/17/19 19:46 - History of Present Illness Initial Comments: 06/17/19 20:12 48-year-old female with chronic lower back pain complains of lower back pain with posterior lateral right leg radicular symptoms without loss of bowel or bladder function or saddle paresthesia exacerbated over the last 2 weeks without any precipitating traumatic event. No systemic symptoms. Past History - Past Medical History Allergies/Adverse Reactions: Allergies Allergy/AdvReac Type Severity Reaction Status Date / Time No Known Allergies Allergy Verified 03/24/19 12:16 Home Medications: Ambulatory Orders Ferrous Sulfate Liquid [Feosol Liquid] 300 mg PO TID 09/11/12 Furosemide [Lasix -] 40 mg PO HS 09/11/12 Mesalamine [Asacol -] 800 mg PO TID 09/11/12 Multivitamin [Multivitamins] 1 each PO DAILY 09/11/12 Warfarin Sodium [Coumadin] 4 mg PO HS 09/11/12 Oxycodone HCl/Acetaminophen [Percocet 5-325 mg Tablet] 1 - 2 tab PO Q6H PRN #0 tablet 09/19/12 Pantoprazole Sodium [Protonix -] 40 mg PO BID #0 tablet.ec 09/19/12 Mesalamine [Asacol HD -] 800 mg PO TID #90 tablet. 04/08/19 Cyclobenzaprine HCl [Flexeril 10 mg] 10 mg PO HS PRN #10 tablet 06/17/19 Methylprednisolone [Medrol Dose Abhinav] 4 mg PO ASDIR #21 tablet 06/17/19 Anemia: Yes Cardiac Disorders: Yes (afib) COPD: No GI Disorders: Yes (ulcerative colitis) HTN: Yes - Immunization History Immunization Up to Date: Yes - Suicide/Smoking/Psychosocial Hx Smoking Status: No Smoking History: Never smoked Have you smoked in the past 12 months: No Number of Cigarettes Smoked Daily: 0 If you are a former smoker, when did you quit?: stopped 5 yrs ago Cigars Per Day: 0 Information on smoking cessation initiated: No Hx Alcohol Use: No Drug/Substance Use Hx: No Substance Use Type: None Hx Substance Use Treatment: No Review of Systems - Review of Systems Constitutional: No: Fever Musculoskeletal: Yes: Back Pain *Physical Exam - Vital Signs Last Vital Signs Temp Pulse Resp BP Pulse Ox 98.0 F 82 16 127/75 100 06/17/19 19:51 06/17/19 19:51 06/17/19 19:51 06/17/19 19:51 06/17/19 19:51 - Physical Exam Comments: 06/17/19 20:13 Lumbar spine skin color and temperature are normal. There isdecreased range of motion. 5 out of 5 strength in bilateral lower extremities.Straight leg raise test is positive bilaterally. Thighs and calves are soft and nontender. There are no gross sensory motor deficits. Neurovascularly intact. ED Treatment Course - Medications Given in the ED: ED Medications Discontinued Medications Generic Name Dose Route Start Last Admin Trade Name Freq PRN Reason Stop Dose Admin Ibuprofen 600 mg 06/17/19 19:52 06/17/19 20:09 Motrin - PO 06/17/19 19:53 Not Given ONCE ONE Ketorolac Tromethamine 60 mg 06/17/19 20:05 06/17/19 20:09 Toradol Injection - IM 06/17/19 20:06 60 mg ONCE ONE Administration Methocarbamol 1,000 mg 06/17/19 19:52 06/17/19 20:09 Robaxin - PO 06/17/19 19:53 Not Given ONCE ONE Medical Decision Making - Medical Decision Making 06/17/19 20:39 Mild relief with Toradol. No gross sensory motor deficits on examination. We'll discharge home with spine surgery follow-up Medrol Dosepak and Flexeril *DC/Admit/Observation/Transfer Diagnosis at time of Disposition: Sciatica Qualifiers: Laterality: right Qualified Code(s): M54.31 - Sciatica, right side - Discharge Dispostion Disposition: HOME Condition at time of disposition: Improved Decision to Admit order: No - Prescriptions Prescriptions: Cyclobenzaprine HCl [Flexeril 10 mg] 10 mg PO HS PRN #10 tablet PRN Reason: Muscle Spasms Methylprednisolone [Medrol Dose Abhinav] 4 mg PO ASDIR #21 tablet - Referrals Referrals: Darren Camacho MD, [facility] [Staff Physician] - - Patient Instructions Additional Instructions: Please start steroid pack in the morning. Take the medication as directed. The muscle relaxers one tablet before bedtime and will make you sleepy. NO anti- inflammatory such as Advil Motrin Aleve and ibuprofen. You're given an injection of a long-acting anti-inflammatory in the emergency room do not take any anti-inflammatories. Return to the emergency room should symptoms worsen or go unresolved and follow- up with neuro or spine surgery without fail in 1-2 days for further evaluation and treatment options. Follow-up with neurosurgery without fail in the next 1-2 days for further evaluation and treatment options. - Post Discharge Activity
== END 2019-06-17 20:50 | disposition home or self-care (01) ==
LOC: JERFT 19:30
PROC: 3E0233Z Introduction of Anti-inflammatory into Muscle, Percutaneous Approach (ICD-10-PCS; principal; 2019-06-17)
DX: M54.31 Sciatica, right side (principal); Z87.891 Personal history of nicotine dependence; I10 Essential (primary) hypertension; I48.91 Unspecified atrial fibrillation
CPT/HCPCS: 99281-25